=== PATIENT | female | born 1930 | race Caucasian/White ===

== ENCOUNTER 2016-12-05 16:34 | Inpatient (IN) | payer MEDICARE ==
[~2016-12-05] VITALS: Ht 157.5 cm; Wt 66.4 kg
[~2016-12-05 16:34] MED LIST: APIX2.5 PO; DIVA250ER PO; LEVO50TA4 PO; ULTR50TA PO; [UNRECOGNIZED DRUG - CODE] PO
[2016-12-05 16:38] VITALS: BP 139/64; PULSE 44; RESP 12; TEMP 98.2; O2SAT 94
[2016-12-05] MEDS ORDERED: SODIUM CHLORIDE 0.9% FLUSH 5 ML FLUSH IVF PRN ×2 (20:15→22:45)
[2016-12-05 20:16] VITALS: BP 136/63; PULSE 41; RESP 16; O2SAT 97
--- NOTE | 2016-12-05 20:18 | PD ---
HPI Chief Complaint: Neuro Symptoms/ Deficits Time Seen by Provider: 20:15 Travel History International Travel<30 days: No Contact w/Intl Traveler<30days: No Traveled to known affect area: No History of Present Illness HPI Patient comes in with her daughter for evaluation of altered mental status lasted approximately an hour last night. Daughter reports EMS came and checked on the patient was told that she did not meet stroke criteria recommended following up with primary care doctor today. They contacted primary care doctor today who recommended she come to the emergency room for further treatment and evaluation. Daughter states that she's had a couple more episodes of this today were her mother has had some "garbled speech" and not recognizing her or daughter's . Patient has a history of stroke in 2014 and takes eliquist for this. Daughter reports she only gives approximate half a dose of the Erica Isaías secondary to patient's hemorrhoids. Patient is notably bradycardic and daughter reports this is chronic and sees Dr. Bradford for this. Patient sees Dr. Patton yearly for her history of CVA. Patient denies any medical complaints or concerns at the moment. Denies any pain anywhere. Is uncertain as to why she is here. PFSH Past Medical History Arthritis: Yes (BILATERAL KNEES) Asthma: No Atrial Fibrillation: Yes Blood Disorders: No Heart Rhythm Problems: Yes (afib) Cancer: No Cardiovascular Problems: Yes (BRADYCARDIA, SICK SINUS SYNDROME) High Cholesterol: Yes Chest Pain: Yes Congestive Heart Failure: No COPD: No Cerebrovascular Accident: Yes Dementia: Yes Diabetes: No Diminished Hearing: No Endocrine: Yes Gastrointestinal Disorders: Yes (incontinence) GERD: Yes Genitourinary: Yes (incontinence) Hypertension: Yes Musculoskeletal: Yes Neurologic: Yes (?dementia/ forgetfullness) Reproductive: No Respiratory: No Seizures: Yes Sleep Apnea: No Thyroid Disease: Yes (HYPOTHYROIDISM) Past Surgical History Tonsillectomy: Yes Other Surgery: Yes (breast biopsy) Social History Alcohol Use: No Tobacco Use: No Substance Use: No Allergies-Medications (Allergen,Severity, Reaction): Coded Allergies: Lasix (Verified Allergy, Unknown, SWELLING, HIVES, 12/05/16) Tylenol #3 (Verified Allergy, Unknown, CONFUSION, 12/05/16) Codeine (Unverified Adverse Reaction, Severe, 12/05/16) CONFUSION Reported Meds & Prescriptions Reported Meds & Active Scripts Active Ultram (Tramadol HCl) 50 Mg Tab 1-2 Mg PO Q4H PRN Depakote ER 250 mg (Divalproex Sodium) 250 Mg Mirza 250 Mg PO BID 30 Days Eliquis (Apixaban) 2.5 Mg Tab 2.5 Mg PO BID 30 Days Reported Amiloride-Hydrochlorothiazide (Amiloride/HCTZ) 5-50 Mg Tab 1 Tab PO DAILY Give with food. Tramadol (Tramadol HCl) 50 Mg Tab 50 Mg PO Q4H PRN Levothyroxine (Levothyroxine Sodium) 50 Mcg Tab 50 Mcg PO DAILY Divalproex ER (Divalproex Sodium) 250 Mg Mirza 250 Mg PO DAILY Eliquis (Apixaban) 2.5 Mg Tab 2.5 Mg PO BID [Amiloride-Hctz] 5-50 Mg PO DAILY Levothyroxine 50 mcg (Levothyroxine Sodium) 50 Mcg Tab 1 Tab PO DAILY Review of Systems ROS Limitations: Altered Mental Status Except as stated in HPI: all other systems reviewed are Neg Physical Exam Exam Limitations: Altered Mental Status Narrative GENERAL: Well-developed, overly nourished, in no acute distress, and non-ill appearing. SKIN: Warm and dry. HEAD: Atraumatic. Normocephalic. EYES: Pupils equal and round. EOMI. No scleral icterus. No injection or drainage. ENT: No nasal bleeding or discharge. Mucous membranes pink and moist. NECK: Trachea midline. Supple. No nuclear rigidity. CARDIOVASCULAR: Bradycardia rate and regular rhythm. No murmur appreciated. RESPIRATORY: No accessory muscle use. No respiratory distress. Clear to auscultation. Breath sounds equal bilaterally. Patient is noted to have an oxygen saturation of 88% on room air during exam. GASTROINTESTINAL: Abdomen soft, non-tender, nondistended. Hepatic and splenic margins not palpable. Normal bowel sounds 4. No pulsatile mass. MUSCULOSKELETAL: No obvious deformities. No clubbing. No cyanosis. No edema. Full range of motion. No pronator drift, equal rise and fall of eyebrows bilaterally. Strength equal bilateral lower extremity with plantar and dorsiflexion. No deviation of the tongue. NEUROLOGICAL: Awake and alert. No obvious cranial nerve deficits. Motor grossly within normal limits. Normal speech. PSYCHIATRIC: Appropriate mood and affect; insight and judgment normal. Data Data Last Documented VS Vital Signs Date Time Temp Pulse Resp B/P Pulse Ox O2 Delivery O2 Flow Rate FiO2 12/05/16 20:16 41 16 136/63 97 Nasal Cannula 2 12/05/16 16:38 98.2 Orders Electrocardiogram (12/05/16 20:10) Complete Blood Count With Diff (12/05/16 20:10) Comprehensive Metabolic Panel (12/05/16 20:10) Prothrombin Time / Inr (Pt) (12/05/16 20:10) Act Partial Throm Time (Ptt) (12/05/16 20:10) Urinalysis - C+S If Indicated (12/05/16 20:10) Chest, Single Ap (12/05/16 20:10) Blood Glucose (12/05/16 20:10) Ecg Monitoring (12/05/16 20:10) Iv Access Insert/Monitor (12/05/16 20:10) Oximetry (12/05/16 20:10) Sodium Chloride 0.9% Flush (Ns Flush) (12/05/16 20:15) Ct Brain W/O Iv Contrast(Rout) (12/05/16 ) Arterial Blood Gas (Abg) (12/05/16 ) Oxygen Administration (12/05/16 20:10) Admit Order (Ed Use Only) (12/05/16 22:13) Labs Laboratory Tests Test 12/05/16 12/05/16 12/05/16 20:14 20:25 21:11 White Blood Count 6.2 TH/MM3 Red Blood Count 3.72 MIL/MM3 Hemoglobin 12.8 GM/DL Hematocrit 36.9 % Mean Corpuscular Volume 99.1 FL Mean Corpuscular Hemoglobin 34.5 PG Mean Corpuscular Hemoglobin 34.8 % Concent Red Cell Distribution Width 14.0 % Platelet Count 247 TH/MM3 Mean Platelet Volume 7.6 FL Neutrophils (%) (Auto) 54.7 % Lymphocytes (%) (Auto) 32.0 % Monocytes (%) (Auto) 12.0 % Eosinophils (%) (Auto) 0.7 % Basophils (%) (Auto) 0.6 % Neutrophils # (Auto) 3.4 TH/MM3 Lymphocytes # (Auto) 2.0 TH/MM3 Monocytes # (Auto) 0.7 TH/MM3 Eosinophils # (Auto) 0.0 TH/MM3 Basophils # (Auto) 0.0 TH/MM3 CBC Comment DIFF FINAL Differential Comment Prothrombin Time 11.2 SEC Prothromb Time International 1.0 RATIO Ratio Activated Partial 27.1 SEC Thromboplast Time Sodium Level 130 MEQ/L Potassium Level 3.7 MEQ/L Chloride Level 93 MEQ/L Carbon Dioxide Level 29.2 MEQ/L Anion Gap 8 MEQ/L Blood Urea Nitrogen 13 MG/DL Creatinine 0.62 MG/DL Estimat Glomerular Filtration 91 ML/MIN Rate Random Glucose 93 MG/DL Calcium Level 8.7 MG/DL Total Bilirubin 0.4 MG/DL Aspartate Amino Transf 15 U/L (AST/SGOT) Alanine Aminotransferase 17 U/L (ALT/SGPT) Alkaline Phosphatase 58 U/L Total Protein 6.8 GM/DL Albumin 3.6 GM/DL Blood Gas Puncture Site LT BRACHIAL Blood Gas Patient Temperature 98.6 Blood Gas HCO3 25 mmol/L Blood Gas Base Excess 1.9 mmol/L Blood Gas Oxygen Saturation 96 % Arterial Blood pH 7.47 Arterial Blood Partial 35 mmHg Pressure CO2 Arterial Blood Partial 119 mmHG Pressure O2 Arterial Blood Oxygen Content 17.2 Vol % Arterial Blood 2.1 % Carboxyhemoglobin Arterial Blood Methemoglobin 1.6 % Blood Gas Hemoglobin 12.7 G/DL Oxygen Delivery Device NASAL CANNULA Blood Gas Liter Flow 2 L/M Urine Color YELLOW Urine Turbidity HAZY Urine pH 7.0 Urine Specific [place] 1.018 Urine Protein NEG mg/dL Urine Glucose (UA) NEG mg/dL Urine Ketones NEG mg/dL Urine Occult Blood NEG Urine Nitrite NEG Urine Bilirubin NEG Urine Urobilinogen LESS THAN 2.0 MG/DL Urine Leukocyte Esterase NEG Urine RBC 5 /hpf Urine WBC 1 /hpf Microscopic Urinalysis Comment CATH-CULT NOT IND MDM Medical Decision Making Medical Screen Exam Complete: Yes Emergency Medical Condition: Yes Interpretation(s) EKG read by Dr. Zhang shows bradycardia with ventricular rate of 38. No STEMI. Differential Diagnosis Hypoxic, worsening dementia, electrolyte abnormality, pneumonia, UTI, tumor, TIA , other Narrative Course Patient's exam initial laboratory radiologic studies were obtained and reviewed. Discussed patient with Dr. Zhang, who saw and evaluated the patient and recommends having patient placed in observation for TIA. Discussed all findings and plan of care with patient and her daughter, who is agreeable to have patient admitted. All questions were answered. Physician Communication Physician Communication [address] Gonzales who is agreeable to admit the patient. Diagnosis Primary Impression: TIA (transient ischemic attack) Qualified Code: G45.9 - Transient cerebral ischemia, unspecified type Admitting Information Admitting Physician Requests: Observation Condition: Stable Eliazar Hoover Dec 05, 2016 20:18
[2016-12-05 20:30] LABS: BLOOD GAS BASE EXCESS 1.9 mmol/L (-2-2); BLOOD GAS CARBOXYHEMOGLOBIN 2.1 % (0-4); BLOOD GAS HCO3 25 mmol/L (22-26); BLOOD GAS METHEMOGLOBIN 1.6 % (0-2); BLOOD GAS O2 HGB SATURATION 96 % (90-100); BLOOD GAS OXYGEN CONTENT 17.2 Vol % (12.0-20.0); BLOOD GAS PCO2 35 mmHg (38-42); BLOOD GAS PO2 119 mmHG (61-120); BLOOD GAS TOTAL HGB 12.7 G/DL (12.0-16.0); CRITICAL VALUE NO; DRAW SITE LT BRACHIAL; LITER FLOW 2 L/M; NUMBER OF ARTERIAL PUNCTURES 2; OXYGEN DEVICE NASAL CANNULA; STAT YES; TEMP CORR TO 98.6; ULNAR PULSE Y
[2016-12-05] MEDS ORDERED: LEVO50TA4 PO (20:45)
[2016-12-05] MEDS ORDERED: DIVA250T3 PO (20:45)
[2016-12-05] MEDS ORDERED: TRAM50TA PO (20:45)
[2016-12-05] MEDS ORDERED: MODU550 PO (20:45)
[2016-12-05] MEDS ORDERED: APIX2.5T PO (20:45)
[2016-12-05 20:51] LABS: AUTOMATED NEUTROPHIL # 3.4 TH/MM3 (1.8-7.7); BASOPHIL % 0.6 % (0.0-2.0); EOSINOPHIL % 0.7 % (0.0-4.0); HEMATOCRIT 36.9 % (35.0-46.0); HEMO FLAGS DIFF FINAL; MEAN CELL VOLUME 99.1 FL (80.0-100.0); MEAN CORPUSCULAR HEMOGLOBIN 34.5 PG (27.0-34.0); MEAN CORPUSCULAR HGB CONC 34.8 % (32.0-36.0); NEUT % 54.7 % (16.0-70.0); PLATELET COUNT 247 TH/MM3 (150-450); RED BLOOD COUNT 3.72 MIL/MM3 (4.00-5.30); WHITE BLOOD COUNT 6.2 TH/MM3 (4.0-11.0)
[2016-12-05 21:01] LABS: APTT (PATIENT) 27.1 SEC (24.3-30.1); PROTHROMBIN TIME - PATIENT 11.2 SEC (9.8-11.6)
[2016-12-05 21:19] LABS: ANION GAP 8 MEQ/L (5-15); AST (GOT) 15 U/L (15-37); BICARBONATE 29.2 MEQ/L (21.0-32.0); BLOOD UREA NITROGEN 13 MG/DL (7-18); CHLORIDE 93 MEQ/L (98-107); GLOMERULAR FILTRATION RATE 91 ML/MIN (>89); POTASSIUM 3.7 MEQ/L (3.5-5.1); SODIUM (NA) 130 MEQ/L (136-145)
[2016-12-05 21:23] LABS: ALKALINE PHOSPHATASE 58 U/L (45-117); ALT (GPT) 17 U/L (10-53); TOTAL BILIRUBIN ADULT 0.4 MG/DL (0.2-1.0)
--- NOTE | 2016-12-05 21:25 | RADRPT ---
EXAM DATE/TIME: 12/05/2016 20:57 [facility] COMPARISON: CT BRAIN W/O CONTRAST, September 24, 2014, 18:15. INDICATIONS : Altered mental status, confusion and lethargy. RADIATION DOSE: 34.54 CTDIvol (mGy) MEDICAL HISTORY : Cardiovascular disease. Cerebrovascular disease. Dementia.Seizures. SURGICAL HISTORY : None. ENCOUNTER: Initial ACUITY: 1 day PAIN SCALE: 0/10 LOCATION: cranial TECHNIQUE: Multiple contiguous axial images were obtained of the head. Using automated exposure control and adj ustment of the mA and/or kV according to patient size, radiation dose was kept as low as reasonably a chievable to obtain optimal diagnostic quality images. FINDINGS: CEREBRUM: The ventricles are normal for age. No evidence of midline shift, mass lesion, hemorrhage or acute in farction. No extra-axial fluid collections are seen. POSTERIOR FOSSA: The cerebellum and brainstem are intact. The 4th ventricle is midline. The cerebellopontine angle i s unremarkable. EXTRACRANIAL: The visualized portion of the orbits is intact. SKULL: The calvaria is intact. No evidence of skull fracture. CONCLUSION: 1. No acute intracranial abnormalities. White matter ischemic changes. Jerad Hull MD on December 05, 2016 at 21:22 Board Certified Radiologist. This report was verified electronically.
--- NOTE | 2016-12-05 21:32 | RADRPT ---
EXAM DATE/TIME: 12/05/2016 18:42 [facility] COMPARISON: CHEST SINGLE AP, February 06, 2015, 3:33. INDICATIONS : Syncopal episode today. MEDICAL HISTORY : Hypertension. Hypercholesterolemia. Seizures. SURGICAL HISTORY : None. ENCOUNTER: Initial ACUITY: 1 day PAIN SCORE: Non-responsive. LOCATION: Bilateral chest FINDINGS: A single view of the chest demonstrates the lungs to be symmetrically aerated without evidence of mas s, infiltrate or effusion. Minimal basilar atelectasis. Cardiomegaly. Tortuous aorta. CONCLUSION: 1. Basilar atelectasis. Cardiomegaly. Tortuous aorta. Jerad Hull MD on December 05, 2016 at 21:28 Board Certified Radiologist. This report was verified electronically.
[2016-12-05 21:36] LABS: BLOOD, URINE NEG (NEG); COMMENT (UR) CATH-CULT NOT IND; CULTURE IF INDICATED CATH CULTURE NOT IND; GLUCOSE,URINE NEG (NEG); KETONE, URINE NEG (NEG); NITRITE,URINE NEG (NEG); URINE COLOR YELLOW (YELLW/STRAW)
--- NOTE | 2016-12-05 22:25 | PD ---
Data Data Last Documented VS Vital Signs Date Time Temp Pulse Resp B/P Pulse Ox O2 Delivery O2 Flow Rate FiO2 12/05/16 20:16 41 16 136/63 97 Nasal Cannula 2 12/05/16 16:38 98.2 Orders Electrocardiogram (12/05/16 20:10) Complete Blood Count With Diff (12/05/16 20:10) Comprehensive Metabolic Panel (12/05/16 20:10) Prothrombin Time / Inr (Pt) (12/05/16 20:10) Act Partial Throm Time (Ptt) (12/05/16 20:10) Urinalysis - C+S If Indicated (12/05/16 20:10) Chest, Single Ap (12/05/16 20:10) Blood Glucose (12/05/16 20:10) Ecg Monitoring (12/05/16 20:10) Iv Access Insert/Monitor (12/05/16 20:10) Oximetry (12/05/16 20:10) Sodium Chloride 0.9% Flush (Ns Flush) (12/05/16 20:15) Ct Brain W/O Iv Contrast(Rout) (12/05/16 ) Arterial Blood Gas (Abg) (12/05/16 ) Oxygen Administration (12/05/16 20:10) Admit Order (Ed Use Only) (12/05/16 22:13) Labs Laboratory Tests Test 12/05/16 12/05/16 12/05/16 20:14 20:25 21:11 White Blood Count 6.2 TH/MM3 Red Blood Count 3.72 MIL/MM3 Hemoglobin 12.8 GM/DL Hematocrit 36.9 % Mean Corpuscular Volume 99.1 FL Mean Corpuscular Hemoglobin 34.5 PG Mean Corpuscular Hemoglobin 34.8 % Concent Red Cell Distribution Width 14.0 % Platelet Count 247 TH/MM3 Mean Platelet Volume 7.6 FL Neutrophils (%) (Auto) 54.7 % Lymphocytes (%) (Auto) 32.0 % Monocytes (%) (Auto) 12.0 % Eosinophils (%) (Auto) 0.7 % Basophils (%) (Auto) 0.6 % Neutrophils # (Auto) 3.4 TH/MM3 Lymphocytes # (Auto) 2.0 TH/MM3 Monocytes # (Auto) 0.7 TH/MM3 Eosinophils # (Auto) 0.0 TH/MM3 Basophils # (Auto) 0.0 TH/MM3 CBC Comment DIFF FINAL Differential Comment Prothrombin Time 11.2 SEC Prothromb Time International 1.0 RATIO Ratio Activated Partial 27.1 SEC Thromboplast Time Sodium Level 130 MEQ/L Potassium Level 3.7 MEQ/L Chloride Level 93 MEQ/L Carbon Dioxide Level 29.2 MEQ/L Anion Gap 8 MEQ/L Blood Urea Nitrogen 13 MG/DL Creatinine 0.62 MG/DL Estimat Glomerular Filtration 91 ML/MIN Rate Random Glucose 93 MG/DL Calcium Level 8.7 MG/DL Total Bilirubin 0.4 MG/DL Aspartate Amino Transf 15 U/L (AST/SGOT) Alanine Aminotransferase 17 U/L (ALT/SGPT) Alkaline Phosphatase 58 U/L Total Protein 6.8 GM/DL Albumin 3.6 GM/DL Blood Gas Puncture Site LT BRACHIAL Blood Gas Patient Temperature 98.6 Blood Gas HCO3 25 mmol/L Blood Gas Base Excess 1.9 mmol/L Blood Gas Oxygen Saturation 96 % Arterial Blood pH 7.47 Arterial Blood Partial 35 mmHg Pressure CO2 Arterial Blood Partial 119 mmHG Pressure O2 Arterial Blood Oxygen Content 17.2 Vol % Arterial Blood 2.1 % Carboxyhemoglobin Arterial Blood Methemoglobin 1.6 % Blood Gas Hemoglobin 12.7 G/DL Oxygen Delivery Device NASAL CANNULA Blood Gas Liter Flow 2 L/M Urine Color YELLOW Urine Turbidity HAZY Urine pH 7.0 Urine Specific [place] 1.018 Urine Protein NEG mg/dL Urine Glucose (UA) NEG mg/dL Urine Ketones NEG mg/dL Urine Occult Blood NEG Urine Nitrite NEG Urine Bilirubin NEG Urine Urobilinogen LESS THAN 2.0 MG/DL Urine Leukocyte Esterase NEG Urine RBC 5 /hpf Urine WBC 1 /hpf Microscopic Urinalysis Comment CATH-CULT NOT IND MDM Medical Record Reviewed: Yes Supervised Visit with GRZEGORZ: Yes Narrative Course I, Dr. Zhang, have reviewed the advance practice practitioner's documentation and am in agreement, met with the patient face to face, made the diagnosis, and the medical decision making was done by me. *My assessment and Findings: CBC & BMP Diagram 12/05/16 20:14 LFTs normal INR 1.0 UA: No UTI AB.47/35/[id number] normal EKG: rate 38, no obvious P waves, pt has history of bradycardia Events could reflect TIA. Pt on Eloquis. Diagnosis Primary Impression: TIA (transient ischemic attack) Qualified Code: G45.9 - Transient cerebral ischemia, unspecified type Admitting Information Admitting Physician Requests: Observation Condition: Stable Hernandez Zhang MD Dec 05, 2016 22:25
--- NOTE | 2016-12-05 22:38 | HHI.HP ---
HPI Service [facility] Hospitalists Primary Care Physician Edward Thomas Admission Diagnosis TIA Chief Complaint: confusion, altered speech pattern Travel History International Travel<30 Days: No Contact w/Intl Traveler <30 Da: No Traveled to Known Affected Are: No History of Present Illness Patient with history of CVA and dementia comes in with her daughter for evaluation of altered mental status and speech change lasted partially an hour last night around 10:15 PM. Reportedly the patient was saying a stream of syllables that did not make any sense and produced no recognizable words. Patient was able to get up and go to the restroom during this event last night and came back to bed but still was somewhat confused. Daughter reports EMS came and checked on the patient last night at home and that she did not meet stroke criteria. They recommended following up with primary care doctor today. They contacted primary care doctor this a.m. and he reportedly returned the call around 3:30 advised seeing them to go to the ER for evaluation for possible TIA or stroke. Daughter states that she's had a couple more episodes of this today were mothers had some "garbled speech" and not recognizing her . Patient has a history of stroke in 2014 and takes Eliquis for this. Daughter proportionally gives approximate half a dose of the Eliquis secondary to patient's hemorrhoids which occasionally bleed. Patient is notably bradycardic and reports this is chronic and sees Dr. Bradford for this. Review of chart reveals that patient indeed has heart rate often in the 40s to low 50s. Patient sees Dr. Patton yearly for her history of CVA. Patient denies any medical complaints or concerns at the moment but is a bit confused. Denies any pain anywhere. Is uncertain as to why she is here. Review of Systems Constitutional: COMPLAINS OF: Fatigue, DENIES: Diaphoretic episodes, Fever, Weight gain, Weight loss, Chills, Dizziness, Change in appetite, Night Sweats Eyes: DENIES: Blurred vision, Diplopia, Eye inflammation, Eye pain, Vision loss , Photosensitivity, Double Vision Ears, nose, mouth, throat: DENIES: Tinnitus, Hearing loss, Vertigo, Nasal discharge, Oral lesions, Throat pain, Hoarseness, Ear Pain, Running Nose, Epistaxis, Sinus Pain, Toothache, Odynophagia Respiratory: DENIES: Apneas, Cough, Snoring, Wheezing, Hemoptysis, Sputum production, Shortness of breath Cardiovascular: DENIES: Chest pain, Palpitations, Syncope, Dyspnea on Exertion , PND, Lower Extremity Edema, Orthopnea, Claudication Gastrointestinal: DENIES: Abdominal pain, Black stools, Bloody stools, Constipation, Diarrhea, GERD, Nausea, Reflux, Vomiting, Difficulty Swallowing, Anorexia, See HPI Musculoskeletal: COMPLAINS OF: Joint pain Integumentary: DENIES: Abnormal pigmentation, Pruritus, Rash, Nail changes, Breast masses, Breast skin changes, Nipple discharge Hematologic/lymphatic: COMPLAINS OF: Bruising Neurologic: COMPLAINS OF: Speech Problems, DENIES: Abnormal gait, Headache, Localized weakness, Paresthesias, Seizures, Tremor, Poor Balance Psychiatric: COMPLAINS OF: Anxiety, Confusion Past Family Social History Past Medical History afib..slow ventricular response cva with tpa 2014 bradycardia..asx and evaluated by cardiology htn hypothyroidism dementia remote history of sz Past Surgical History hx hysterectomy remote injury/repair of LLE fx with chronic edema Allergies: Coded Allergies: Lasix (Verified Allergy, Unknown, SWELLING, HIVES, 12/05/16) Tylenol #3 (Verified Allergy, Unknown, CONFUSION, 12/05/16) Codeine (Unverified Adverse Reaction, Severe, 12/05/16) CONFUSION Family History Noncontributory Social History Lives with her daughter and son-in-law No tobacco or alcohol use 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 Somewhat confused but pleasant and follows simple commands. No facial asymmetry. Speech is normal on my exam. SKIN: Few purpuric lesions on forearms. Cool and dry. HEAD: Atraumatic. Normocephalic. No temporal or scalp tenderness. EYES: Pupils equal round and reactive. Extraocular motions intact. No scleral icterus. No injection or drainage. ENT: Nose without bleeding, purulent drainage or septal hematoma. Airway patent. NECK: Trachea midline. No JVD or lymphadenopathy. Supple, nontender, no meningeal signs. CARDIOVASCULAR: Regular rhythm with rate in 40s to 50s. 2/6 systolic ejection murmur heard in aortic space. No gallop or rub. RESPIRATORY: Clear to auscultation. Breath sounds equal bilaterally. No wheezes , rales, or rhonchi. GASTROINTESTINAL: Abdomen soft, non-tender, nondistended. No hepato-splenomegaly , or palpable masses. No guarding. MUSCULOSKELETAL: Extremities without clubbing or cyanosis. Trace edema distal left lower extremity which family reports is chronic. Moves all extremities well. No joint tenderness, effusion, or edema noted. No calf tenderness. NEUROLOGICAL: Awake and alert. Cranial nerves II through XII intact. Motor and sensory grossly within normal limits. Five out of 5 muscle strength in all muscle groups. Normal speech. Laboratory Laboratory Tests Test 12/05/16 12/05/16 12/05/16 20:14 20:25 21:11 White Blood Count 6.2 Red Blood Count 3.72 Hemoglobin 12.8 Hematocrit 36.9 Mean Corpuscular Volume 99.1 Mean Corpuscular Hemoglobin 34.5 Mean Corpuscular Hemoglobin 34.8 Concent Red Cell Distribution Width 14.0 Platelet Count 247 Mean Platelet Volume 7.6 Neutrophils (%) (Auto) 54.7 Lymphocytes (%) (Auto) 32.0 Monocytes (%) (Auto) 12.0 Eosinophils (%) (Auto) 0.7 Basophils (%) (Auto) 0.6 Neutrophils # (Auto) 3.4 Lymphocytes # (Auto) 2.0 Monocytes # (Auto) 0.7 Eosinophils # (Auto) 0.0 Basophils # (Auto) 0.0 CBC Comment DIFF FINAL Differential Comment Prothrombin Time 11.2 Prothromb Time International 1.0 Ratio Activated Partial 27.1 Thromboplast Time Sodium Level 130 Potassium Level 3.7 Chloride Level 93 Carbon Dioxide Level 29.2 Anion Gap 8 Blood Urea Nitrogen 13 Creatinine 0.62 Estimat Glomerular Filtration 91 Rate Random Glucose 93 Calcium Level 8.7 Total Bilirubin 0.4 Aspartate Amino Transf 15 (AST/SGOT) Alanine Aminotransferase 17 (ALT/SGPT) Alkaline Phosphatase 58 Total Protein 6.8 Albumin 3.6 Blood Gas Puncture Site LT BRACHIAL Blood Gas Patient Temperature 98.6 Blood Gas HCO3 25 Blood Gas Base Excess 1.9 Blood Gas Oxygen Saturation 96 Arterial Blood pH 7.47 Arterial Blood Partial 35 Pressure CO2 Arterial Blood Partial 119 Pressure O2 Arterial Blood Oxygen Content 17.2 Arterial Blood 2.1 Carboxyhemoglobin Arterial Blood Methemoglobin 1.6 Blood Gas Hemoglobin 12.7 Oxygen Delivery Device NASAL CANNULA Blood Gas Liter Flow 2 Urine Color YELLOW Urine Turbidity HAZY Urine pH 7.0 Urine Specific [place] 1.018 Urine Protein NEG Urine Glucose (UA) NEG Urine Ketones NEG Urine Occult Blood NEG Urine Nitrite NEG Urine Bilirubin NEG Urine Urobilinogen LESS THAN 2.0 Urine Leukocyte Esterase NEG Urine RBC 5 Urine WBC 1 Microscopic Urinalysis Comment CATH-CULT NOT IND Result Diagram: 12/05/16201312/05/162013 Imaging Last 72 hours Impressions Chest X-Ray 12/05/162009 Signed Impressions: Service Date/Time: Monday, December 05, 2016 18:42 - CONCLUSION: 1. Basilar atelectasis. Cardiomegaly. Tortuous aorta. Jerad Hull MD Head CT 12/05/16 0000 Signed Impressions: Service Date/Time: Monday, December 05, 2016 20:57 - CONCLUSION: 1. No acute intracranial abnormalities. White matter ischemic changes. Jerad Hull MD Assessment and Plan Problem List: (1) Episode of change in speech Status: Acute Plan: Questionable etiology. Patient is on eloquent but has not been on full dose reproducibly. ? TIA but not other focal deficits. Check imaging, Echo. Hopefully d/c tomorrow if not acute findings. Will need full dose Eliquis (2) Impaired cognition Status: Chronic Plan: appears to have had flare overnight. Continue to monitor. Has underlying dementia. (3) Afib Status: Chronic Plan: rate is bradycardic chronically. Will continue Eliquis and follow as outpt. (4) Hypothyroid Status: Chronic Plan: check tSh (5) Hyponatremia Status: Chronic Plan: Relatively stable serum sodium value. Discussed Condition With Patient and family Problem Qualifiers (1) Afib: Qualified Code: I48.2 - Chronic atrial fibrillation Ruslan Gonzales PhD MD Dec 05, 2016 22:38
[2016-12-05] MEDS ORDERED: GLUCAGON 1 MG/ML VIAL OTHER PRN (22:45)
[2016-12-05] MEDS ORDERED: DEXTROSE 50% IN WATER 50 ML VIAL(D50) IV PUSH PRN (22:45)
[2016-12-06] VITALS (10 sets, daily range): BP systolic 119–169; BP diastolic 56–78; PULSE 39–56; RESP 16–20; TEMP 97.8–98; O2SAT 95–100
[2016-12-06] MEDS: APIXABAN 5 MG TABLET PO SCH ×3 (00:55→21:00)
[2016-12-06 04:33] LABS: HDL CHOLESTEROL 103.9 MG/DL (40.0-60.0); LDL CHOLESTEROL 83 MG/DL (0-99)
[2016-12-06 05:55] LABS: ALKALINE PHOSPHATASE 48 U/L (45-117); AST (GOT) 30 U/L (15-37); BLOOD UREA NITROGEN 9 MG/DL (7-18); GLOMERULAR FILTRATION RATE 98 ML/MIN (>89)
[2016-12-06 05:56] LABS: ALT (GPT) 18 U/L (10-53); ANION GAP 9 MEQ/L (5-15); BICARBONATE 27.7 MEQ/L (21.0-32.0); CHLORIDE 96 MEQ/L (98-107); POTASSIUM 4.6 MEQ/L (3.5-5.1); SODIUM (NA) 133 MEQ/L (136-145); TOTAL BILIRUBIN ADULT 0.6 MG/DL (0.2-1.0)
[2016-12-06] MEDS: LEVOTHYROXINE SODIUM 50 MCG TAB PO SCH (06:16)
[2016-12-06] MEDS: INSULIN ASPART SUPPLEMENTAL SCALE SQ SCH ×4 (07:00→21:00)
[2016-12-06] MEDS ORDERED: MODU550 PO (08:48)
[2016-12-06] MEDS: SODIUM CHLORIDE 0.9% FLUSH 5 ML FLUSH IVF SCH ×2 (09:03→21:00)
[2016-12-06] MEDS: aMILoride/HCTZ 5 MG/50 MG TAB PO SCH (09:03)
[2016-12-06] MEDS: DIVALPROEX SODIUM E.R. 250 MG TAB PO SCH (09:03)
--- NOTE | 2016-12-06 11:01 | RADRPT ---
EXAM DATE/TIME: 12/06/2016 09:01 [facility] COMPARISON: US CAROTID ARTERIES, September 25, 2014, 8:47. INDICATIONS : Cerebrovascular accident. MEDICAL HISTORY : Hypertension. Hypothyroidism. CVA. Dementia. AMS. Stroke. Afib. SURGICAL HISTORY : Hysterectomy. Left lower extremity fracture repair. ENCOUNTER: Subsequent ACUITY: 1 day PAIN SCORE: 0/10 LOCATION: Bilateral neck PEAK SYSTOLIC VELOCITIES (cm/sec): ICA/CCA RATIO: Right: 1.1 Left: 1.0 ICA: Right: 100 Left: 66 CCA: Right: 94 Left: 67 ECA: Right: 69 Left: 32 VERTEBRAL: Right: 36 antegrade Left: 51 antegrade Elevated flow velocities and ICA/CCA ratios have been found to correlate with increased degrees of vessel stenosis, calculated as percentage of diameter relative to a normal segment of distal ICA/CCA FINDINGS: RIGHT CAROTID: No significant stenosis is visualized. The waveforms are within normal limits. Mild atherosclerotic plaque is noted. LEFT CAROTID: No significant stenosis is visualized. The waveforms are within normal limits. Mild atherosclerotic plaque is noted. VERTEBRAL ARTERIES: Antegrade flow is seen in both vertebral arteries. MISCELLANEOUS: None. CONCLUSION: No hemodynamically significant stenosis. Harshal Winters MD on December 06, 2016 at 10:58 Board Certified Radiologist. This report was verified electronically.
--- NOTE | 2016-12-06 12:28 | HHI.PR ---
Subjective Remarks No complaints. Pt is pleasantly confused Alert and oriented to self only Objective Vitals Vital Signs Date Time Temp Pulse Resp B/P Pulse Ox O2 Delivery O2 Flow Rate FiO2 12/06/16 10:20 39 18 141/61 98 Nasal Cannula 2 12/06/16 09:07 44 18 131/67 98 Nasal Cannula 2 12/06/16 07:55 97.8 40 17 131/62 100 Nasal Cannula 2 12/06/16 07:55 43 17 98 Nasal Cannula 2 12/06/16 07:55 18 98 Nasal Cannula 2 12/06/16 07:37 97 Nasal Cannula 2.00 12/06/16 04:51 41 16 130/60 96 Nasal Cannula 2 12/06/16 00:55 40 16 122/56 97 Nasal Cannula 2 12/05/16 20:16 41 16 136/63 97 Nasal Cannula 2 12/05/16 20:16 97 Nasal Cannula 2 12/05/16 16:38 98.2 44 12 139/64 94 Room Air Result Diagram: 12/05/16201312/06/16 0355 Other Results Laboratory Tests Test 12/05/16 12/05/16 12/05/16 12/06/16 20:14 20:25 21:11 03:55 White Blood Count 6.2 TH/MM3 Red Blood Count 3.72 MIL/MM3 Hemoglobin 12.8 GM/DL Hematocrit 36.9 % Mean Corpuscular Volume 99.1 FL Mean Corpuscular Hemoglobin 34.5 PG Mean Corpuscular Hemoglobin 34.8 % Concent Red Cell Distribution Width 14.0 % Platelet Count 247 TH/MM3 Mean Platelet Volume 7.6 FL Neutrophils (%) (Auto) 54.7 % Lymphocytes (%) (Auto) 32.0 % Monocytes (%) (Auto) 12.0 % Eosinophils (%) (Auto) 0.7 % Basophils (%) (Auto) 0.6 % Neutrophils # (Auto) 3.4 TH/MM3 Lymphocytes # (Auto) 2.0 TH/MM3 Monocytes # (Auto) 0.7 TH/MM3 Eosinophils # (Auto) 0.0 TH/MM3 Basophils # (Auto) 0.0 TH/MM3 CBC Comment DIFF FINAL Differential Comment Prothrombin Time 11.2 SEC Prothromb Time International 1.0 RATIO Ratio Activated Partial 27.1 SEC Thromboplast Time Sodium Level 130 MEQ/L 133 MEQ/L Potassium Level 3.7 MEQ/L 4.6 MEQ/L Chloride Level 93 MEQ/L 96 MEQ/L Carbon Dioxide Level 29.2 MEQ/L 27.7 MEQ/L Anion Gap 8 MEQ/L 9 MEQ/L Blood Urea Nitrogen 13 MG/DL 9 MG/DL Creatinine 0.62 MG/DL 0.58 MG/DL Estimat Glomerular Filtration 91 ML/MIN 98 ML/MIN Rate Random Glucose 93 MG/DL 83 MG/DL Calcium Level 8.7 MG/DL 8.7 MG/DL Total Bilirubin 0.4 MG/DL 0.6 MG/DL Aspartate Amino Transf 15 U/L 30 U/L (AST/SGOT) Alanine Aminotransferase 17 U/L 18 U/L (ALT/SGPT) Alkaline Phosphatase 58 U/L 48 U/L Total Protein 6.8 GM/DL 6.6 GM/DL Albumin 3.6 GM/DL 3.3 GM/DL Blood Gas Puncture Site LT BRACHIAL Blood Gas Patient Temperature 98.6 Blood Gas HCO3 25 mmol/L Blood Gas Base Excess 1.9 mmol/L Blood Gas Oxygen Saturation 96 % Arterial Blood pH 7.47 Arterial Blood Partial 35 mmHg Pressure CO2 Arterial Blood Partial 119 mmHG Pressure O2 Arterial Blood Oxygen Content 17.2 Vol % Arterial Blood 2.1 % Carboxyhemoglobin Arterial Blood Methemoglobin 1.6 % Blood Gas Hemoglobin 12.7 G/DL Oxygen Delivery Device NASAL CANNULA Blood Gas Liter Flow 2 L/M Urine Color YELLOW Urine Turbidity HAZY Urine pH 7.0 Urine Specific [place] 1.018 Urine Protein NEG mg/dL Urine Glucose (UA) NEG mg/dL Urine Ketones NEG mg/dL Urine Occult Blood NEG Urine Nitrite NEG Urine Bilirubin NEG Urine Urobilinogen LESS THAN 2.0 MG/DL Urine Leukocyte Esterase NEG Urine RBC 5 /hpf Urine WBC 1 /hpf Microscopic Urinalysis Comment CATH-CULT NOT IND Triglycerides Level 61 MG/DL Cholesterol Level 199 MG/DL LDL Cholesterol 83 MG/DL HDL Cholesterol 103.9 MG/DL Cholesterol/HDL Ratio 1.91 RATIO Thyroid Stimulating Hormone 4.500 uIU/ML 3rd Gen Imaging Last Impressions Head Magnetic Resonance Angiography 12/06/16 0000 Signed Impressions: Service Date/Time: Tuesday, December 06, 2016 12:34 - CONCLUSION: 1. Moderate to severe diffuse stenoses involving the mid and distal branches of the posterior cerebral arteries bilaterally. 2. Moderate diffuse stenosis involving the left MCA trifurcation branches. 3. Patent left posterior communicating artery. Harshal Winters MD Carotid Artery Ultrasound 12/06/16 Signed Impressions: Service Date/Time: Tuesday, December 06, 2016 09:01 - CONCLUSION: No hemodynamically significant stenosis. Harshal Winters MD Brain MRI 12/06/16 Signed Impressions: Service Date/Time: Tuesday, December 06, 2016 12:34 - CONCLUSION: 1. Moderate periventricular and subcortical white matter small vessel ischemic changes bilaterally. 2. Mild cerebral atrophy. 3. No acute infarct, acute hemorrhage , mass effect or extra-axial fluid collections. 4. Mucosal thickening of the right sphenoid sinus. Harshal Winters MD Chest X-Ray 12/05/162009 Signed Impressions: Service Date/Time: Monday, December 05, 2016 18:42 - CONCLUSION: 1. Basilar atelectasis. Cardiomegaly. Tortuous aorta. Jerad Hull MD Head CT 12/05/16 Signed Impressions: Service Date/Time: Monday, December 05, 2016 20:57 - CONCLUSION: 1. No acute intracranial abnormalities. White matter ischemic changes. Jerad Hull MD Last Impressions Carotid Artery Ultrasound 12/06/16 Signed Impressions: Service Date/Time: Tuesday, December 06, 2016 09:01 - CONCLUSION: No hemodynamically significant stenosis. Harshal Winters MD Chest X-Ray 12/05/162009 Signed Impressions: Service Date/Time: Monday, December 05, 2016 18:42 - CONCLUSION: 1. Basilar atelectasis. Cardiomegaly. Tortuous aorta. Jerad Hull MD Head CT 12/05/16 Signed Impressions: Service Date/Time: Monday, December 05, 2016 20:57 - CONCLUSION: 1. No acute intracranial abnormalities. White matter ischemic changes. Jerad Hull MD Objective Remarks General: NAD, Alert and oriented to self only Chest: Poor inspiratory effort Cardiac: Techy, irregular Abd: +BS, soft ND/NT Ext: mild bilateral LE edema A/P Problem List: (1) Episode of change in speech Status: Acute Plan: - Pt admitted with reported altered mental status and speech change lasted partially an hour last night around 10:15 PM. - Questionable etiology. - Patient is on Eliquis but had not been on full dose reproducibly. - Head CT was negative for acute changes. - MRI Negative for an acute stroke. - MRA with moderate to severe diffuse stenoses involving the mid and distal branches of the posterior cerebral arteries bilaterally. Moderate diffuse stenosis involving the left MCA trifurcation branches. Patent left posterior communicating artery. . - Carotid US was negative for hemodynamically significant stenosis - PT/OT/ST - ? TIA but not other focal deficits. - 2D Echo ordered and is pending. - Eliquis 5mg po BID - Spoke with the pts daughter, Tania, and discussed the results of her MRI/ MRA and that the pt is a set up for a TIA with her noted diffuse stenosis in the posterior cerebral arteries and MCA. The pt will be treated medically. she states that she would like the pt to go home with HHC/PT instead of discharge to rehab. She and her take care of the pt and they are with her 21/05. Pt daughter reports that in the past she has been given medications for agitation while at a rehab previously and it made her agitation worse. The pts daughter is a retired nurse. She states that at home the pt takes Tramadol 25mg once or twice daily for chronic back discomfort which tends to calm her agitation down and requests that we resume her Tramadol instead of any antianxiety meds. - Pts daughter also requests that the pts diet be changed to pureed with gravy with the meats and add Ensure TID - We will order HHC/PT and plan for discharge in the AM (2) Impaired cognition Status: Chronic Plan: - Pt with underlying dementia. - Alert and oriented to self only - Dementia likely contributing to symptoms. - Continue to monitor. (3) Afib Status: Chronic Plan: - Rate is bradycardic chronically. - Continue Eliquis and follow as outpt. (4) Hypothyroid Status: Chronic Plan: - TSH is 4.500 - Check free T4 (5) Hyponatremia Status: Chronic Plan: - Relatively stable serum sodium value. Assessment and Plan Patient examined. Assessment and plan formulated with Nery Watson PA-C. I agree with the above. possible tia. 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 dementia. discussed with family. d/c home in AM with hhc/ Problem Qualifiers (1) Afib: Qualified Code: I48.2 - Chronic atrial fibrillation [place],Nery E PA Dec 06, 2016 12:28 Ochoa Meier MD Dec 06, 2016 17:22
--- NOTE | 2016-12-06 14:35 | RADRPT ---
EXAM DATE/TIME: 12/06/2016 12:34 [facility] COMPARISON: MRI BRAIN W/O CONTRAST, September 25, 2014, 18:36. INDICATIONS : CVA. MEDICAL HISTORY : Stroke Dementia. SURGICAL HISTORY : Hysterectomy. ENCOUNTER: Initial ACUITY: 2 day PAIN SCORE: 0/10 LOCATION: Head TECHNIQUE: Multiplanar, multisequence MRI of the brain was performed without contrast. FINDINGS: CEREBRUM: Mild cerebral atrophy is noted. No evidence of midline shift, mass lesion, hemorrhage or acute infarc tion. No extraaxial fluid collections are seen. The pituitary gland and suprasellar cistern are nor mal in configuration. WHITE MATTER: Moderate periventricular and subcortical white matter small vessel ischemic changes are noted bilater ally. POSTERIOR FOSSA: The cerebellum and brainstem are intact. The 4th ventricle is midline. The cerebellopontine angle is unremarkable. The cerebellar tonsils are normal in position. DIFFUSION IMAGING: No focal areas of restricted diffusion are seen. No evidence of acute infarction. EXTRACRANIAL: The visualized portions of the orbits are unremarkable. Mucosal thickening is noted within the right sphenoid sinus. CONCLUSION: 1. Moderate periventricular and subcortical white matter small vessel ischemic changes bilaterally. 2. Mild cerebral atrophy. 3. No acute infarct, acute hemorrhage, mass effect or extra-axial fluid collections. 4. Mucosal thickening of the right sphenoid sinus. Harshal Winters MD on December 06, 2016 at 14:29 Board Certified Radiologist. This report was verified electronically.
--- NOTE | 2016-12-06 14:49 | RADRPT ---
EXAM DATE/TIME: 12/06/2016 12:34 [facility] COMPARISON: MRA BRAIN W/O CONTRAST, September 25, 2014, 18:36. INDICATIONS : CVA. Mental status change. MEDICAL HISTORY : Stroke Dementia. Hypothyroidism. SURGICAL HISTORY : Hysterectomy. ENCOUNTER: Initial ACUITY: 2 day PAIN SCORE: 0/10 LOCATION: Head Please note a normal MRA of the brain does not entirely exclude the possibility of a small aneurysm, nor the possibility of distal intracranial vessel disease. TECHNIQUE: 3D time of flight MRA was performed. Source images, multiplanar STS MIP, and 3D volume MIP reconstru ctions were reviewed. FINDINGS: There is severe diffuse narrowing of the mid and distal portions of the posterior cerebral arteries b ilaterally. A patent left posterior left communicating artery is again noted. The basilar artery is patent without significant stenosis or occlusion. The upper most portions of the vertebral arteries are patent without significant stenosis or occlusion. The upper cervical, petrous, cavernous, and marc praclinoid internal carotid arteries are patent without significant stenosis or occlusion. The A1 an d M1 segments are patent without significant stenosis or occlusion. The anterior cerebral arteries a re patent without significant stenosis or occlusion. There is apparent diffuse narrowing of the bran ches of the left MCA trifurcation. There is no evidence of aneurysm formation. CONCLUSION: 1. Moderate to severe diffuse stenoses involving the mid and distal branches of the posterior cerebra l arteries bilaterally. 2. Moderate diffuse stenosis involving the left MCA trifurcation branches. 3. Patent left posterior communicating artery. Harshal Winters MD on December 06, 2016 at 14:34 Board Certified Radiologist. This report was verified electronically.
[2016-12-06] MEDS ORDERED: LORazepam 0.5 MG TAB PO PRN (16:15)
[2016-12-06] MEDS ORDERED: APIX5TAB PO (16:43)
--- NOTE | 2016-12-06 16:46 | HHI.FF ---
Face to Face Verification Diagnosis: (1) TIA (transient ischemic attack) (2) Impaired cognition (3) Dementia Physical Therapy Order: Evaluate and Treat, Improve ambulation, Strength and gait training Home Health Nursing Order: Medical education Nursing assessment with vital signs I have seen patient Denise Mcginnis on 12/06/16. My clinical findings support the need for the requested home health care services because: Deconditioned w/ increased weakness Impaired cognition/judgement High risk of falls I certify that my clinical findings support that this patient is homebound because: Impaired cognitive ability/safety Unsteady gait/balance Nery Watson Dec 06, 2016 16:46
[2016-12-06] MEDS ORDERED: PILL SPLITTER OTHER PRN (17:00)
--- NOTE | 2016-12-06 21:00 | EC ---
Study Study Date:12/06/2016 STUDY CONCLUSIONS SUMMARY - Left ventricle: The cavity size was normal. Wall thickness was normal. Systolic function was normal. The estimated ejection fraction was in the range of 55% to 65%. Wall motion was normal; there were no regional wall motion abnormalities. - Aortic valve: Moderate regurgitation. Valve area: 2.09cm^2(VTI). Valve area: 2.27cm^2 (Vmax). - Mitral valve: Mild regurgitation. - Tricuspid valve: Mild regurgitation. - Pulmonary arteries: PA peak pressure: 43mm Hg (S). If LV function is below 40, please consider prescribing an ACEI or ARB or document rationale for non-use. PROCEDURE DATA STUDY STATUS: Elective. Procedure: Transthoracic echocardiography. Image quality was good. Scanning was performed from the parasternal, apical, and subcostal acoustic windows. Study completion: The patient tolerated the procedure well. Transthoracic echocardiography. M-mode, complete 2D, complete spectral Doppler, and color Doppler. Height: Height: 62in. Weight: Weight: 142.7lb. Body mass index: BMI: 26.2kg/m^2. Body surface area: BSA: 1.66m^2. Patient status: Inpatient. CARDIAC ANATOMY LEFT VENTRICLE: The cavity size was normal. Wall thickness was normal. Systolic function was normal. The estimated ejection fraction was in the range of 55% to 65%. Wall motion was normal; there were no regional wall motion abnormalities. AORTIC VALVE: Trileaflet; normal thickness leaflets. Doppler: Transvalvular velocity was within the normal range. There was no stenosis. Moderate regurgitation. Valve area: 2.09cm^2(VTI). Indexed valve area: 1.26cm^2/m^2 (VTI). Valve area: 2.27cm^2 (Vmax). Indexed valve area: 1.37cm^2/m^2 (Vmax). Mean gradient: 5mm Hg (S). Peak gradient: 12mm Hg (S). AORTA: Aortic root: The aortic root was normal in size. MITRAL VALVE: Structurally normal valve. Doppler: Transvalvular velocity was within the normal range. There was no evidence for stenosis. Mild regurgitation. Peak gradient: 4mm Hg (D). LEFT ATRIUM: The atrium was normal in size. RIGHT VENTRICLE: The cavity size was normal. Wall thickness was normal. PULMONIC VALVE: Doppler: Transvalvular velocity was within the normal range. There was no evidence for stenosis. No regurgitation. TRICUSPID VALVE: Structurally normal valve. Doppler: Transvalvular velocity was within the normal range. Mild regurgitation. PULMONARY ARTERY: The main pulmonary artery was normal-sized. Systolic pressure was within the normal range. RIGHT ATRIUM: The atrium was normal in size. PERICARDIUM: There was no pericardial effusion. SYSTEMIC VEINS: Inferior vena cava: The vessel was normal in size. Patient weight: 142.7lb _Ejection fraction:_ 65-75% _Fractional shortening:_ 32% up to 5Kg 5-11.5Kg 11.6-22.9Kg 23-45Kg 45-57Kg Aortic Root 7-13 <17 13-22 17-27 17-27 LA diam 6-13 <23 24-38 33-47 37-40 RVID 10-17 7-15 7-15 7-18 8-17 LVIDd 12-22 <32 24-38 33-47 37-40 LVPW 2-4 3-6 5-7 6-8 7-8 IVS 2-4 3-6 5-7 6-8 7-8 BASIC MEASUREMENTS ADULT NORMAL Left ventricle LV internal dimension, ED, chordal 48.3 mm 43-52 level, PLAX LV internal dimension, ES, chordal 30.5 mm 23-38 level, PLAX Fractional shortening, chordal level, 37 % >29 PLAX LV posterior wall thickness, ED 7.87 mm IVS/LVPW ratio, ED 1.16 <1.3 Ventricular septum Septal thickness, ED 9.09 mm Aorta Root diameter, ED 34 mm Left atrium Anterior-posterior dimension 42 mm Anterior-posterior dimension index *2.53 cm/m^2 <2.2 BASIC MEASUREMENTS ADULT NORMAL Left atrium Anterior-posterior dimension, ES 21 mm 19-40 Anterior-posterior dimension index, ES 1.27 cm/m^2 <2.2 DOPPLER MEASUREMENTS ADULT NORMAL Main pulmonary artery Pressure, S *43 mm Hg =30 Aortic valve Peak velocity, S 172 cm/s Mean velocity, S 101 cm/s VTI, S 32.1 cm Mean gradient, S 5 mm Hg Peak gradient, S 12 mm Hg Valve area, VTI 2.09 cm^2 Valve area index, VTI 1.26 cm^2/m^2 Valve area, Vmax 2.27 cm^2 Valve area index, Vmax 1.37 cm^2/m^2 Regurgitant velocity, ED 379 cm/s Regurgitant deceleration 2930 cm/s^2 Regurgitant pressure half-time 379 ms Regurgitant gradient, ED 57 mm Hg Mitral valve Peak E-wave velocity 106 cm/s Peak A-wave velocity 42 cm/s Peak gradient, D 4 mm Hg Peak E/A ratio 2.5 Tricuspid valve Regurgitant peak velocity 311 cm/s Peak RV-RA gradient, S 39 mm Hg Maximal regurgitant velocity 311 cm/s Systemic veins Estimated CVP 5 mm Hg Right ventricle RV pressure, S *44 mm Hg <30 Pulmonic valve Peak velocity, S 57.2 cm/s LEGEND: Mean values are shown as u=mean value. Asterisk (*) pelaez values outside specified normal range. Prepared and signed by Javier Pederson [id number]
--- NOTE | 2016-12-06 22:20 | EKG ---
Date Performed: 12/05/2016 Time Performed: 20:31:24 PTAGE: 86 years EKG: UNCERTAIN REGULAR RHYTHM RIGHT BUNDLE BRANCH BLOCK ABNORMAL ECG PREVIOUS TRACING : 02/06/2015 05.00 Compared to the previous tracing, previously appears to be slow Afib, current rhythm appears more regular DOCTOR: Maycol Zhang Interpretating Date/Time 12/06/2016 22:20:29
[2016-12-07] VITALS (13 sets, daily range): BP systolic 100–150; BP diastolic 52–105; PULSE 35–88; RESP 16–20; TEMP 96.5–98.6; O2SAT 92–98
[2016-12-07] MEDS: LEVOTHYROXINE SODIUM 50 MCG TAB PO SCH (06:12)
[2016-12-07] MEDS: INSULIN ASPART SUPPLEMENTAL SCALE SQ SCH ×4 (07:00→20:12)
[2016-12-07] MEDS: SODIUM CHLORIDE 0.9% FLUSH 5 ML FLUSH IVF SCH ×2 (09:20→20:28)
[2016-12-07] MEDS: DIVALPROEX SODIUM E.R. 250 MG TAB PO SCH (09:20)
[2016-12-07] MEDS: APIXABAN 5 MG TABLET PO SCH ×2 (09:20→20:27)
--- NOTE | 2016-12-07 09:59 | HHI.PR ---
Subjective Remarks Pt had to be restrained last night but this morning is calm and answers questions fairly appropriately She is alert and oriented to self only Pt noted to be bradycardic on telemetry int he 30's overnight but family confirms this is normal for her BP is low normal this morning and family also confirms that this is typical even on her normal BP medications. Objective Vitals Vital Signs Date Time Temp Pulse Resp B/P Pulse Ox O2 Delivery O2 Flow Rate FiO2 12/07/16 09:21 109/62 12/07/16 08:10 96.5 39 17 118/57 92 12/07/16 04:45 98.6 80 20 129/61 95 12/07/16 03:14 35 12/07/16 00:52 97.6 50 20 100/54 95 12/07/16 00:21 39 12/06/16 22:27 98.0 50 20 119/58 95 12/06/16 19:35 41 18 169/72 99 Room Air 12/06/16 16:00 97.8 48 17 130/78 Room Air 2 12/06/16 13:20 97.8 56 17 158/69 98 Room Air 12/06/16 10:20 39 18 141/61 98 Nasal Cannula 2 12/06/16 12/06/16 12/07/16 15:00 23:00 07:00 Intake Total 420 ml Balance 420 ml Intake Oral 420 ml # Voids 2 # Bowel Movements 0 0 Result Diagram: 12/05/16201312/06/16 0355 Other Results Laboratory Tests Test 12/05/16 12/05/16 12/05/16 12/06/16 20:14 20:25 21:11 03:55 Prothrombin Time 11.2 SEC Prothromb Time International 1.0 RATIO Ratio Activated Partial 27.1 SEC Thromboplast Time Sodium Level 130 MEQ/L 133 MEQ/L Potassium Level 3.7 MEQ/L 4.6 MEQ/L Chloride Level 93 MEQ/L 96 MEQ/L Carbon Dioxide Level 29.2 MEQ/L 27.7 MEQ/L Anion Gap 8 MEQ/L 9 MEQ/L Blood Urea Nitrogen 13 MG/DL 9 MG/DL Creatinine 0.62 MG/DL 0.58 MG/DL Estimat Glomerular Filtration 91 ML/MIN 98 ML/MIN Rate Random Glucose 93 MG/DL 83 MG/DL Calcium Level 8.7 MG/DL 8.7 MG/DL Total Bilirubin 0.4 MG/DL 0.6 MG/DL Aspartate Amino Transf 15 U/L 30 U/L (AST/SGOT) Alanine Aminotransferase 17 U/L 18 U/L (ALT/SGPT) Alkaline Phosphatase 58 U/L 48 U/L Total Protein 6.8 GM/DL 6.6 GM/DL Albumin 3.6 GM/DL 3.3 GM/DL White Blood Count 6.2 TH/MM3 Red Blood Count 3.72 MIL/MM3 Hemoglobin 12.8 GM/DL Hematocrit 36.9 % Mean Corpuscular Volume 99.1 FL Mean Corpuscular Hemoglobin 34.5 PG Mean Corpuscular Hemoglobin 34.8 % Concent Red Cell Distribution Width 14.0 % Platelet Count 247 TH/MM3 Mean Platelet Volume 7.6 FL Neutrophils (%) (Auto) 54.7 % Lymphocytes (%) (Auto) 32.0 % Monocytes (%) (Auto) 12.0 % Eosinophils (%) (Auto) 0.7 % Basophils (%) (Auto) 0.6 % Neutrophils # (Auto) 3.4 TH/MM3 Lymphocytes # (Auto) 2.0 TH/MM3 Monocytes # (Auto) 0.7 TH/MM3 Eosinophils # (Auto) 0.0 TH/MM3 Basophils # (Auto) 0.0 TH/MM3 CBC Comment DIFF FINAL Differential Comment Blood Gas Puncture Site LT BRACHIAL Blood Gas Patient Temperature 98.6 Blood Gas HCO3 25 mmol/L Blood Gas Base Excess 1.9 mmol/L Blood Gas Oxygen Saturation 96 % Arterial Blood pH 7.47 Arterial Blood Partial 35 mmHg Pressure CO2 Arterial Blood Partial 119 mmHG Pressure O2 Arterial Blood Oxygen Content 17.2 Vol % Arterial Blood 2.1 % Carboxyhemoglobin Arterial Blood Methemoglobin 1.6 % Blood Gas Hemoglobin 12.7 G/DL Oxygen Delivery Device NASAL CANNULA Blood Gas Liter Flow 2 L/M Urine Color YELLOW Urine Turbidity HAZY Urine pH 7.0 Urine Specific [place] 1.018 Urine Protein NEG mg/dL Urine Glucose (UA) NEG mg/dL Urine Ketones NEG mg/dL Urine Occult Blood NEG Urine Nitrite NEG Urine Bilirubin NEG Urine Urobilinogen LESS THAN 2.0 MG/DL Urine Leukocyte Esterase NEG Urine RBC 5 /hpf Urine WBC 1 /hpf Microscopic Urinalysis Comment CATH-CULT NOT IND Triglycerides Level 61 MG/DL Cholesterol Level 199 MG/DL LDL Cholesterol 83 MG/DL HDL Cholesterol 103.9 MG/DL Cholesterol/HDL Ratio 1.91 RATIO Free Thyroxine 1.10 NG/DL Thyroid Stimulating Hormone 4.500 uIU/ML 3rd Gen Imaging Last Impressions Head Magnetic Resonance Angiography 12/06/16 Signed Impressions: Service Date/Time: Tuesday, December 06, 2016 12:34 - CONCLUSION: 1. Moderate to severe diffuse stenoses involving the mid and distal branches of the posterior cerebral arteries bilaterally. 2. Moderate diffuse stenosis involving the left MCA trifurcation branches. 3. Patent left posterior communicating artery. Harshal Winters MD Carotid Artery Ultrasound 12/06/16 Signed Impressions: Service Date/Time: Tuesday, December 06, 2016 09:01 - CONCLUSION: No hemodynamically significant stenosis. Harshal Winters MD Brain MRI 12/06/16 Signed Impressions: Service Date/Time: Tuesday, December 06, 2016 12:34 - CONCLUSION: 1. Moderate periventricular and subcortical white matter small vessel ischemic changes bilaterally. 2. Mild cerebral atrophy. 3. No acute infarct, acute hemorrhage , mass effect or extra-axial fluid collections. 4. Mucosal thickening of the right sphenoid sinus. Harshal Winters MD Chest X-Ray 12/05/162009 Signed Impressions: Service Date/Time: Monday, December 05, 2016 18:42 - CONCLUSION: 1. Basilar atelectasis. Cardiomegaly. Tortuous aorta. Jerad Hull MD Head CT 12/05/16 Signed Impressions: Service Date/Time: Monday, December 05, 2016 20:57 - CONCLUSION: 1. No acute intracranial abnormalities. White matter ischemic changes. Jerad Hull MD Last Impressions Carotid Artery Ultrasound 12/06/16 Signed Impressions: Service Date/Time: Tuesday, December 06, 2016 09:01 - CONCLUSION: No hemodynamically significant stenosis. Harshal Winters MD Chest X-Ray 12/05/162009 Signed Impressions: Service Date/Time: Monday, December 05, 2016 18:42 - CONCLUSION: 1. Basilar atelectasis. Cardiomegaly. Tortuous aorta. Jerad Hull MD Head CT 12/05/16 Signed Impressions: Service Date/Time: Monday, December 05, 2016 20:57 - CONCLUSION: 1. No acute intracranial abnormalities. White matter ischemic changes. Jerad Hull MD Objective Remarks General: NAD, Alert and oriented to self only Chest: Poor inspiratory effort Cardiac: Rufino, irregular Abd: +BS, soft ND/NT Ext: mild bilateral LE edema A/P Problem List: (1) Episode of change in speech Status: Acute Plan: - Pt admitted with reported altered mental status and speech change lasted partially an hour last night around 10:15 PM. - Questionable etiology. - Patient is on Eliquis but had not been on full dose reproducibly. - Head CT was negative for acute changes. - MRI Negative for an acute stroke. - MRA with moderate to severe diffuse stenoses involving the mid and distal branches of the posterior cerebral arteries bilaterally. Moderate diffuse stenosis involving the left MCA trifurcation branches. Patent left posterior communicating artery. . - Carotid US was negative for hemodynamically significant stenosis - PT/OT/ST - ? TIA but not other focal deficits. - 2D Echo (12/06) --> Estiamted EF 55-60%, moderate aortic regurg, mild mitral regurg, mild tricuspid regurg, PA pressure 43mmHg - Cont. Eliquis 5mg po BID - Spoke with the pts daughter, Tania and son-in-law, Alberto, who are the pts primary care takers. We discussed the results of her MRI/MRA and that the pt is a set up for a TIA with her noted diffuse stenosis in the posterior cerebral arteries and MCA. They confirm that the pt is a DNR. - Pt is chronically bradycardic in the 30-40's and BP is typically low-normal per the pts family. - Cont. to treat medically. - Pt planned for discharge to home with HHC/PT instead of discharge to rehab. - Plan for discharge to home later this afternoon. ADDENDUM: - Pts family contacted me later in the morning and requested evaluation with Cardiology. According to her family she had been recommended for pacemaker placement by her Shorthand Reporter, Dr. Bradford, but they had declined at that time but now would like her re-evaluated given her current situation and bradycardia. We will cancel discharge for now and consult Dr. Cramer for evaluation. (2) Impaired cognition Status: Chronic Plan: - Pt with underlying dementia. - Alert and oriented to self only - Dementia likely contributing to symptoms. - Continue to monitor. (3) Afib Status: Chronic Plan: - Rate is bradycardic chronically. - Continue Eliquis and follow as outpt. (4) Hypothyroid Status: Chronic Plan: - TSH is 4.500 - Free T4 1.10 (5) Hyponatremia Status: Chronic Plan: - Relatively stable serum sodium value. Assessment and Plan Patient examined. Assessment and plan formulated with Nery Watson PA-C. I agree with the above. Pt demented. has severe intracranial stenosis of security and compliance analyst's and mca. has chronic severe slow afib. daughter was advised to get PM in past and now wants evaluation. Pt doesn't seem to want it. Problem Qualifiers (1) Afib: Qualified Code: I48.2 - Chronic atrial fibrillation Nery Watson Dec 07, 2016 09:59 Ochoa Meier MD Dec 07, 2016 15:55
[2016-12-07] MEDS: aMILoride/HCTZ 5 MG/50 MG TAB PO SCH (11:47)
[2016-12-07] MEDS: traMADol HCL 50 MG TAB PO PRN (20:28)
[2016-12-08] VITALS (8 sets, daily range): BP systolic 96–131; BP diastolic 53–59; PULSE 37–64; RESP 16–20; TEMP 97.8–98.8; O2SAT 95–97
[2016-12-08] MEDS: LEVOTHYROXINE SODIUM 50 MCG TAB PO SCH (06:49)
[2016-12-08] MEDS: INSULIN ASPART SUPPLEMENTAL SCALE SQ SCH ×4 (06:50→20:06)
[2016-12-08] MEDS: SODIUM CHLORIDE 0.9% FLUSH 5 ML FLUSH IVF SCH ×2 (09:46→20:07)
[2016-12-08] MEDS: traMADol HCL 50 MG TAB PO SCH (09:46)
[2016-12-08] MEDS: DIVALPROEX SODIUM E.R. 250 MG TAB PO SCH (09:46)
[2016-12-08] MEDS: APIXABAN 5 MG TABLET PO SCH ×2 (09:46→20:07)
[2016-12-08] MEDS: aMILoride/HCTZ 5 MG/50 MG TAB PO SCH (09:46)
--- NOTE | 2016-12-08 10:22 | HHI.PR ---
Subjective Remarks No new issues overnight. Pt did have to be placed in restraints overnight but is out of restraints this morning. Pt eating and drinking ok She is still notably bradycardic, HR in the 30-40's Objective Vitals Vital Signs Date Time Temp Pulse Resp B/P Pulse Ox O2 Delivery O2 Flow Rate FiO2 12/08/16 08:52 95 21 12/08/16 08:19 98.2 47 16 113/57 95 12/07/16 20:40 97.8 88 20 150/89 98 12/07/16 19:31 21 12/07/16 15:00 42 12/07/16 13:55 44 145/105 12/07/16 13:54 39 136/96 12/07/16 13:48 96.9 107/52 12/07/16 11:42 97.6 38 16 136/67 96 12/07/16 12/07/16 12/08/16 15:00 23:00 07:00 Intake Total 750 ml Output Total 800 ml Balance -50 ml Intake Oral 750 ml Output Urine Total 800 ml # Voids 2 1 Result Diagram: 12/05/16201312/06/16 0355 Imaging Last Impressions Head Magnetic Resonance Angiography 12/06/16 0000 Signed Impressions: Service Date/Time: Tuesday, December 06, 2016 12:34 - CONCLUSION: 1. Moderate to severe diffuse stenoses involving the mid and distal branches of the posterior cerebral arteries bilaterally. 2. Moderate diffuse stenosis involving the left MCA trifurcation branches. 3. Patent left posterior communicating artery. Harshal Winters MD Carotid Artery Ultrasound 12/06/16 0000 Signed Impressions: Service Date/Time: Tuesday, December 06, 2016 09:01 - CONCLUSION: No hemodynamically significant stenosis. Harshal Winters MD Brain MRI 12/06/16 0000 Signed Impressions: Service Date/Time: Tuesday, December 06, 2016 12:34 - CONCLUSION: 1. Moderate periventricular and subcortical white matter small vessel ischemic changes bilaterally. 2. Mild cerebral atrophy. 3. No acute infarct, acute hemorrhage , mass effect or extra-axial fluid collections. 4. Mucosal thickening of the right sphenoid sinus. Harshal Winters MD Chest X-Ray 12/05/162009 Signed Impressions: Service Date/Time: Monday, December 05, 2016 18:42 - CONCLUSION: 1. Basilar atelectasis. Cardiomegaly. Tortuous aorta. Jerad Hull MD Head CT 12/05/16 0000 Signed Impressions: Service Date/Time: Monday, December 05, 2016 20:57 - CONCLUSION: 1. No acute intracranial abnormalities. White matter ischemic changes. Jerad Hull MD Last Impressions Carotid Artery Ultrasound 12/06/16 Signed Impressions: Service Date/Time: Tuesday, December 06, 2016 09:01 - CONCLUSION: No hemodynamically significant stenosis. Harshal Winters MD Chest X-Ray 12/05/162009 Signed Impressions: Service Date/Time: Monday, December 05, 2016 18:42 - CONCLUSION: 1. Basilar atelectasis. Cardiomegaly. Tortuous aorta. Jerad Hull MD Head CT 12/05/16 0000 Signed Impressions: Service Date/Time: Monday, December 05, 2016 20:57 - CONCLUSION: 1. No acute intracranial abnormalities. White matter ischemic changes. Jerad Hull MD Objective Remarks General: NAD, Alert and oriented to self only Chest: Poor inspiratory effort Cardiac: Rufino, irregular Abd: +BS, soft ND/NT Ext: mild bilateral LE edema A/P Problem List: (1) Episode of change in speech Status: Acute Plan: - Pt admitted with reported altered mental status and speech change lasted partially an hour last night around 10:15 PM. - Questionable etiology. - Patient is on Eliquis but had not been on full dose reproducibly. - Head CT was negative for acute changes. - MRI Negative for an acute stroke. - MRA with moderate to severe diffuse stenoses involving the mid and distal branches of the posterior cerebral arteries bilaterally. Moderate diffuse stenosis involving the left MCA trifurcation branches. Patent left posterior communicating artery. . - Carotid US was negative for hemodynamically significant stenosis - PT/OT/ST - ? TIA but not other focal deficits. - 2D Echo (12/06) --> Estiamted EF 55-60%, moderate aortic regurg, mild mitral regurg, mild tricuspid regurg, PA pressure 43mmHg - Cont. Eliquis 5mg po BID - Spoke with the pts daughter, Tania and son-in-law, Alberto, who are the pts primary care takers. We discussed the results of her MRI/MRA and that the pt is a set up for a TIA with her noted diffuse stenosis in the posterior cerebral arteries and MCA. They confirm that the pt is a DNR. - Pt is chronically bradycardic in the 30-40's and BP is typically low-normal per the pts family. - Cont. to treat medically. - Pt planned for discharge to home with HHC/PT instead of discharge to rehab. - Pts family requested evaluation with Cardiology. According to her family she had been recommended for pacemaker placement by her Biology Instructor, Dr. Bradford, previously but they had declined at that time but now would like her re-evaluated given her current situation and bradycardia. (2) Impaired cognition Status: Chronic Plan: - Pt with underlying dementia. - Alert and oriented to self only - Dementia likely contributing to symptoms. - Continue to monitor. - Pts family requested that she have her Tramadol scheduled at least once per day as the pt will not likely request it as an needed (3) Afib Status: Chronic Plan: - Rate is bradycardic chronically. - Continue Eliquis and follow as outpt. - Await cardiology consultation regarding need for possible pacemaker (4) Hypothyroid Status: Chronic Plan: - TSH is 4.500 - Free T4 1.10 (5) Hyponatremia Status: Chronic Plan: - Relatively stable serum sodium value. - Pts family has requested her diet be changed to regular with no sodium restriction Assessment and Plan Patient examined. Assessment and plan formulated with Nery Watson PA-C. I agree with the above. family wants cardiology eval for pm. awaiting evaluation. Problem Qualifiers (1) Afib: Qualified Code: I48.2 - Chronic atrial fibrillation Nery Watson Dec 08, 2016 10:22 Ochoa Meier MD Dec 08, 2016 12:52
[2016-12-08] MEDS: traMADol HCL 50 MG TAB PO PRN (18:14)
[2016-12-09] MEDS: traMADol HCL 50 MG TAB PO PRN ×2 (03:04→17:44)
[2016-12-09 04:00] VITALS: BP 118/63; PULSE 48; RESP 20; TEMP 98.3; O2SAT 95
[2016-12-09] MEDS: INSULIN ASPART SUPPLEMENTAL SCALE SQ SCH ×4 (05:43→20:39)
[2016-12-09] MEDS: LEVOTHYROXINE SODIUM 50 MCG TAB PO SCH (06:04)
[2016-12-09 08:00] VITALS: BP 118/51; PULSE 94; RESP 16; TEMP 96; O2SAT 94
[2016-12-09] MEDS: aMILoride/HCTZ 5 MG/50 MG TAB PO SCH (09:00)
[2016-12-09] MEDS: APIXABAN 5 MG TABLET PO SCH ×2 (09:20→20:36)
[2016-12-09] MEDS: DIVALPROEX SODIUM E.R. 250 MG TAB PO SCH (09:20)
[2016-12-09] MEDS: traMADol HCL 50 MG TAB PO SCH (09:20)
[2016-12-09] MEDS: SODIUM CHLORIDE 0.9% FLUSH 5 ML FLUSH IVF SCH ×2 (09:20→20:39)
[2016-12-09 11:58] VITALS: BP 118/64; PULSE 52; RESP 16; TEMP 97.8; O2SAT 94
--- NOTE | 2016-12-09 12:28 | HHI.PR ---
Subjective Remarks pt has been awaiting cardiology consultation for a few days. daughter insisting on eval for pm Objective Vitals nad more comfortable pleasantly demented heart irreg lung cta abd s/nt ext no edema Vital Signs Date Time Temp Pulse Resp B/P Pulse Ox O2 Delivery O2 Flow Rate FiO2 12/09/16 11:58 97.8 52 16 118/64 94 12/09/16 10:20 18 12/09/16 08:00 96.0 94 16 118/51 94 12/09/16 04:00 98.3 48 20 118/63 95 12/08/16 22:01 98.8 48 16 115/58 96 12/08/16 20:19 60 12/08/16 19:34 97.8 64 20 131/59 97 12/08/16 17:52 98.2 48 16 116/59 97 12/08/16 14:14 97.8 55 20 96/53 95 12/08/16 12/08/16 12/09/16 15:00 23:00 07:00 Intake Total 150 ml Balance 150 ml Intake Oral 150 ml # Voids 1 1 # Bowel Movements 0 Result Diagram: 12/05/16201312/06/16 0355 Imaging Last Impressions Head Magnetic Resonance Angiography 12/06/16 0000 Signed Impressions: Service Date/Time: Tuesday, December 06, 2016 12:34 - CONCLUSION: 1. Moderate to severe diffuse stenoses involving the mid and distal branches of the posterior cerebral arteries bilaterally. 2. Moderate diffuse stenosis involving the left MCA trifurcation branches. 3. Patent left posterior communicating artery. Harshal Winters MD Carotid Artery Ultrasound 12/06/16 0000 Signed Impressions: Service Date/Time: Tuesday, December 06, 2016 09:01 - CONCLUSION: No hemodynamically significant stenosis. Harshal Winters MD Brain MRI 12/06/16 0000 Signed Impressions: Service Date/Time: Tuesday, December 06, 2016 12:34 - CONCLUSION: 1. Moderate periventricular and subcortical white matter small vessel ischemic changes bilaterally. 2. Mild cerebral atrophy. 3. No acute infarct, acute hemorrhage , mass effect or extra-axial fluid collections. 4. Mucosal thickening of the right sphenoid sinus. Harshal Winters MD Chest X-Ray 12/05/162009 Signed Impressions: Service Date/Time: Monday, December 05, 2016 18:42 - CONCLUSION: 1. Basilar atelectasis. Cardiomegaly. Tortuous aorta. Jerad Hull MD Head CT 12/05/16 0000 Signed Impressions: Service Date/Time: Monday, December 05, 2016 20:57 - CONCLUSION: 1. No acute intracranial abnormalities. White matter ischemic changes. Jerad Hull MD Last Impressions Carotid Artery Ultrasound 12/06/16 Signed Impressions: Service Date/Time: Tuesday, December 06, 2016 09:01 - CONCLUSION: No hemodynamically significant stenosis. Harshal Winters MD Chest X-Ray 12/05/162009 Signed Impressions: Service Date/Time: Monday, December 05, 2016 18:42 - CONCLUSION: 1. Basilar atelectasis. Cardiomegaly. Tortuous aorta. Jerad Hull MD Head CT 12/05/16 0000 Signed Impressions: Service Date/Time: Monday, December 05, 2016 20:57 - CONCLUSION: 1. No acute intracranial abnormalities. White matter ischemic changes. Jerad Hull MD A/P Problem List: (1) Episode of change in speech Status: Acute Plan: - Pt admitted with reported altered mental status and speech change and tia was questioned. She has significant stenosis of bilateral CERTIFIED ADDICTION COUNSELOR and left MCA. No cva changes noted acutely on mri. Pt has severe slow afib but this seems chronic. - Head CT was negative for acute changes. - MRI Negative for an acute stroke. - MRA with moderate to severe diffuse stenoses involving the mid and distal branches of the posterior cerebral arteries bilaterally. Moderate diffuse stenosis involving the left MCA trifurcation branches. Patent left posterior communicating artery. . - Carotid US was negative for hemodynamically significant stenosis - 2D Echo (12/06) --> Estiamted EF 55-60%, moderate aortic regurg, mild mitral regurg, mild tricuspid regurg, PA pressure 43mmHg - Spoke with the pts daughter, Tania and son-in-law, Alberto, who are the pts primary care takers. We discussed the results of her MRI/MRA and that the pt is a set up for a TIA with her noted diffuse stenosis in the posterior cerebral arteries and MCA. They confirm that the pt is a DNR. - Pt is chronically bradycardic in the 30-40's and BP is typically low-normal per the pts family. - Pts family requested evaluation with Cardiology. According to her family she had been recommended for pacemaker placement by her Office Specialist, Dr. Bradford, previously but they had declined at that time but now would like her re-evaluated given her current situation and bradycardia. - PT/OT/ST- -Cont. Eliquis 5mg po BID -await cardiology eval. (2) Impaired cognition Status: Chronic Plan: - Pt with underlying dementia. - Alert and oriented to self only - Dementia likely contributing to symptoms. - Continue to monitor. - Pts family requested that she have her Tramadol scheduled at least once per day as the pt will not likely request it as an needed (3) Afib Status: Chronic Plan: - Rate is bradycardic chronically. - Continue Eliquis and follow as outpt. - Await cardiology consultation regarding need for possible pacemaker (4) Hypothyroid Status: Chronic Plan: - TSH is 4.500 - Free T4 1.10 (5) Hyponatremia Status: Chronic Plan: - Relatively stable serum sodium value. - Pts family has requested her diet be changed to regular with no sodium restriction Problem Qualifiers (1) Afib: Qualified Code: I48.2 - Chronic atrial fibrillation Ochoa Meier MD Dec 09, 2016 12:28
[2016-12-09 16:00] VITALS: BP 128/58; PULSE 56; RESP 16; TEMP 98.1; O2SAT 96
--- NOTE | 2016-12-09 17:23 | MB ---
cc: LETY RIVERA MD DATE OF CONSULTATION 12/09/16 REASON FOR CONSULTATION Bradycardia and possible indication for pacemaker. HISTORY OF PRESENT ILLNESS The patient is an 86-year-old woman with significant dementia who was brought by her daughter for altered mental status including dysarthria. Of note, the patient has a history of atrial fibrillation and maintained on Eliquis but apparently she was not getting her full dose due to bleeding hemorrhoids. Currently, the patient is comfortable in bed, however, she is oriented only to person. She believes she was brought by her mother and the year is 1986. She does appear quite comfortable and denies any symptoms such as chest pain, shortness of breath, lightheadedness, dizziness. PAST MEDICAL HISTORY 1. Atrial fibrillation with slow ventricular response maintained on Eliquis (although apparently has not been getting consistently). 2. CVA 3. Bradycardic 4. Hypertensive 5. Hypothyroidism, 6. Dementia 7. Seizure. MEDICATIONS Current, 1. Amiloride 2. Hydrochlorothiazide. 3. Ultram 4. Eliquis 5 mg b.i.d. ALLERGIES CODEINE LASIX TYLENOL III. PHYSICAL EXAMINATION VITAL SIGNS: Afebrile, pulse 62, respiratory rate 60, BP 118/64 satting 94% on 2 liters. GENERAL: Very pleasant though clearly suffering from the events dementia. NECK: No JVD. LUNGS: Clear to auscultation bilaterally. CARDIOVASCULAR: Irregularly irregular rhythm with a bradycardiac rate. No significant murmurs appreciated. ABDOMEN: Benign. EXTREMITIES: No edema. LABORATORY DATA White count 6.2, hematocrit 36.9, platelets 247, sodium 133, potassium 4.6, chloride 96, bicarb 27.7, BUN nine, creatinine 0.58, glucose 83. CARDIOLOGY STUDIES EKG WAS read as slow atrial fibrillation which is consistent with current telemetry. IMPRESSION 1. TIA. The patient's speech apparently is back to its baseline given no current dysarthria. She should absolutely be on full dose Eliquis given the above and her very high risk for recurrent stroke. 2. With regard to her bradycardia, it does not appear that she is particularly symptomatic from it and it is difficult to imagine her tolerating a pacemaker placement well with her dementia. However, I will leave the ultimate decision regarding the placement of pacemaker to her primary group manager, Dr. Bradford. I will be available as needed tomorrow. Dr. Bradford will return Sunday. Thank you again for the opportunity to participate in this patient's care. MD GUZMAN Johnson/ /2:44 PM /5:13 PM
[2016-12-09 20:00] VITALS: BP 130/71; PULSE 67; RESP 18; TEMP 98.3; O2SAT 94
[2016-12-10] VITALS: BP 107/61; PULSE 53; RESP 17; TEMP 98.7; O2SAT 97
[2016-12-10 04:00] VITALS: BP_SYST 117; BP_SYST 93; BP_DIAS 42; BP_DIAS 53; PULSE 46; PULSE 76; RESP 16; TEMP 97.7; TEMP 98.1; O2SAT 94; O2SAT 96
[2016-12-10] MEDS: INSULIN ASPART SUPPLEMENTAL SCALE SQ SCH ×2 (05:17→11:00)
[2016-12-10] MEDS: LEVOTHYROXINE SODIUM 50 MCG TAB PO SCH (06:29)
[2016-12-10 07:30] VITALS: BP 99/58; PULSE 40; RESP 15; TEMP 97.1; O2SAT 96
[2016-12-10] MEDS: aMILoride/HCTZ 5 MG/50 MG TAB PO SCH (08:19)
[2016-12-10] MEDS: DIVALPROEX SODIUM E.R. 250 MG TAB PO SCH (08:22)
[2016-12-10] MEDS: APIXABAN 5 MG TABLET PO SCH (08:22)
[2016-12-10] MEDS: traMADol HCL 50 MG TAB PO SCH ×2 (08:23→15:44)
[2016-12-10] MEDS: SODIUM CHLORIDE 0.9% FLUSH 5 ML FLUSH IVF SCH (08:23)
--- NOTE | 2016-12-10 11:12 | HHI.DCPOC ---
Discharge Care Plan Diagnosis: (1) Afib (2) Bradycardia (3) Cerebral vascular disease Goals to Promote Your Health * To prevent worsening of your condition and complications * To maintain your health at the optimal level Directions to Meet Your Goals Take your medications as prescribed Follow your dietary instruction Follow activity as directed Keep your appointments as scheduled Take your immunizations and boosters as scheduled If your symptoms worsen call your PCP, if no PCP go to Urgent Care Center or Emergency Room Smoking is Dangerous to Your Health. Avoid second hand smoke Call the 24-hour hour crisis hotline for domestic abuse at Ochoa Meier MD Dec 10, 2016 11:12
--- NOTE | 2016-12-10 11:14 | HHI.PR ---
Subjective Remarks pt doesnt want pm. wants to go home. Objective Vitals heart irreg lung cta abd s/nt ext no edema pleasant Vital Signs Date Time Temp Pulse Resp B/P Pulse Ox O2 Delivery O2 Flow Rate FiO2 12/10/16 09:23 18 12/10/16 07:30 97.1 40 15 99/58 96 12/10/16 04:00 97.7 46 16 117/53 96 12/10/16 00:00 98.7 53 17 107/61 97 12/09/16 20:00 98.3 67 18 130/71 94 12/09/16 18:39 18 12/09/16 16:00 98.1 56 16 128/58 96 12/09/16 11:58 97.8 52 16 118/64 94 12/09/16 12/09/16 12/10/16 15:00 23:00 07:00 Intake Total 1200 ml 600 ml Balance 1200 ml 600 ml Intake Oral 1200 ml 600 ml # Voids 3 3 # Bowel Movements 0 Result Diagram: 12/05/16201312/06/16 0355 Imaging Last Impressions Head Magnetic Resonance Angiography 12/06/16 0000 Signed Impressions: Service Date/Time: Tuesday, December 06, 2016 12:34 - CONCLUSION: 1. Moderate to severe diffuse stenoses involving the mid and distal branches of the posterior cerebral arteries bilaterally. 2. Moderate diffuse stenosis involving the left MCA trifurcation branches. 3. Patent left posterior communicating artery. Harshal Winters MD Carotid Artery Ultrasound 12/06/16 0000 Signed Impressions: Service Date/Time: Tuesday, December 06, 2016 09:01 - CONCLUSION: No hemodynamically significant stenosis. Harshal Winters MD Brain MRI 12/06/16 0000 Signed Impressions: Service Date/Time: Tuesday, December 06, 2016 12:34 - CONCLUSION: 1. Moderate periventricular and subcortical white matter small vessel ischemic changes bilaterally. 2. Mild cerebral atrophy. 3. No acute infarct, acute hemorrhage , mass effect or extra-axial fluid collections. 4. Mucosal thickening of the right sphenoid sinus. Harshal Winters MD Chest X-Ray 12/05/162009 Signed Impressions: Service Date/Time: Monday, December 05, 2016 18:42 - CONCLUSION: 1. Basilar atelectasis. Cardiomegaly. Tortuous aorta. Jerad Hull MD Head CT 12/05/16 Signed Impressions: Service Date/Time: Monday, December 05, 2016 20:57 - CONCLUSION: 1. No acute intracranial abnormalities. White matter ischemic changes. Jerad Hull MD Last Impressions Carotid Artery Ultrasound 12/06/16 Signed Impressions: Service Date/Time: Tuesday, December 06, 2016 09:01 - CONCLUSION: No hemodynamically significant stenosis. Harshal Winters MD Chest X-Ray 12/05/162009 Signed Impressions: Service Date/Time: Monday, December 05, 2016 18:42 - CONCLUSION: 1. Basilar atelectasis. Cardiomegaly. Tortuous aorta. Jerad Hull MD Head CT 12/05/16 Signed Impressions: Service Date/Time: Monday, December 05, 2016 20:57 - CONCLUSION: 1. No acute intracranial abnormalities. White matter ischemic changes. Jerad Hull MD A/P Problem List: (1) Episode of change in speech Status: Acute Plan: - Pt admitted with reported altered mental status and speech change and tia was questioned. She has significant stenosis of bilateral [employer] and left MCA. No cva changes noted acutely on mri. Pt has severe slow afib but this seems chronic. - Head CT was negative for acute changes. - MRI Negative for an acute stroke. - MRA with moderate to severe diffuse stenoses involving the mid and distal branches of the posterior cerebral arteries bilaterally. Moderate diffuse stenosis involving the left MCA trifurcation branches. Patent left posterior communicating artery. . - Carotid US was negative for hemodynamically significant stenosis - 2D Echo (12/06) --> Estiamted EF 55-60%, moderate aortic regurg, mild mitral regurg, mild tricuspid regurg, PA pressure 43mmHg - Spoke with the pts daughter, Tania and son-in-law, Alberto, who are the pts primary care takers. We discussed the results of her MRI/MRA and that the pt is a set up for a TIA with her noted diffuse stenosis in the posterior cerebral arteries and MCA. They confirm that the pt is a DNR. - Pt is chronically bradycardic in the 30-40's and BP is typically low-normal per the pts family. - Pts family requested evaluation with Cardiology. According to her family she had been recommended for pacemaker placement by her [employer] Work[employer], Dr. Bradfrod, previously but they had declined at that time but now would like her re-evaluated given her current situation and bradycardia. - PT/OT/ST- -Cont. Eliquis 5mg po BID -discussed with cardiology. no PM recommended. d/c home and f/u. (2) Cerebral vascular disease Status: Acute Plan: see above (3) Impaired cognition Status: Chronic Plan: - Pt with underlying dementia. - Alert and oriented to self only - Dementia likely contributing to symptoms. - Continue to monitor. - Pts family requested that she have her Tramadol scheduled at least once per day as the pt will not likely request it as an needed (4) Afib Status: Chronic Plan: - Rate is bradycardic chronically. - Continue Eliquis and follow as outpt. - Await cardiology consultation regarding need for possible pacemaker (5) Hypothyroid Status: Chronic Plan: - TSH is 4.500 - Free T4 1.10 (6) Hyponatremia Status: Chronic Plan: - Relatively stable serum sodium value. - Pts family has requested her diet be changed to regular with no sodium restriction Problem Qualifiers (1) Afib: Qualified Code: I48.2 - Chronic atrial fibrillation Ochoa Meier MD Dec 10, 2016 11:14
[2016-12-10 11:42] VITALS: BP 122/60; PULSE 45; RESP 16; TEMP 97.7; O2SAT 96
== END 2016-12-10 16:18 | disposition home health service (06) | DRG 68 ==
LOC: NEPC 16:34 → NEDA 22:14 → NEDH 12-06 02:14 → NEDA 12-06 13:21 → NEPGCP 12-06 20:39 → OBSVTOIN 12-08 10:18 → N06A 12-08 21:58
PROVIDERS: ADMIT Hospitalist; ATTEND Hospitalist
DX: I66.23 Occlusion and stenosis of bilateral posterior cerebral arteries (principal); I66.02 Occlusion and stenosis of left middle cerebral artery; I48.2 Chronic atrial fibrillation; F03.90 Unspecified dementia, unspecified severity, without behavioral disturbance, psychotic disturbance, mood disturbance, and anxiety; E87.1 Hypo-osmolality and hyponatremia; R00.1 Bradycardia, unspecified; I08.3 Combined rheumatic disorders of mitral, aortic and tricuspid valves; Z66 Do not resuscitate; E03.9 Hypothyroidism, unspecified; Z79.02 Long term (current) use of antithrombotics/antiplatelets; Z91.128 Patient's intentional underdosing of medication regimen for other reason; Z86.73 Personal history of transient ischemic attack (TIA), and cerebral infarction without residual deficits; K64.9 Unspecified hemorrhoids; I10 Essential (primary) hypertension; M17.0 Bilateral primary osteoarthritis of knee; E78.00 Pure hypercholesterolemia, unspecified; Z78.1 Physical restraint status
CPT/HCPCS: 36600; 70450; 70544; 70551; 71010; 80053; 80061; 81001; 82805; 82948; 84439; 84443; 85025; 85610; 85730; 93005; 93306; 93880; G0378; G8987-GO; G8987-GP; G8988-GO; G8988-GP; G8996-GN; G8997-GN; G8998-GN

== ENCOUNTER 2017-08-28 15:26 | Emergency (ER) | payer MEDICARE ==
[~2017-08-28] VITALS: Ht 157.5 cm; Wt 66.0 kg
[~2017-08-28 15:26] MED LIST changes: -APIX2.5 PO; +APIX5TAB PO; -DIVA250ER PO; +DIVA250T3 PO; +MODU550 PO; +TRAM50TA PO; -ULTR50TA PO; -[UNRECOGNIZED DRUG - CODE] PO
[2017-08-28 15:28] VITALS: BP 129/59; PULSE 53; RESP 16; TEMP 98; O2SAT 95
--- NOTE | 2017-08-28 15:54 | PD ---
Physical Exam Date Seen by Provider: Aug 28, 2017 Time Seen by Provider: 15:51 Narrative 87-year-old white female presents to the department by POV accompanied by her daughter for right upper arm pain after a slip and fall. Her daughter states that she had caught her arm in a chair when she fell to the ground. She is complaining of pain and swelling to the right upper arm. Moderate in intensity. Worse with movement. No injury to her head, neck or back. No numbness or tingling. She just had right cataract surgery yesterday . Vital signs reviewed. Pt waiting for bed placement. Data Data Last Documented VS Vital Signs Date Time Temp Pulse Resp B/P (MAP) Pulse Ox O2 Delivery O2 Flow Rate FiO2 08/28/17 15:28 98.0 53 16 129/59 (82) 95 Room Air [facility] Medical Record Reviewed: No Supervised Visit with GRZEGORZ: Jerad Walker Aug 28, 2017 15:54
[2017-08-28] MEDS ORDERED: APIX2.5T PO (17:01)
--- NOTE | 2017-08-28 17:11 | RADRPT ---
EXAM DATE/TIME: 08/28/2017 16:03 [facility] COMPARISON: No previous studies available for comparison. INDICATIONS : Fall 1 day ago landed on right shoulder. MEDICAL HISTORY : None. SURGICAL HISTORY : None. ENCOUNTER: Initial ACUITY: 1 day PAIN SCORE: 10/10 LOCATION: Right shoudler FINDINGS: There is a displaced fracture of the surgical neck of the proximal humerus with greater than one shaf t width lateral displacement of the humeral head with respect to the shaft. There is combination wit h a fragment arising from the lesser tuberosity. The a.c. joint appears grossly intact. The shaft o f the humerus is intact. CONCLUSION: Comminuted and displaced fractures of the surgical neck and lesser tuberosity of the humerus. Lex Stone MD on August 28, 2017 at 17:08 Board Certified Radiologist. This report was verified electronically.
--- NOTE | 2017-08-28 17:16 | PD ---
HPI Chief Complaint: Fall Time Seen by Provider: 17:04 Travel History International Travel<30 days: No Contact w/Intl Traveler<30days: No Traveled to known affect area: No History of Present Illness HPI Send 87-year-old woman who presents to the emergency department after slip and fall. She was walking up stairs. She just had cataract surgery. She fell onto the chair that was on her right side. He has pain ecchymosis and bruising to the right proximal arm. Otherwise has been feeling generally well. History Past Medical History Narrative Medical Dementia CHF History of CVA/vascular dementia, on Eliquis Hypertension and hypothyroidism History of one seizure in the past, on Depakote. Social History Alcohol Use: No Tobacco Use: No Allergies-Medications (Allergen,Severity, Reaction): Coded Allergies: acetaminophen (Unverified Allergy, Unknown, CONFUSION, 06/12/17) codeine (Unverified Allergy, Unknown, CONFUSION, 06/12/17) CONFUSION furosemide (Unverified Allergy, Unknown, SWELLING, HIVES, 06/12/17) Reported Meds & Prescriptions Reported Meds & Active Scripts Active Reported Eliquis (Apixaban) 2.5 Mg Tab 2.5 Mg PO BID Amiloride-Hydrochlorothiazide (Amiloride/HCTZ) 5-50 Mg Tab 1 Tab PO DAILY Give with food. Tramadol (Tramadol HCl) 50 Mg Tab 50 Mg PO Q4H PRN Levothyroxine (Levothyroxine Sodium) 50 Mcg Tab 50 Mcg PO DAILY Divalproex ER (Divalproex Sodium) 250 Mg Mirza 250 Mg PO DAILY Review of Systems Except as stated in HPI: all other systems reviewed are Neg Physical Exam Narrative GENERAL: Well-appearing 87 year-old woman, alert and questions but no acute distress. SKIN: Focused skin assessment warm/dry. HEAD: No bruising or evidence of trauma. EYES: Pupils equal and round. No scleral icterus. No injection or drainage. ENT: No nasal bleeding or discharge. Mucous membranes pink and moist. NECK: Moves neck freely. No tenderness step-offs or deformities. CARDIOVASCULAR: Regular rate and rhythm. No murmur appreciated. RESPIRATORY: No accessory muscle use. Clear to auscultation. Breath sounds equal bilaterally. GASTROINTESTINAL: Abdomen soft, non-tender, nondistended. Hepatic and splenic margins not palpable. MUSCULOSKELETAL: Ecchymosis bruising and swelling to the proximal brachium. No tenderness in the elbow. Moves elbow freely. Internal/external rotation of the shoulder elicits pain. NEUROLOGICAL: Awake and alert. Slightly confused. No obvious cranial nerve deficits. Motor grossly within normal limits. Normal speech. Data Data Last Documented VS Vital Signs Date Time Temp Pulse Resp B/P (MAP) Pulse Ox O2 Delivery O2 Flow Rate FiO2 08/28/17 15:28 98.0 53 16 129/59 (82) 95 Room Air Orders Orders Humerus (Min 2vws) (08/28/17 15:54) Ice/Cold Pack (08/28/17 15:54) MDM Medical Decision Making Medical Screen Exam Complete: Yes Emergency Medical Condition: Yes Interpretation(s) My review chest x-ray: Displaced proximal humerus fracture. Differential Diagnosis Humerus fracture, contusion, dislocation, other Narrative Course Medical decision-making 87-year-old woman with right shoulder pain after fall. She has a proximal humerus fracture. She'll need outpatient follow-up with orthopedics. I spoke with Dr. Roche. We'll discuss with family at the bedside. Patient would benefit from home health. Discussed admission for observation but family would rather try home health at home. I think this is reasonable. Referrals: Cameron oNlen Jr., MD 1 week Additional Instructions: Continue tramadol and acetaminophen as needed for pain. Use sling as needed for comfort. Use caution to prevent falls. Follow-up with Dr. Roche in 7-10 days. Return to the emergency department for any new or worsening symptoms. Med/Other Pt SpecificInfo: No Change to Meds Disposition: 01 DISCHARGE HOME Condition: Stable Favio Rodríguez MD Aug 28, 2017 17:16
--- NOTE | 2017-08-28 17:25 | HHI.FF ---
Face to Face Verification Diagnosis: (1) Fracture of humerus, right, closed (2) Impaired gait Physical Therapy Order: Evaluate and Treat, Improve ambulation, Strength and gait training Home Health Nursing Order: Medical education Medication education-adverse effect Nursing assessment with vital signs Home Health Aide Order: To Assist In: Bathing and personal care I have seen patient Denise Mcginnis on 08/28/17. My clinical findings support the need for the requested home health care services because: Ltd mobility - disease progression Limited ability to care for self Impaired cognition/judgement High risk of falls I certify that my clinical findings support that this patient is homebound because: Unsteady gait/balance Unsafe to leave home unassisted Favio Rodríguez MD Aug 28, 2017 17:25
--- NOTE | 2017-08-28 18:11 | PD ---
Data Data Last Documented VS Vital Signs Date Time Temp Pulse Resp B/P (MAP) Pulse Ox O2 Delivery O2 Flow Rate FiO2 08/28/17 15:28 98.0 53 16 129/59 (82) 95 Room Air Orders Orders Humerus (Min 2vws) (08/28/17 15:54) Ice/Cold Pack (08/28/17 15:54) Ed Discharge Order (08/28/17 17:25) MDM Supervised Visit with GRZEGORZ: Yes Diagnosis Primary Impression: Fracture of humerus, right, closed Referrals: Cameron Nolen Jr., MD 1 week Patient Instructions: General Instructions Departure Forms: Tests/Procedures Additional Instruction: Continue tramadol and acetaminophen as needed for pain. Use sling as needed for comfort. Use caution to prevent falls. Follow-up with Dr. Roche in 7-10 days. Return to the emergency department for any new or worsening symptoms. Disposition: 01 DISCHARGE HOME Condition: Stable Favio Rodríguez MD Aug 28, 2017 18:11
== END 2017-08-28 18:58 | disposition home or self-care (01) ==
LOC: NEPC 15:26
DX: S42.211A Unspecified displaced fracture of surgical neck of right humerus, initial encounter for closed fracture (principal); S42.261A Displaced fracture of lesser tuberosity of right humerus, initial encounter for closed fracture; W10.9XXA Fall (on) (from) unspecified stairs and steps, initial encounter; Y93.01 Activity, walking, marching and hiking
CPT/HCPCS: 29240; 73060

== ENCOUNTER 2017-09-21 09:14 | Inpatient (IN) | payer MEDICARE ==
[~2017-09-21] VITALS: Ht 162.6 cm; Wt 70.0 kg
[~2017-09-21 09:14] MED LIST changes: +APIX2.5T PO; -APIX5TAB PO
[2017-09-21 09:16] VITALS: BP 142/39; PULSE 40; RESP 14; TEMP 97.8; O2SAT 99
[2017-09-21] MEDS ORDERED: SPIR25TA PO (09:34)
--- NOTE | 2017-09-21 11:01 | PD ---
HPI Chief Complaint: Injury Time Seen by Provider: 09:27 Travel History International Travel<30 days: No Contact w/Intl Traveler<30days: No Traveled to known affect area: No History of Present Illness HPI Send 87-year-old woman who presents to the emergency department complaining of ongoing right shoulder pain and right arm pain. She fell on August 28. She's been following with Dr. Roche. Despite this she's had worsening pain swelling and poor function. She saw Dr. Roche the office this week and instructed her that if she had worsening pain to come to the emergency department. She is a history of vascular dementia and is normally on Eliquis however she's been holding this since her fall as she had cataract surgery just prior to that. She has not taken it for about a month. History Past Medical History Narrative Medical Dementia CHF History of CVA/vascular dementia, on Eliquis Hypertension and hypothyroidism History of one seizure in the past, on Depakote. Social History Alcohol Use: No Tobacco Use: No Allergies-Medications (Allergen,Severity, Reaction): Coded Allergies: acetaminophen (Unverified Allergy, Unknown, CONFUSION, 09/21/17) codeine (Unverified Allergy, Unknown, CONFUSION, 09/21/17) CONFUSION furosemide (Unverified Allergy, Unknown, SWELLING, HIVES, 09/21/17) Reported Meds & Prescriptions Reported Meds & Active Scripts Active Reported Spironolactone 25 Mg Tab 12.5 Mg PO DAILY Eliquis (Apixaban) 2.5 Mg Tab 2.5 Mg PO BID Amiloride-Hydrochlorothiazide (Amiloride/HCTZ) 5-50 Mg Tab 1 Tab PO DAILY Give with food. Tramadol (Tramadol HCl) 50 Mg Tab 50 Mg PO Q4H PRN Levothyroxine (Levothyroxine Sodium) 50 Mcg Tab 50 Mcg PO DAILY Divalproex ER (Divalproex Sodium) 250 Mg Mirza 250 Mg PO DAILY Review of Systems Except as stated in HPI: all other systems reviewed are Neg Physical Exam Narrative GENERAL: 87 year-old woman, uncomfortable, nontoxic. SKIN: Focused skin assessment warm/dry. ENT: No nasal bleeding or discharge. Mucous membranes pink and moist. NECK: Trachea midline. No JVD. CARDIOVASCULAR: Heart rates markedly slow. RESPIRATORY: No accessory muscle use. Clear to auscultation. Breath sounds equal bilaterally. GASTROINTESTINAL: Abdomen soft, non-tender, nondistended. Hepatic and splenic margins not palpable. MUSCULOSKELETAL: Still with significant deformity to the proximal right humerus. Ecchymosis swelling and edema in the brachium and the elbow. Distally she is neurovascularly intact with intact radial/ulnar/median nerve function. NEUROLOGICAL: Awake and alert. No obvious cranial nerve deficits. Motor grossly within normal limits. Normal speech. PSYCHIATRIC: Appropriate mood and affect; insight and judgment normal. Data Data Last Documented VS Vital Signs Date Time Temp Pulse Resp B/P (MAP) Pulse Ox O2 Delivery O2 Flow Rate FiO2 09/21/17 09:16 97.8 40 14 142/39 (73) 99 Orders Orders Complete Blood Count With Diff (09/21/17 10:39) Comprehensive Metabolic Panel (09/21/17 10:39) Urinalysis - C+S If Indicated (09/21/17 10:39) Iv Access Insert/Monitor (09/21/17 10:39) Electrocardiogram (09/21/17 ) Chest, Single Ap (09/21/17 ) MDM Medical Decision Making Medical Screen Exam Complete: Yes Emergency Medical Condition: Yes Interpretation(s) My review of EKG: Significant bradycardia, regular, normal axis, right bundle branch block, no acute ischemia. Similar to previous EKG from November of this year. Differential Diagnosis Fracture, nonhealing injury, edema, pain, other Narrative Course Medical decision making 87-year-old woman presents emergent department with poorly healing proximal humerus fracture on the right, spoke with Dr. Roche through the circulating nurse, will come and see patient. Recommend admission for a for surgery. Diagnosis Primary Impression: Fracture of humerus, right, closed Admitting Information Admitting Physician Requests: Admit Favio Rodríguez MD Sep 21, 2017 11:01
--- NOTE | 2017-09-21 11:28 | RADRPT ---
EXAM DATE/TIME: 09/21/2017 11:03 [facility] COMPARISON: CHEST SINGLE AP, December 05, 2016, 18:42. INDICATIONS : Patient complains of rt shoulder pain. Fractured 07/2017. MEDICAL HISTORY : Stroke. Dementia. SURGICAL HISTORY : Hysterectomy. ENCOUNTER: Initial ACUITY: 1 month PAIN SCORE: 10/10 LOCATION: Bilateral Chest. FINDINGS: Minimal left basilar airspace disease and volume loss. Tortuous thoracic aorta. Cardiomediastinal con tours are otherwise stable. Redemonstration of right humeral neck fracture. CONCLUSION: 1. Stable minimal left basal atelectasis/scarring. 2. Redemonstration of right humeral neck fracture. 3. No acute abnormality or significant interval change. Kwame Rose MD on September 21, 2017 at 11:22 Board Certified Radiologist. This report was verified electronically.
[2017-09-21 11:42] LABS: AUTOMATED NEUTROPHIL # 5.5 TH/MM3 (1.8-7.7); BASOPHIL # 0.1 TH/MM3 (0-0.2); BASOPHIL % 0.9 % (0.0-2.0); EOSINOPHIL % 0.5 % (0.0-4.0); HEMATOCRIT 36.7 % (35.0-46.0); HEMO FLAGS DIFF FINAL; LYMPHOCYTE # 1.3 TH/MM3 (1.0-4.8); MEAN CELL VOLUME 102.1 FL (80.0-100.0); MEAN CORPUSCULAR HEMOGLOBIN 35.2 PG (27.0-34.0); MEAN CORPUSCULAR HGB CONC 34.5 % (32.0-36.0); MONO % 10.6 % (0.0-8.0); PLATELET COUNT 324 TH/MM3 (150-450); RED CELL DISTRIBUTION WIDTH 14.7 % (11.6-17.2); WHITE BLOOD COUNT 7.8 TH/MM3 (4.0-11.0)
[2017-09-21 11:53] LABS: APTT (PATIENT) 28.5 SEC (24.3-30.1); PROTHROMBIN TIME - PATIENT 11.4 SEC (9.8-11.6)
[2017-09-21] MEDS ORDERED: NEOSTIGMINE 3 MG/3 ML SYR IV ONE (12:00)
[2017-09-21] MEDS ORDERED: LIDOCAINE HCL 1% PF 5 ML SYRINGE OTHER ONE (12:00)
[2017-09-21] MEDS ORDERED: DEXAMETHASONE SOD PHOS 4 MG/ML VIAL IV ONE (12:00)
[2017-09-21] MEDS ORDERED: PROPOFOL 200 MG/20 ML AMP IV ONE (12:00)
[2017-09-21] MEDS ORDERED: STERILE WATER FOR INJECTION 20 ML VIAL IV ONE (12:00)
[2017-09-21] MEDS ORDERED: ePHEDrine/NS 25 MG/5 ML SYR IV ONE (12:00)
[2017-09-21] MEDS ORDERED: ROCURONIUM INJ 50 MG/5 ML SYRINGE IV PUSH ONE (12:00)
[2017-09-21] MEDS ORDERED: ONDANSETRON HCL 4 MG/2 ML VIAL IV ONE (12:00)
[2017-09-21] MEDS ORDERED: hydrALAZINE HCL 20 MG/ML VIAL IV ONE (12:00)
[2017-09-21] MEDS ORDERED: GLYCOPYRROLATE 1 MG/5 ML SYRINGE IV PUSH ONE (12:00)
[2017-09-21] MEDS ORDERED: SODIUM CHLORIDE 0.9% 20 ML VIAL IV ONE (12:00)
[2017-09-21 12:04] LABS: ANION GAP 7 MEQ/L (5-15); AST (GOT) 14 U/L (15-37); BICARBONATE 26.8 MEQ/L (21.0-32.0); BLOOD UREA NITROGEN 17 MG/DL (7-18); CHLORIDE 93 MEQ/L (98-107); GLOMERULAR FILTRATION RATE 125 ML/MIN (>89); SODIUM (NA) 127 MEQ/L (136-145)
[2017-09-21 12:06] LABS: ALT (GPT) 18 U/L (10-53)
[2017-09-21 12:07] LABS: ALKALINE PHOSPHATASE 71 U/L (45-117); TOTAL BILIRUBIN ADULT 0.7 MG/DL (0.2-1.0)
[2017-09-21] MEDS ORDERED: GENTAMICIN SULFATE 80 MG/2 ML VIAL ONE (12:11)
[2017-09-21] MEDS ORDERED: SODIUM CHLORIDE 0.9% FLUSH 10 ML FLUSH IV FLUSH PRN ×2 (12:15→15:30)
[2017-09-21] MEDS ORDERED: MAGNESIUM HYDROXIDE SUSP 30 ML CUP PO PRN (12:15)
[2017-09-21] MEDS ORDERED: NALOXONE HCL 0.4 MG/ML AMP IV PUSH PRN (12:15)
[2017-09-21] MEDS ORDERED: ONDANSETRON HCL 4 MG/2 ML VIAL IVP PRN (12:15)
[2017-09-21] MEDS ORDERED: VANCOMYCIN HCL 1000 MG VIAL ONE (12:39)
[2017-09-21] MEDS ORDERED: ceFAZolin INJ 1,000 MG VIAL ONE (12:39)
[2017-09-21] MEDS ORDERED: METOPROLOL TARTRATE 25 MG TAB PO PRN (12:45)
[2017-09-21] MEDS ORDERED: SODIUM CHLORID 0.9% 500 ML IV PRN (12:45)
[2017-09-21] MEDS ORDERED: CHLORHEXIDINE GLUCONATE 2 % 1 PACK (2 CLOTHS) TOPICAL PRN (12:45)
[2017-09-21] MEDS ORDERED: POVIDONE IODINE 5% (ANTISEPSIS KIT) 4 APPLICATIONS EACH NARE PRN (12:45)
[2017-09-21] MEDS ORDERED: INSULIN HUMAN REGULAR 1,000 UNITS/10 ML VIAL SQ PRN (12:45)
[2017-09-21] MEDS ORDERED: LACTATED RINGER'S 1000 ML IV PRN (12:45)
[2017-09-21] MEDS ORDERED: PILL SPLITTER OTHER PRN (13:00)
--- NOTE | 2017-09-21 13:18 | HHI.HP ---
HPI Service [facility] Hospitalists Primary Care Physician Edward Thomas D.O. Admission Diagnosis Closed Humerus Fracture Chief Complaint: pain right shoulder Travel History International Travel<30 Days: No Contact w/Intl Traveler <30 Da: No Traveled to Known Affected Are: No History of Present Illness This is an 87 year old female patient with a past medical history which includes Atrial Fibrillation, bradycardia, CVA, HTN, hypothyroidism, dementia and remove history of seizure. Patient was recently seen in ER on 08/28/17 after a slip and fall. She was walking up stairs. She fell onto the chair that was on her right side. A closed right humerus fracture was found and patient being treated nonsurgically following with outpatient orthopedic surgery , Dr. Nolen. Patient was seen by Dr. Nolen earlier this week in clinic and was told to proceed to the ER if the pain gets worse. Patient reports ongoing right shoulder pain and right arm pain. Patient underwent closed reduction with pinning of right proximal humerus with Dr. Nolen. Patient is seen in PACU groggy post-operatively. Information gathered from patient and computer charting. No report of chest pain, SOB, N/V, fevers or chills. Review of Systems Constitutional: DENIES: Fatigue, Fever, Chills Respiratory: DENIES: Cough, Sputum production, Shortness of breath Cardiovascular: DENIES: Chest pain, Palpitations, Dyspnea on Exertion, Lower Extremity Edema Gastrointestinal: DENIES: Abdominal pain, Constipation, Diarrhea Musculoskeletal: COMPLAINS OF: Joint pain, Stiffness Neurologic: DENIES: Abnormal gait, Headache, Speech Problems Psychiatric: DENIES: Anxiety, Confusion, Depression Past Family Social History Past Medical History afib..slow ventricular response cva with tpa 2014 bradycardia..asx and evaluated by cardiology htn hypothyroidism dementia remote history of sz Past Surgical History hx hysterectomy remote injury/repair of LLE fx with chronic edema Reported Medications Spironolactone 25 Mg Tab 12.5 Mg PO DAILY Eliquis (Apixaban) 2.5 Mg Tab 2.5 Mg PO BID Amiloride-Hydrochlorothiazide (Amiloride/HCTZ) 5-50 Mg Tab 1 Tab PO DAILY Give with food. Tramadol (Tramadol HCl) 50 Mg Tab 50 Mg PO Q4H PRN Levothyroxine (Levothyroxine Sodium) 50 Mcg Tab 50 Mcg PO DAILY Divalproex ER (Divalproex Sodium) 250 Mg Mirza 250 Mg PO DAILY Allergies: Coded Allergies: tobramycin (Verified Allergy, Severe, rash, 09/21/17) acetaminophen (Unverified Allergy, Unknown, CONFUSION, 09/21/17) codeine (Unverified Allergy, Unknown, CONFUSION, 09/21/17) CONFUSION furosemide (Unverified Allergy, Unknown, SWELLING, HIVES, 09/21/17) Active Ordered Medications Current Medications Medications (Trade) Dose Ordered Sig/Bethanie Route Start Time Stop Time Status Last Admin Sodium Chloride 1,000 ml @ 42 mls/hr [id number] IV 09/21/17 13:00 (NS Flush) 2 ml UNSCH PRN IV FLUSH 09/21/17 12:15 (NS Flush) 2 ml BID IV FLUSH 09/21/17 21:00 (Zofran Inj) 4 mg Q6H PRN IVP 09/21/17 12:15 (Narcan Inj) 0.4 mg UNSCH PRN IV PUSH 09/21/17 12:15 (Vita-Colace) 1 tab BID PO 09/21/17 21:00 (Milk Of Magnesia Liq) 30 ml Q12H PRN PO 09/21/17 12:15 (Moduretic 5-50 Mg) 1 tab DAILY PO 09/22/17 09:00 (Depakote Er) 250 mg DAILY PO 09/22/17 09:00 (Synthroid) 50 mcg DAILY@0600 PO 09/22/17 06:00 (Aldactone) 12.5 mg DAILY PO 09/22/17 09:00 Lactated Ringer's 1,000 ml @ 30 mls/hr Q24H PRN IV 09/21/17 12:45 09/24/17 12:44 09/21/17 12:20 Sodium Chloride 500 ml @ 30 mls/hr [id number] PRN IV 09/21/17 12:45 09/24/17 12:44 (Lopressor) 25 mg SWITCHMAN PRN PO 09/21/17 12:45 09/24/17 12:44 (Betadine 5% Antisepsis Kit) 1 applic SWITCHMAN PRN EACH NARE 09/21/17 12:45 09/24/17 12:44 (Chlorhexidine 2% Cloth) 3 pack SWITCHMAN PRN TOPICAL 09/21/17 12:45 09/24/17 12:44 (NovoLIN R INJ) See Protocol Table ... SWITCHMAN PRN SQ 09/21/17 12:45 09/24/17 12:44 (Pill Splitter) 1 ea UNSCH PRN OTHER 09/21/17 13:00 Family History Noncontributory Social History Lives with her daughter and son-in-law No tobacco or alcohol use Physical Exam Vital Signs Vital Signs Date Time Temp Pulse Resp B/P (MAP) Pulse Ox O2 Delivery O2 Flow Rate FiO2 09/21/17 11:55 09/21/17 09:16 97.8 40 14 142/39 (73) 99 Physical Exam GENERAL: This is a well-nourished, well-developed patient, drowsy post operatively SKIN: No rashes, ecchymoses or lesions. Cool and dry. post op dressing dry and intact. sling in place RUE EYES: Extraocular motions intact. No scleral icterus. No injection or drainage. CARDIOVASCULAR: Bradycardic RESPIRATORY: Clear to auscultation. Breath sounds equal bilaterally. GASTROINTESTINAL: Abdomen soft, non-tender, nondistended. No hepato-splenomegaly , or palpable masses. No guarding. MUSCULOSKELETAL: No calf tenderness. RUE in sling with post-operative dressing dry and intact NEUROLOGICAL: Groggy post-operatively able to awake and provide some information. Motor and sensory grossly within normal limits, with the exception of RUE post operative. 4-5 out of 5 muscle strength in all muscle groups with the exception of RUE . Normal speech. Laboratory Laboratory Tests Test 09/21/17 11:15 White Blood Count 7.8 Red Blood Count 3.60 Hemoglobin 12.7 Hematocrit 36.7 Mean Corpuscular Volume 102.1 Mean Corpuscular Hemoglobin 35.2 Mean Corpuscular Hemoglobin Concent 34.5 Red Cell Distribution Width 14.7 Platelet Count 324 Mean Platelet Volume 6.5 Neutrophils (%) (Auto) 71.0 Lymphocytes (%) (Auto) 17.0 Monocytes (%) (Auto) 10.6 Eosinophils (%) (Auto) 0.5 Basophils (%) (Auto) 0.9 Neutrophils # (Auto) 5.5 Lymphocytes # (Auto) 1.3 Monocytes # (Auto) 0.8 Eosinophils # (Auto) 0.0 Basophils # (Auto) 0.1 CBC Comment DIFF FINAL Differential Comment Prothrombin Time 11.4 Prothromb Time International Ratio 1.0 Activated Partial Thromboplast Time 28.5 Blood Urea Nitrogen 17 Creatinine 0.47 Random Glucose 90 Total Protein 7.1 Albumin 3.6 Calcium Level 8.9 Alkaline Phosphatase 71 Aspartate Amino Transf (AST/SGOT) 14 Alanine Aminotransferase (ALT/SGPT) 18 Total Bilirubin 0.7 Sodium Level 127 Potassium Level 4.0 Chloride Level 93 Carbon Dioxide Level 26.8 Anion Gap 7 Estimat Glomerular Filtration Rate 125 Result Diagram: 09/21/17 1115 09/21/17 1115 Imaging Last Impressions Chest X-Ray 09/21/17 0000 Signed Impressions: Service Date/Time: Thursday, September 21, 2017 11:03 - CONCLUSION: 1. Stable minimal left basal atelectasis/scarring. 2. Redemonstration of right humeral neck fracture. 3. No acute abnormality or significant interval change. MD Jony Faith VTE Risk Assessment Jony VTE Risk Assessment: Mod/High Risk (score >= 2) Caprini Risk Assessment Model Point Value = 1 Point Value = 2 Point Value = 3 Point Value = 5 Age 41-60 Minor surgery BMI > 25 kg/m2 Swollen legs Varicose veins or History of unexplained or recurrent spontaneous Oral contraceptives or hormone replacement Sepsis (< 1 month) Serious lung disease, including pneumonia (< 1 month) Abnormal pulmonary function Acute myocardial infarction Congestive heart failure (< 1 month) History of inflammatory bowel disease Medical patient at bed rest Age 61-74 Arthroscopic surgery Major open surgery (> 45 min) Laparoscopic surgery (> 45 min) Malignancy Confined to bed (> 72 hours) Immobilizing plaster cast Central venous access Age >= 75 History of VTE Family history of VTE Factor V Leiden Prothrombin [id number] Lupus anticoagulant Anticardiolipin antibodies Elevated serum homocysteine Heparin-induced thrombocytopenia Other congenital or acquired thrombophilia Stroke (< 1 month) Elective arthroplasty Hip, pelvis, or leg fracture Acute spinal cord injury (< 1 month) Prophylaxis Regimen Total Risk Factor Score Risk Level Prophylaxis Regimen 0-1 Low Early ambulation 2 Moderate Order ONE of the following: *Sequential Compression Device (SCD) *Heparin 5000 units SQ BID 3-4 Higher Order ONE of the following medications: *Heparin 5000 units SQ TID *Enoxaparin/Lovenox 40 mg SQ daily (WT < 150 kg, CrCl > 30 mL/min) *Enoxaparin/Lovenox 30 mg SQ daily (WT < 150 kg, CrCl > 10-29 mL/min) *Enoxaparin/Lovenox 30 mg SQ BID (WT < 150 kg, CrCl > 30 mL/min) AND/OR *Sequential Compression Device (SCD) 5 or more Highest Order ONE of the following medications: *Heparin 5000 units SQ TID (Preferred with Epidurals) *Enoxaparin/Lovenox 40 mg SQ daily (WT < 150 kg, CrCl > 30 mL/min) *Enoxaparin/Lovenox 30 mg SQ daily (WT < 150 kg, CrCl > 10-29 mL/min) *Enoxaparin/Lovenox 30 mg SQ BID (WT < 150 kg, CrCl > 30 mL/min) AND *Sequential Compression Device (SCD) Assessment and Plan Problem List: (1) Fracture of humerus, right, closed ICD Codes: S42.301A - Unspecified fracture of shaft of humerus, right arm, initial encounter for closed fracture Plan: Closed right humerus fracture - Consult Orthopedic surgery - patient taken to OR (09/21/17) S/P closed reduction with pinning of right proximal humerus - pain medication as needed Afib Bradycardia - Rate is bradycardic chronically. - Cardiology has been consultation in the past regarding need for possible pacemaker, no PPM per cardiology 11/2016 Hypothyroid - Chronic - continue home Synthroid Hyponatremia 127 - Chronic - hold spironolactone - IVF Na - recheck in AM DVT prophylaxis per surgery (2) Afib ICD Codes: I48.91 - Atrial fibrillation Status: Chronic (3) Bradycardia ICD Codes: R00.1 - Bradycardia Status: Acute (4) Dementia ICD Codes: F03.90 - Dementia Status: Acute (5) Seizure ICD Codes: R56.9 - Seizure Status: Acute (6) Hyponatremia ICD Codes: E87.1 - Hyponatremia Status: Chronic Michelle Luu Sep 21, 2017 13:18
[2017-09-21] MEDS ORDERED: BACITRACIN TOP OINT 15 GM TUBE ONE (14:34)
--- NOTE | 2017-09-21 14:49 | PD.CONS ---
cc: Cameron Nolen Jr., MD HPI Service [facility] Consult Requested By Primary Care Physician Edward Thomas D.O. Admission Diagnosis Closed Humerus Fracture Diagnoses: (1) Fracture of humerus, right, closed (2) Afib (3) Bradycardia (4) Dementia (5) Seizure (6) Hyponatremia History of Present Illness 87 year old female patient with a past medical history which includes Atrial Fibrillation, bradycardia, CVA, HTN, hypothyroidism, dementia and remove history of seizure. Patient was recently seen in ER on 08/28/17 after a slip and fall. She was walking up stairs. She fell onto the chair that was on her right side and sustained a closed left proximal humerus fracture. She was seen outpatient and because of her complicated medical comorbidities and upon request of her family we elected to treat her nonoperatively. She has recently experienced increased pain in the right shoulder. Denies any recurrent falls. Currently is not alert, unable to verbalize and communicate. According to her daughter she screams in pain with any attempted transport or manipulation of the RUE. pain is often relieved at rest. ROS - General Review of Systems Constitutional: DENIES: Fatigue, Fever, Chills Respiratory: DENIES: Cough, Sputum production, Shortness of breath Cardiovascular: DENIES: Chest pain, Palpitations, Dyspnea on Exertion, Lower Extremity Edema Gastrointestinal: DENIES: Abdominal pain, Constipation, Diarrhea Musculoskeletal: COMPLAINS OF: Joint pain, Stiffness Neurologic: DENIES: Abnormal gait, Headache, Speech Problems Psychiatric: DENIES: Anxiety, Confusion, Depression PFSH Past Family Social History Past Medical History afib..slow ventricular response cva with tpa 2014 bradycardia..asx and evaluated by cardiology htn hypothyroidism dementia remote history of sz Past Surgical History hx hysterectomy remote injury/repair of LLE fx with chronic edema Reported Medications Spironolactone 25 Mg Tab 12.5 Mg PO DAILY Eliquis (Apixaban) 2.5 Mg Tab 2.5 Mg PO BID Amiloride-Hydrochlorothiazide (Amiloride/HCTZ) 5-50 Mg Tab 1 Tab PO DAILY Give with food. Tramadol (Tramadol HCl) 50 Mg Tab 50 Mg PO Q4H PRN Levothyroxine (Levothyroxine Sodium) 50 Mcg Tab 50 Mcg PO DAILY Divalproex ER (Divalproex Sodium) 250 Mg Mirza 250 Mg PO DAILY Allergies: Coded Allergies: tobramycin (Verified Allergy, Severe, rash, 09/21/17) acetaminophen (Unverified Allergy, Unknown, CONFUSION, 09/21/17) codeine (Unverified Allergy, Unknown, CONFUSION, 09/21/17) CONFUSION furosemide (Unverified Allergy, Unknown, SWELLING, HIVES, 09/21/17) Past Family Social History Allergies: Coded Allergies: tobramycin (Verified Allergy, Severe, rash, 09/21/17) acetaminophen (Unverified Allergy, Unknown, CONFUSION, 09/21/17) codeine (Unverified Allergy, Unknown, CONFUSION, 09/21/17) CONFUSION furosemide (Unverified Allergy, Unknown, SWELLING, HIVES, 09/21/17) Active Ordered Medications Current Medications Medications (Trade) Dose Ordered Sig/Bethanie Route Start Time Stop Time Status Last Admin Sodium Chloride 1,000 ml @ 42 mls/hr [id number] IV 09/21/17 13:00 (NS Flush) 2 ml UNSCH PRN IV FLUSH 09/21/17 12:15 (NS Flush) 2 ml BID IV FLUSH 09/21/17 21:00 (Zofran Inj) 4 mg Q6H PRN IVP 09/21/17 12:15 (Narcan Inj) 0.4 mg UNSCH PRN IV PUSH 09/21/17 12:15 (Vita-Colace) 1 tab BID PO 09/21/17 21:00 (Milk Of Magnesia Liq) 30 ml Q12H PRN PO 09/21/17 12:15 (Moduretic 5-50 Mg) 1 tab DAILY PO 09/22/17 09:00 (Depakote Er) 250 mg DAILY PO 09/22/17 09:00 (Synthroid) 50 mcg DAILY@0600 PO 09/22/17 06:00 Lactated Ringer's 1,000 ml @ 30 mls/hr Q24H PRN IV 09/21/17 12:45 09/24/17 12:44 09/21/17 12:20 Sodium Chloride 500 ml @ 30 mls/hr [id number] PRN IV 09/21/17 12:45 09/24/17 12:44 (Lopressor) 25 mg LAW ENFORCEMENT DIRECTOR PRN PO 09/21/17 12:45 09/24/17 12:44 (Betadine 5% Antisepsis Kit) 1 applic LAW ENFORCEMENT DIRECTOR PRN EACH NARE 09/21/17 12:45 09/24/17 12:44 (Chlorhexidine 2% Cloth) 3 pack LAW ENFORCEMENT DIRECTOR PRN TOPICAL 09/21/17 12:45 09/24/17 12:44 (NovoLIN R INJ) See Protocol Table ... LAW ENFORCEMENT DIRECTOR PRN SQ 09/21/17 12:45 09/24/17 12:44 (Pill Splitter) 1 ea UNSCH PRN OTHER 09/21/17 13:00 Reported Meds & Active Scripts Active Reported Spironolactone 25 Mg Tab 12.5 Mg PO DAILY Eliquis (Apixaban) 2.5 Mg Tab 2.5 Mg PO BID Amiloride-Hydrochlorothiazide (Amiloride/HCTZ) 5-50 Mg Tab 1 Tab PO DAILY Give with food. Tramadol (Tramadol HCl) 50 Mg Tab 50 Mg PO Q4H PRN Levothyroxine (Levothyroxine Sodium) 50 Mcg Tab 50 Mcg PO DAILY Divalproex ER (Divalproex Sodium) 250 Mg Mirza 250 Mg PO DAILY Physical Exam Vital Signs Vital Signs Date Time Temp Pulse Resp B/P (MAP) Pulse Ox O2 Delivery O2 Flow Rate FiO2 09/21/17 11:55 09/21/17 09:16 97.8 40 14 142/39 (73) 99 Physical Exam Demented. wheelchair Head: NC/AT Neck: No pain with any range of motion and neck. Pulmonary: Normal respiratory effort. RIGHT upper extremity: sling in place. 2+ radial artery pulses. Good cap refill. LEFT upper extremity exam: grossly nvi. 2+ radial artery pulses. Good cap refill. Bilateral lower extremity: Neurovascularly intact, ++ PT/DP pulses. Supple compartments. Negative Homans sign. Laboratory Laboratory Tests Test 09/21/17 11:15 White Blood Count 7.8 Red Blood Count 3.60 Hemoglobin 12.7 Hematocrit 36.7 Mean Corpuscular Volume 102.1 Mean Corpuscular Hemoglobin 35.2 Mean Corpuscular Hemoglobin Concent 34.5 Red Cell Distribution Width 14.7 Platelet Count 324 Mean Platelet Volume 6.5 Neutrophils (%) (Auto) 71.0 Lymphocytes (%) (Auto) 17.0 Monocytes (%) (Auto) 10.6 Eosinophils (%) (Auto) 0.5 Basophils (%) (Auto) 0.9 Neutrophils # (Auto) 5.5 Lymphocytes # (Auto) 1.3 Monocytes # (Auto) 0.8 Eosinophils # (Auto) 0.0 Basophils # (Auto) 0.1 CBC Comment DIFF FINAL Differential Comment Prothrombin Time 11.4 Prothromb Time International Ratio 1.0 Activated Partial Thromboplast Time 28.5 Blood Urea Nitrogen 17 Creatinine 0.47 Random Glucose 90 Total Protein 7.1 Albumin 3.6 Calcium Level 8.9 Alkaline Phosphatase 71 Aspartate Amino Transf (AST/SGOT) 14 Alanine Aminotransferase (ALT/SGPT) 18 Total Bilirubin 0.7 Sodium Level 127 Potassium Level 4.0 Chloride Level 93 Carbon Dioxide Level 26.8 Anion Gap 7 Estimat Glomerular Filtration Rate 125 Result Diagram: 09/21/17 1115 09/21/17 1115 Imaging Last 72 hours Impressions Shoulder X-Ray 09/21/17 0000 Signed Impressions: Service Date/Time: Thursday, September 21, 2017 14:23 - CONCLUSION: Successful pinning of the right humeral neck fracture. Favio Ayala MD Chest X-Ray 09/21/17 0000 Signed Impressions: Service Date/Time: Thursday, September 21, 2017 11:03 - CONCLUSION: 1. Stable minimal left basal atelectasis/scarring. 2. Redemonstration of right humeral neck fracture. 3. No acute abnormality or significant interval change. Kwame Rose MD Assessment & Plan Assessment and Plan 87 year old female patient with a past medical history which includes Atrial Fibrillation, bradycardia, CVA, HTN, hypothyroidism, dementia and remove history of seizure. Patient was recently seen in ER on 08/28/17 after a slip and fall. She was walking up stairs. She fell onto the chair that was on her right side and sustained a closed left proximal humerus fracture. I initially recommended surgical intervention however her family elected to try nonoperative treatment. She failed nonoperative treatment and now presented with increased pain in the right shoulder. She is grossly neurovascularly intact. Patient is demented and poor historian. Her daughter is at the bedside. I recommend close reduction and pinning as the least invasive treatment options at this point. I recommend, open reduction internal fixation. I discussed my treatment plans with the patient's daugther, as well as risks, benefits and alternatives of surgical Intervention versus nonoperative treatment. In this case, the risks of operative intervention involves bleeding , infection, risks of damage to neurovascular structures, the risk of needing further surgery, posttraumatic arthritis and the risks involved with complication from anesthesia. We will proceed with the above procedure. The patient accepts these risks; understands and agrees with my recommendations. I also discussed my proposed postoperative care and follow-up plan. All questions were answered. Plan for OR []. Nothing by mouth []. Patient consented. Thanks for the consult, thanks for allowing me to participate in this patient's medical care. Cameron Nolen Jr., MD Sep 21, 2017 14:49
--- NOTE | 2017-09-21 14:53 | RADRPT ---
EXAM DATE/TIME: 09/21/2017 14:23 [place] COMPARISON: No previous studies available for comparison. INDICATIONS : Surgical repair, humeral head pinning. MEDICAL HISTORY : None. SURGICAL HISTORY : None. ENCOUNTER: Initial ACUITY: 1 day PAIN SCORE: Non-responsive. LOCATION: Right humerus. FINDINGS: Examination of the right shoulder demonstrates a right humeral head has been pinned . The acromiocla vicular joint is intact. No foreign body is identified. CONCLUSION: Successful pinning of the right humeral neck fracture. Favio Ayala MD on September 21, 2017 at 14:50 Board Certified Radiologist. This report was verified electronically.
[2017-09-21] MEDS: SODIUM CHLOR 0.9% 1000 ML INJ 1,000 ML IV SCH (15:00)
[2017-09-21] MEDS ORDERED: ONDANSETRON HCL 4 MG/2 ML VIAL IV PUSH PRN (15:30)
[2017-09-21] MEDS ORDERED: ZOLPIDEM TARTRATE 5 MG TAB PO PRN (15:30)
[2017-09-21] MEDS ORDERED: ACETAMINOPHEN/HYDROcodone 325 MG/5 MG TAB PO PRN ×2 (15:30)
[2017-09-21] MEDS ORDERED: *morphine SULFATE 8 MG/ML PERIprocedure ONLY ONE (15:31)
--- NOTE | 2017-09-21 15:45 | PD.OP ---
cc: Cameron Nolen Jr., MD Operative Report Date of Surgery: Sep 21, 2017 Preoperative Diagnosis: Displaced right proximal humerus Postoperative Diagnosis: Same Procedure: Closed reduction and pinning right proximal humerus Anesthesia: Gen. Surgeon: Cameron Nolen Executive Kitchen Manager(s): Hospital staff Resident Surgeon: None Operation and Findings: INDICATIONS FOR PROCEDURE An 87-year-old female with a 2 part right proximal humerus fracture that is 100 % displaced. Patient failed conservative treatment and presented with increased right shoulder pain. She now presents for closed reduction and pinning. Risks of anesthesia, infection, bleeding, neurovascular damage, stiffness, continued pain, incomplete pain relief, weakness, difficulty with range of motion all explained, nonoperative options outlined. The patient accepts risks and agrees to proceed with planned procedure. DESCRIPTION OF PROCEDURE The patient was taken to the operating room. Anesthesia induced without incident. The patient placed in the beach chair position, the right upper extremity was sterilely prepped and draped. Sterile prepping and draping ensued. Using gentle traction under fluoroscopy and K wires used percutaneously , the proximal humerus fracture was reduced within acceptable anatomic alignment. Two (2) ascending and 2 descending pins were used percutaneously to maintain reduction. Multi-planer fluoroscopy was used to confirm adequate fracture reduction. The small anterior wound used for manipulation was closed with yari. A sterile dressing was applied prior to use a shoulder immobilizer. The patient tolerated the procedure well. There were no complications. Cameron Nolen Jr., MD Sep 21, 2017 15:45
[2017-09-21 16:20] VITALS: BP 128/67; PULSE 50; RESP 18; TEMP 96.5; O2SAT 95
[2017-09-21 20:00] VITALS: PULSE 40
[2017-09-21 20:20] VITALS: BP 114/55; PULSE 51; RESP 16; TEMP 96.6; O2SAT 97
[2017-09-21] MEDS ORDERED: DOCUSATE SODIUM 100 MG CAP PO SCH (21:00)
[2017-09-21] MEDS: SODIUM CHLORIDE 0.9% FLUSH 10 ML FLUSH IV FLUSH SCH ×2 (21:14)
[2017-09-21] MEDS: DOCUSATE SODIUM 50 MG/SENNA 8.6 MG TAB PO SCH (21:14)
[2017-09-21 23:17] VITALS: O2SAT 97
[2017-09-22 00:15] VITALS: BP 116/58; PULSE 55; RESP 16; TEMP 97; O2SAT 98
[2017-09-22 04:13] VITALS: BP 118/54; PULSE 52; RESP 16; TEMP 97.4; O2SAT 97
[2017-09-22] MEDS ORDERED: LEVOTHYROXINE SODIUM 50 MCG TAB PO SCH (06:00)
[2017-09-22 06:53] LABS: AUTOMATED NEUTROPHIL # 6.2 TH/MM3 (1.8-7.7); BASOPHIL % 0.1 % (0.0-2.0); HEMATOCRIT 34.6 % (35.0-46.0); HEMO FLAGS DIFF FINAL; LYMPH % 11.3 % (9.0-44.0); LYMPHOCYTE # 0.9 TH/MM3 (1.0-4.8); MEAN CELL VOLUME 102.1 FL (80.0-100.0); MEAN CORPUSCULAR HEMOGLOBIN 35.5 PG (27.0-34.0); MEAN CORPUSCULAR HGB CONC 34.8 % (32.0-36.0); MONO % 12.4 % (0.0-8.0); NEUT % 76.2 % (16.0-70.0); PLATELET COUNT 282 TH/MM3 (150-450); RED BLOOD COUNT 3.38 MIL/MM3 (4.00-5.30); RED CELL DISTRIBUTION WIDTH 14.3 % (11.6-17.2); WHITE BLOOD COUNT 8.1 TH/MM3 (4.0-11.0)
[2017-09-22 07:06] LABS: BICARBONATE 24.1 MEQ/L (21.0-32.0); POTASSIUM 4.4 MEQ/L (3.5-5.1)
[2017-09-22 08:05] VITALS: BP 103/56; PULSE 54; RESP 19; TEMP 97.1; O2SAT 96
--- NOTE | 2017-09-22 08:26 | HHI.PR ---
Subjective Remarks Patient is awake asking for her daughter Cynthia Patient appears mildly confused able to tell me her name, but thinks she is in Cynthia's (her daughter) house reports minimal pain Objective Vitals Vital Signs Date Time Temp Pulse Resp B/P (MAP) Pulse Ox O2 Delivery O2 Flow Rate FiO2 09/22/17 04:13 97.4 52 16 118/54 (75) 97 09/22/17 00:15 97.0 55 16 116/58 (77) 98 09/21/17 23:17 97 Nasal Cannula 4.00 09/21/17 20:20 96.6 51 16 114/55 (74) 97 09/21/17 20:00 40 09/21/17 19:34 17 09/21/17 16:20 96.5 50 18 128/67 (87) 95 09/21/17 15:46 97.5 51 20 137/70 (92) 93 Nasal Cannula 4 09/21/17 15:30 49 20 139/65 (89) 94 Nasal Cannula 4 09/21/17 15:15 54 20 154/68 (96) 94 Nasal Cannula 4 09/21/17 15:01 97.5 69 20 167/64 (98) 93 Nasal Cannula 4 09/21/17 11:55 09/21/17 09:16 97.8 40 14 142/39 (73) 99 Result Diagram: 09/22/17 0618 09/22/17 0618 Other Results Laboratory Tests Test 09/21/17 11:15 09/22/17 06:18 White Blood Count 7.8 TH/MM3 8.1 TH/MM3 Red Blood Count 3.60 MIL/MM3 3.38 MIL/MM3 Hemoglobin 12.7 GM/DL 12.0 GM/DL Hematocrit 36.7 % 34.6 % Mean Corpuscular Volume 102.1 FL 102.1 FL Mean Corpuscular Hemoglobin 35.2 PG 35.5 PG Mean Corpuscular Hemoglobin Concent 34.5 % 34.8 % Red Cell Distribution Width 14.7 % 14.3 % Platelet Count 324 TH/MM3 282 TH/MM3 Mean Platelet Volume 6.5 FL 6.8 FL Neutrophils (%) (Auto) 71.0 % 76.2 % Lymphocytes (%) (Auto) 17.0 % 11.3 % Monocytes (%) (Auto) 10.6 % 12.4 % Eosinophils (%) (Auto) 0.5 % 0.0 % Basophils (%) (Auto) 0.9 % 0.1 % Neutrophils # (Auto) 5.5 TH/MM3 6.2 TH/MM3 Lymphocytes # (Auto) 1.3 TH/MM3 0.9 TH/MM3 Monocytes # (Auto) 0.8 TH/MM3 1.0 TH/MM3 Eosinophils # (Auto) 0.0 TH/MM3 0.0 TH/MM3 Basophils # (Auto) 0.1 TH/MM3 0.0 TH/MM3 CBC Comment DIFF FINAL DIFF FINAL Differential Comment Prothrombin Time 11.4 SEC Prothromb Time International Ratio 1.0 RATIO Activated Partial Thromboplast Time 28.5 SEC Blood Urea Nitrogen 17 MG/DL 16 MG/DL Creatinine 0.47 MG/DL 0.52 MG/DL Random Glucose 90 MG/DL 114 MG/DL Total Protein 7.1 GM/DL Albumin 3.6 GM/DL Calcium Level 8.9 MG/DL 8.6 MG/DL Alkaline Phosphatase 71 U/L Aspartate Amino Transf (AST/SGOT) 14 U/L Alanine Aminotransferase (ALT/SGPT) 18 U/L Total Bilirubin 0.7 MG/DL Sodium Level 127 MEQ/L 128 MEQ/L Potassium Level 4.0 MEQ/L 4.4 MEQ/L Chloride Level 93 MEQ/L 97 MEQ/L Carbon Dioxide Level 26.8 MEQ/L 24.1 MEQ/L Anion Gap 7 MEQ/L 7 MEQ/L Estimat Glomerular Filtration Rate 125 ML/MIN 111 ML/MIN Imaging Last Impressions Chest X-Ray 09/21/17 0000 Signed Impressions: Service Date/Time: Thursday, September 21, 2017 11:03 - CONCLUSION: 1. Stable minimal left basal atelectasis/scarring. 2. Redemonstration of right humeral neck fracture. 3. No acute abnormality or significant interval change. Kwame Rose MD Objective Remarks GENERAL: This is an elderly 87 year old female, in no acute distress SKIN: Cool and dry. post op dressing dry and intact. sling in place RUE CARDIOVASCULAR: Bradycardic RESPIRATORY: Clear to auscultation. Breath sounds equal bilaterally. GASTROINTESTINAL: Abdomen soft, non-tender, nondistended. No hepato-splenomegaly , or palpable masses. No guarding. MUSCULOSKELETAL: No calf tenderness. RUE in sling with post-operative dressing dry and intact NEUROLOGICAL: able to provide her name correctly, but thinks she is in Cynthia's house. Motor and sensory grossly within normal limits, with the exception of RUE post operative. 4-5 out of 5 muscle strength in all muscle groups with the exception of RUE . Normal speech. Procedures Closed reduction and pinning right proximal humerus (09/21) with Dr. Nolen A/P Problem List: (1) Fracture of humerus, right, closed ICD Codes: S42.301A - Unspecified fracture of shaft of humerus, right arm, initial encounter for closed fracture Plan: Closed right humerus fracture - Consult Orthopedic surgery - patient taken to OR (09/21/17) S/P closed reduction with pinning of right proximal humerus with Dr. Nolen - pain medication as needed per family request pain medication changes to acetaminophen and tramadol - Updated patient's son -in law Alberto. He reports that at time of DC he and his would like patient to return home with them. They had a bad experience with another family member at a SNF and do not wish for patient to go to SNF. Afib Bradycardia - Rate is bradycardic chronically. - Cardiology has been consultation in the past regarding need for possible pacemaker, no PPM per cardiology 11/2016 - Patient had been on Eliquis in the past but has not been taking Eliquis for the past month- family does not want Eliquis restarted at this time. Hypothyroid - Chronic - continue home Synthroid Hyponatremia 127 -> 128 - Chronic in review of outpatient records baseline sodium between 127-130 - hold spironolactone - gentle IVF NS at 42/H, will DC once patient taking PO - encourage PO intake regular diet, pureed DVT prophylaxis with SCDs further anticoagulation per surgery (2) Afib ICD Codes: I48.91 - Atrial fibrillation Status: Chronic (3) Bradycardia ICD Codes: R00.1 - Bradycardia Status: Acute (4) Dementia ICD Codes: F03.90 - Dementia Status: Acute (5) Seizure ICD Codes: R56.9 - Seizure Status: Acute (6) Hyponatremia ICD Codes: E87.1 - Hyponatremia Status: Chronic Michelle Luu Sep 22, 2017 08:26
[2017-09-22 08:41] VITALS: PULSE 54
[2017-09-22] MEDS: SODIUM CHLORIDE 0.9% FLUSH 10 ML FLUSH IV FLUSH SCH ×2 (09:00→09:27)
[2017-09-22] MEDS ORDERED: aMILoride/HCTZ 5 MG/50 MG TAB PO SCH (09:00)
[2017-09-22] MEDS ORDERED: DIVALPROEX SODIUM E.R. 250 MG TAB PO SCH (09:00)
[2017-09-22] MEDS ORDERED: SPIRONOLACTONE 25 MG TAB PO SCH (09:00)
[2017-09-22] MEDS ORDERED: ACETAMINOPHEN 500 MG CPLT PO PRN (09:15)
[2017-09-22] MEDS ORDERED: traMADol HCL 50 MG TAB PO PRN (09:15)
[2017-09-22] MEDS: DOCUSATE SODIUM 50 MG/SENNA 8.6 MG TAB PO SCH (09:28)
[2017-09-22] MEDS: SODIUM CHLOR 0.9% 1000 ML INJ 1,000 ML IV SCH (09:29)
[2017-09-22 09:52] VITALS: O2SAT 92
[2017-09-22] MEDS ORDERED: traMADol HCL 50 MG TAB PO SCH (11:00)
[2017-09-22 12:33] VITALS: BP 117/59; PULSE 51; RESP 16; TEMP 98.4; O2SAT 100
--- NOTE | 2017-09-22 12:45 | PD.ORT.PN ---
Subjective Subjective Remarks No issues. Pain controlled Objective Vitals Vital Signs Date Time Temp Pulse Resp B/P (MAP) Pulse Ox O2 Delivery O2 Flow Rate FiO2 09/22/17 09:52 92 Nasal Cannula 4.00 09/22/17 08:05 97.1 54 19 103/56 (72) 96 09/22/17 04:13 97.4 52 16 118/54 (75) 97 09/22/17 00:15 97.0 55 16 116/58 (77) 98 09/21/17 23:17 97 Nasal Cannula 4.00 09/21/17 20:20 96.6 51 16 114/55 (74) 97 09/21/17 20:00 40 09/21/17 19:34 17 09/21/17 16:20 96.5 50 18 128/67 (87) 95 09/21/17 15:46 97.5 51 20 137/70 (92) 93 Nasal Cannula 4 09/21/17 15:30 49 20 139/65 (89) 94 Nasal Cannula 4 09/21/17 15:15 54 20 154/68 (96) 94 Nasal Cannula 4 09/21/17 15:01 97.5 69 20 167/64 (98) 93 Nasal Cannula 4 I/O 09/21/17 09/21/17 09/21/17 09/22/17 09/22/17 09/22/17 07:00 15:00 23:00 07:00 15:00 23:00 Intake Total 750 ml 340 ml 220 ml Output Total 5 ml Balance 745 ml 340 ml 220 ml Intake Oral 240 ml 120 ml IV Total 750 ml 100 ml 100 ml Output Estimated Blood Loss 5 ml # Voids 0 2 # Bowel Movements 0 0 Result Diagram: 09/22/1718 09/22/17 0618 Objective Remarks Demented. Neck: No pain with any range of motion and neck. Pulmonary: Normal respiratory effort. Right upper extremity exam: Sling in place. dressing CDI. 2+ radial artery pulses. Good cap refill. LUE: Neurovascularly intact Assessment & Plan Assessment and Plan POD #1- right shoulder closed reduction and pinning Doing wel Antibiotics: Ancef DVT prophylaxis,SCD Weightbearing status: NWB Dressing change: none Dispo: dc home with family with [facility] Follow-up: 1 week, Dr. Nolen, Orthopedic Clinic [facility] Thank you for the consult and allowing us to take part in this patient's medical care. Cameron Nolen Jr., MD Sep 22, 2017 12:45
--- NOTE | 2017-09-22 12:46 | HHI.FF ---
Face to Face Verification Diagnosis: (1) Fracture of humerus, right, closed Physical Therapy Gait training, Safety evaluation, Transfer training, bed to chair, Wheelchair training Occupational Therapy Right UE Weight Bearing: Non WB Right UE Range of Motion: No ROM Nursing RN: 3 days/week x 2 weeks Nursing: Other (self care) Dressing Changes: Do not change dressing I have seen patient Denise Mcginnis on 09/22/17. My clinical findings support the need for the requested home health care services because: Ltd mobility - disease progression I certify that my clinical findings support that this patient is homebound because: Post-op weakness Cameron Nolen Jr., MD Sep 22, 2017 12:46
[2017-09-22] MEDS ORDERED: TRAM50TA PO (12:49)
--- NOTE | 2017-09-22 13:11 | HHI.DS ---
Discharge Summary Admission Date Sep 21, 2017 at 11:42 Discharge Date: Sep 22, 2017 Admitting Diagnosis Closed Humerus Fracture (1) Fracture of humerus, right, closed ICD Codes: S42.301A - Unspecified fracture of shaft of humerus, right arm, initial encounter for closed fracture (2) Afib ICD Codes: I48.91 - Atrial fibrillation Status: Chronic (3) Bradycardia ICD Codes: R00.1 - Bradycardia Status: Acute (4) Dementia ICD Codes: F03.90 - Dementia Status: Acute (5) Seizure ICD Codes: R56.9 - Seizure Status: Acute (6) Hyponatremia ICD Codes: E87.1 - Hyponatremia Status: Chronic Consultants Dr. Nolen Procedures Closed reduction and pinning right proximal humerus (09/21) with Dr. Nolen Brief History This is an 87 year old female patient with a past medical history which includes Atrial Fibrillation, bradycardia, CVA, HTN, hypothyroidism, dementia and remove history of seizure. Patient was recently seen in ER on 08/28/17 after a slip and fall. She was walking up stairs. She fell onto the chair that was on her right side. A closed right humerus fracture was found and patient being treated nonsurgically following with outpatient orthopedic surgery , Dr. Nolen. Patient was seen by Dr. Nolen earlier this week in clinic and was told to proceed to the ER if the pain gets worse. Patient reports ongoing right shoulder pain and right arm pain. Patient underwent closed reduction with pinning of right proximal humerus with Dr. Nolen. Patient is seen in PACU groggy post-operatively. Information gathered from patient and computer charting. No report of chest pain, SOB, N/V, fevers or chills. CBC/BMP: 09/22/17 0618 09/22/17 0618 Significant Findings Laboratory Tests Test 09/21/17 11:15 09/22/17 06:18 Red Blood Count 3.60 MIL/MM3 (4.00-5.30) 3.38 MIL/MM3 (4.00-5.30) Mean Corpuscular Volume 102.1 FL (80.0-100.0) 102.1 FL (80.0-100.0) Mean Corpuscular Hemoglobin 35.2 PG (27.0-34.0) 35.5 PG (27.0-34.0) Mean Platelet Volume 6.5 FL (7.0-11.0) 6.8 FL (7.0-11.0) Neutrophils (%) (Auto) 71.0 % (16.0-70.0) 76.2 % (16.0-70.0) Monocytes (%) (Auto) 10.6 % (0.0-8.0) 12.4 % (0.0-8.0) Creatinine 0.47 MG/DL (0.50-1.00) Aspartate Amino Transf (AST/SGOT) 14 U/L (15-37) Sodium Level 127 MEQ/L (136-145) 128 MEQ/L (136-145) Chloride Level 93 MEQ/L (98-107) 97 MEQ/L (98-107) Hematocrit 34.6 % (35.0-46.0) Lymphocytes # (Auto) 0.9 TH/MM3 (1.0-4.8) Monocytes # (Auto) 1.0 TH/MM3 (0-0.9) Random Glucose 114 MG/DL (74-106) Imaging Last Impressions Shoulder X-Ray 09/21/17 0000 Signed Impressions: Service Date/Time: Thursday, September 21, 2017 14:23 - CONCLUSION: Successful pinning of the right humeral neck fracture. Favio Ayala MD Chest X-Ray 09/21/17 0000 Signed Impressions: Service Date/Time: Thursday, September 21, 2017 11:03 - CONCLUSION: 1. Stable minimal left basal atelectasis/scarring. 2. Redemonstration of right humeral neck fracture. 3. No acute abnormality or significant interval change. Kwame Rose MD PE at Discharge GENERAL: This is an elderly 87 year old female, in no acute distress SKIN: Cool and dry. post op dressing dry and intact. sling in place RUE CARDIOVASCULAR: Bradycardic RESPIRATORY: Clear to auscultation. Breath sounds equal bilaterally. GASTROINTESTINAL: Abdomen soft, non-tender, nondistended. No hepato-splenomegaly , or palpable masses. No guarding. MUSCULOSKELETAL: No calf tenderness. RUE in sling with post-operative dressing dry and intact NEUROLOGICAL: able to provide her name correctly, but thinks she is in Cynthia's house. Motor and sensory grossly within normal limits, with the exception of RUE post operative. 4-5 out of 5 muscle strength in all muscle groups with the exception of RUE . Normal speech. Hospital Course Closed right humerus fracture - Consult Orthopedic surgery - patient taken to OR (09/21/17) S/P closed reduction with pinning of right proximal humerus with Dr. Nolen - pain medication as needed per family request pain medication changes to acetaminophen and tramadol - Updated patient's son -in law Alberto. He reports that at time of DC he and his would like patient to return home with them. They had a bad experience with another family member at a SNF and do not wish for patient to go to SNF. - Orthopedic cleared patient for DC home with [facility] Afib Bradycardia - Rate is bradycardic chronically. - Cardiology has been consultation in the past regarding need for possible pacemaker, no PPM per cardiology 11/2016 - Patient had been on Eliquis in the past but has not been taking Eliquis for the past month- family does not want Eliquis restarted at this time. Hypothyroid - Chronic - continue home Synthroid Hyponatremia 127 -> 128 - Chronic in review of outpatient records baseline sodium between 127-130 - hold spironolactone - gentle IVF NS at 42/H, will DC once patient taking PO - encourage PO intake regular diet, pureed DVT prophylaxis with SCDs further anticoagulation per surgery Pt Condition on Discharge: Stable Discharge Disposition: Disch w/ Home Health Serv Discharge Instructions DIET: Follow Instructions for: As Tolerated, No Restrictions, Pureed Diet Activities you can perform: See Additionl Instruction Other Activity Instructions: activity per orthopedic surgery Non weight bearing right upper extremity Follow up Referrals: Orthopedics - 1 Week with Cameron Nolen Jr., MD PCP Follow-up - [address] Thomas New Medications: Tramadol (Tramadol) 50 Mg Tab 50 MG PO Q4H PRN for PAIN, #30 TAB 0 Refills Continued Medications: Amiloride-Hydrochlorothiazide (Amiloride-Hydrochlorothiazide) 5-50 Mg Tab 1 TAB PO DAILY for Blood Pressure Management, #30 TAB 0 Refills Give with food. Divalproex ER (Divalproex ER) 250 Mg Mirza 250 MG PO DAILY for Control Seizures, #30 TAB 0 Refills Levothyroxine (Levothyroxine) 50 Mcg Tab 50 MCG PO DAILY for Thyroid, #30 TAB 0 Refills Spironolactone (Spironolactone) 25 Mg Tab 12.5 MG PO DAILY, #15 TAB 0 Refills Tramadol (Tramadol) 50 Mg Tab 50 MG PO Q4H PRN for PAIN, TAB 0 Refills Discontinued Medications: Apixaban (Eliquis) 2.5 Mg Tab 2.5 MG PO BID for Blood Clot Prevention, TAB 0 Refills Michelle Luu Sep 22, 2017 13:11
--- NOTE | 2017-09-22 13:12 | HHI.DCPOC ---
Discharge Care Plan Diagnosis: (1) Fracture of humerus, right, closed Goals to Promote Your Health * To prevent worsening of your condition and complications * To maintain your health at the optimal level Directions to Meet Your Goals Take your medications as prescribed Follow your dietary instruction Follow activity as directed Keep your appointments as scheduled Take your immunizations and boosters as scheduled If your symptoms worsen call your PCP, if no PCP go to Urgent Care Center or Emergency Room Smoking is Dangerous to Your Health. Avoid second hand smoke Call the 24-hour hour crisis hotline for domestic abuse at Michelle Luu Sep 22, 2017 13:12
--- NOTE | 2017-09-22 23:11 | EKG ---
Date Performed: 09/21/2017 Time Performed: 10:52:05 PTAGE: 87 years EKG: UNCERTAIN REGULAR RHYTHM MARKED RIGHT AXIS DEVIATION RIGHT BUNDLE BRANCH BLOCK ABNORMAL ECG PREVIOUS TRACING : 12/05/2016 20.31 Compared to prior tracing no significant change DOCTOR: Maycol Zhang Interpretating Date/Time 09/22/2017 23:09:46
== END 2017-09-22 16:50 | disposition home health service (06) | DRG 493 ==
LOC: NEPC 09:14 → NEDA 11:42 → N06A 16:17
PROVIDERS: ADMIT Hospitalist; ATTEND Hospitalist
PROC: 0PSC34Z Reposition Right Humeral Head with Internal Fixation Device, Percutaneous Approach (ICD-10-PCS; principal; 2017-09-21 13:09)
DX: S42.201G Unspecified fracture of upper end of right humerus, subsequent encounter for fracture with delayed healing (principal); E87.1 Hypo-osmolality and hyponatremia; R00.1 Bradycardia, unspecified; F01.50 Vascular dementia, unspecified severity, without behavioral disturbance, psychotic disturbance, mood disturbance, and anxiety; I48.91 Unspecified atrial fibrillation; E03.9 Hypothyroidism, unspecified; I10 Essential (primary) hypertension; W10.8XXD Fall (on) (from) other stairs and steps, subsequent encounter; Z86.73 Personal history of transient ischemic attack (TIA), and cerebral infarction without residual deficits; Z88.1 Allergy status to other antibiotic agents; Z88.5 Allergy status to narcotic agent; Z88.6 Allergy status to analgesic agent
CPT/HCPCS: 71010; 73020; 76000; 80048; 80053; 85025; 85610; 85730; 93005; 99285; J0360; J0690; J1100; J1580; J2270; J2405; J2710; J3010; J3370; J7030; J7120

== ENCOUNTER 2017-10-03 11:30 | Observation (INO) | payer MEDICARE ==
[~2017-10-03 11:30] MED LIST changes: -APIX2.5T PO; +SPIR25TA PO
[2017-10-03 11:46] VITALS: BP 126/60; PULSE 40; RESP 20; TEMP 97.9
--- NOTE | 2017-10-03 11:50 | PD ---
HPI Chief Complaint: Fall Time Seen by Provider: 11:47 Travel History International Travel<30 days: No Contact w/Intl Traveler<30days: No History of Present Illness HPI 87-year-old female presents to the ED via EMS after a witnessed fall from sitting in a chair. The patient is alert to self and that she is in the state of [place], otherwise unable to provide any meaningful information. When asked if she has any pain she states "none to speak of." She states that she lives with her daughter. Per EMS report the fall was witnessed and the patient did not hit her head or lose consciousness. Patient was seen in the ambulance all and is awaiting bed placement. PFSH Past Medical History Hx Anticoagulant Therapy: Yes (STOPPED ELIQUIS 08/25/17 FOR SURG) Arthritis: Yes (BILATERAL KNEES) Asthma: No Atrial Fibrillation: Yes Blood Disorders: No Heart Rhythm Problems: Yes (afib & BRADYCARDIA) Cancer: No Cardiovascular Problems: Yes High Cholesterol: Yes Chest Pain: Yes Congestive Heart Failure: Yes COPD: No Cerebrovascular Accident: Yes Dementia: Yes Diabetes: No Diminished Hearing: No Endocrine: Yes Gastrointestinal Disorders: Yes (incontinence) GERD: Yes Genitourinary: Yes (incontinence) Hypertension: Yes Musculoskeletal: Yes Neurologic: Yes Reproductive: No Respiratory: No Seizures: Yes Sleep Apnea: No Thyroid Disease: Yes (HYPOTHYROIDISM) Past Surgical History Eye Surgery: Yes (Right Cataract surgery ) Tonsillectomy: Yes Other Surgery: Yes (breast biopsy) Social History Alcohol Use: No Tobacco Use: No Substance Use: No Allergies-Medications (Allergen,Severity, Reaction): Coded Allergies: tobramycin (Verified Allergy, Severe, rash, 10/03/17) acetaminophen (Unverified Allergy, Unknown, CONFUSION, 10/03/17) codeine (Unverified Allergy, Unknown, CONFUSION, 10/03/17) CONFUSION furosemide (Unverified Allergy, Unknown, SWELLING, HIVES, 10/03/17) Reported Meds & Prescriptions Reported Meds & Active Scripts Active Tramadol (Tramadol HCl) 50 Mg Tab 50 Mg PO Q4H PRN Reported Spironolactone 25 Mg Tab 12.5 Mg PO DAILY Amiloride-Hydrochlorothiazide (Amiloride/HCTZ) 5-50 Mg Tab 1 Tab PO DAILY Give with food. Tramadol (Tramadol HCl) 50 Mg Tab 50 Mg PO Q4H PRN Levothyroxine (Levothyroxine Sodium) 50 Mcg Tab 50 Mcg PO DAILY Divalproex ER (Divalproex Sodium) 250 Mg Mirza 250 Mg PO DAILY Review of Systems Except as stated in HPI: all other systems reviewed are Neg Physical Exam Narrative GENERAL: Thin, frail white female in no acute distress. SKIN: Focused skin assessment warm/dry. HEAD: Normocephalic. Atraumatic. EYES: No scleral icterus. No injection or drainage. NECK: Supple, trachea midline. No JVD or lymphadenopathy. No midline tenderness to palpation. CARDIOVASCULAR: Regular rate and rhythm without murmurs, gallops, or rubs. RESPIRATORY: Breath sounds equal bilaterally. No accessory muscle use. GASTROINTESTINAL: Abdomen soft, non-tender, nondistended. MUSCULOSKELETAL: No cyanosis, or edema. The right arm is in a sling and swath. Strong steward/stewardess banquet strength and good sensation in the right hand. Tender to palpation of the distal right femur and knee joint. Tender to palpation of the bilateral popliteal areas. No other tenderness to palpation of the joints of the upper or lower extremities bilaterally. No pain elicited with hip rocking. BACK: Nontender without obvious deformity. No CVA tenderness. Data Data Last Documented VS Vital Signs Date Time Temp Pulse Resp B/P (MAP) Pulse Ox O2 Delivery O2 Flow Rate FiO2 10/03/17 15:34 40 22 157/68 (97) 96 Room Air 10/03/17 11:46 97.9 Orders Orders Femur (Ap & Lat/2vws) (10/03/17 11:44) Knee, Complete (4vws) (10/03/17 11:44) Ice/Cold Pack (10/03/17 11:44) Complete Blood Count With Diff (10/03/17 13:24) Basic Metabolic Panel (Bmp) (10/03/17 13:24) Coag Profile (10/03/17 13:24) Us Leg Venous Doppler Bilat (10/03/17 13:24) Tramadol-Acetamin 37.5-325 Mg (Ultracet (10/03/17 13:30) Iv Access Insert/Monitor (10/03/17 13:24) Urinalysis - C+S If Indicated (10/03/17 15:27) Electrocardiogram (10/03/17 ) Ct Brain W/O Iv Contrast(Rout) (10/03/17 ) Labs Laboratory Tests Test 10/03/17 13:48 White Blood Count 8.1 TH/MM3 Red Blood Count 3.59 MIL/MM3 Hemoglobin 12.6 GM/DL Hematocrit 36.3 % Mean Corpuscular Volume 101.3 FL Mean Corpuscular Hemoglobin 35.2 PG Mean Corpuscular Hemoglobin Concent 34.8 % Red Cell Distribution Width 13.9 % Platelet Count 318 TH/MM3 Mean Platelet Volume 6.8 FL Neutrophils (%) (Auto) 77.8 % Lymphocytes (%) (Auto) 13.0 % Monocytes (%) (Auto) 8.4 % Eosinophils (%) (Auto) 0.4 % Basophils (%) (Auto) 0.4 % Neutrophils # (Auto) 6.3 TH/MM3 Lymphocytes # (Auto) 1.1 TH/MM3 Monocytes # (Auto) 0.7 TH/MM3 Eosinophils # (Auto) 0.0 TH/MM3 Basophils # (Auto) 0.0 TH/MM3 CBC Comment DIFF FINAL Differential Comment Blood Urea Nitrogen 13 MG/DL Creatinine 0.47 MG/DL Random Glucose 91 MG/DL Calcium Level 9.2 MG/DL Sodium Level 126 MEQ/L Potassium Level 4.2 MEQ/L Chloride Level 92 MEQ/L Carbon Dioxide Level 26.7 MEQ/L Anion Gap 7 MEQ/L Estimat Glomerular Filtration Rate 125 ML/MIN MDM Medical Decision Making Medical Screen Exam Complete: Yes Emergency Medical Condition: Yes Differential Diagnosis fall versus contusion versus musculoskeletal pain versus fracture versus other Narrative Course 87-year-old female presents to the ED via EMS after a witnessed fall from sitting in a chair. The patient is alert to self and that she is in the state of [place], otherwise unable to provide any meaningful information. When asked if she has any pain she states "none to speak of." She states that she lives with her daughter. Per EMS report the fall was witnessed and the patient did not hit her head or lose consciousness. Patient was seen in the ambulance [place] and is awaiting bed placement. The patient's daughter arrives and is able to give more history. She states that she was attempted transfer her mother to the bedside commode and the patient was unable to bear weight and slid to the ground. She additionally attempted to try to transfer her one more time but the patient was again unable to bear weight. The patient's daughter states that the patient has recently suffered multiple small injuries and is generally in decline. She states that she stopped taking blood thinners around 6 weeks ago. CBC, CMP, UA, EKG, bilateral ultrasounds of the lower extremities ordered and pending. Patient is awaiting bed placement. Please see oncoming provider' s note for disposition. Shelby Lopez Oct 03, 2017 11:50
[2017-10-03] MEDS ORDERED: traMADol/ACETAMINOPHEN 37.5/325 1 TAB PO ONE (13:30)
--- NOTE | 2017-10-03 13:43 | RADRPT ---
EXAM DATE/TIME: 10/03/2017 12:49 [facility] COMPARISON: No previous studies available for comparison. INDICATIONS : Right knee pain, fall out of chair. MEDICAL HISTORY : Stroke. SURGICAL HISTORY : ORIF right humerus ENCOUNTER: Initial ACUITY: 1 day PAIN SCORE: 8/10 LOCATION: Right lateral knee FINDINGS: The osseous structures are severely demineralized. Mild to moderate 3 compartment arthropathy is noted with marginal spurring and joint space narrowing. There is no evidence of acute fracture. Small effusion may be present. CONCLUSION: 1. Possible small joint effusion. 2. No evidence of acute fracture. 3. Severe bone demineralization. 4. Moderate arthropathy. Forest Dennis MD on October 03, 2017 at 13:40 Board Certified Radiologist. This report was verified electronically.
--- NOTE | 2017-10-03 13:47 | RADRPT ---
EXAM DATE/TIME: 10/03/2017 12:57 [facility] COMPARISON: No previous studies available for comparison. INDICATIONS : Right femur pain, fall out of chair. MEDICAL HISTORY : Stroke. SURGICAL HISTORY : ORIF right humerus ENCOUNTER: Initial ACUITY: 1 day PAIN SCORE: 10/10 LOCATION: Right middle femur FINDINGS: Two view examination of the right femur demonstrates no evidence of fracture or dislocation. Bony mi neralization is significantly decreased The soft tissue structures are intact. CONCLUSION: 1. Significant decrease in bone mineralization. 2. No evidence of acute fracture. Forest Dennis MD on October 03, 2017 at 13:45 Board Certified Radiologist. This report was verified electronically.
[2017-10-03 14:18] LABS: AUTOMATED NEUTROPHIL # 6.3 TH/MM3 (1.8-7.7); BASOPHIL % 0.4 % (0.0-2.0); EOSINOPHIL % 0.4 % (0.0-4.0); HEMATOCRIT 36.3 % (35.0-46.0); HEMO FLAGS DIFF FINAL; LYMPHOCYTE # 1.1 TH/MM3 (1.0-4.8); MEAN CELL VOLUME 101.3 FL (80.0-100.0); MEAN CORPUSCULAR HEMOGLOBIN 35.2 PG (27.0-34.0); MEAN CORPUSCULAR HGB CONC 34.8 % (32.0-36.0); MONO % 8.4 % (0.0-8.0); NEUT % 77.8 % (16.0-70.0); PLATELET COUNT 318 TH/MM3 (150-450); RED BLOOD COUNT 3.59 MIL/MM3 (4.00-5.30); RED CELL DISTRIBUTION WIDTH 13.9 % (11.6-17.2); WHITE BLOOD COUNT 8.1 TH/MM3 (4.0-11.0)
[2017-10-03 14:54] LABS: BICARBONATE 26.7 MEQ/L (21.0-32.0); POTASSIUM 4.2 MEQ/L (3.5-5.1)
[2017-10-03 15:34] VITALS: BP 157/68; PULSE 40; RESP 22; O2SAT 96
--- NOTE | 2017-10-03 15:43 | RADRPT ---
EXAM DATE/TIME: 10/03/2017 14:17 [place] COMPARISON: No previous studies available for comparison. INDICATIONS : Pain in bilateral legs. MEDICAL HISTORY : Hyperthyroidism. Gastroesophageal reflux disease. Hypercholesterolemia. Cerebral vascular accident. D ementia. Congestive heart failure. A Fib. Bradycardia. Hypertention. Arthritis. SURGICAL HISTORY : Tonsillectomy. Breast biopsy. ENCOUNTER: Initial ACUITY: 1 day PAIN SCORE: 8/10 LOCATION: Bilateral leg. TECHNIQUE: Venous ultrasound of the left and right leg was performed from the inguinal ligament to the proximal calf. Real-time, color Doppler and spectral tracing, compression and augmentation techniques were us ed. FINDINGS: RIGHT LEG: Occlusive thrombus in the posterior tibial vein. There is normal compressibility of the deep venous s ystem from the inguinal region to the proximal calf. No echogenic clot is seen in the lumen of the c ommon femoral, femoral, and popliteal veins. There is a normal response of the venous system to prox imal and distal augmentation and respiration. LEFT LEG: Occlusive thrombus in the posterior tibial vein. There is normal compressibility of the deep venous s ystem from the inguinal region to the proximal calf. No echogenic clot is seen in the lumen of the c ommon femoral, femoral, and popliteal veins. There is a normal response of the venous system to prox imal and distal augmentation and respiration. CONCLUSION: 1. Findings consistent with bilateral posterior tibial (calf) vein DVTs. Kwame Rose MD on October 03, 2017 at 15:40 Board Certified Radiologist. This report was verified electronically.
[2017-10-03] MEDS ORDERED: SODIUM CHLORIDE 0.9% FLUSH 10 ML FLUSH IV FLUSH PRN (16:15)
[2017-10-03] MEDS ORDERED: ACETAMINOPHEN 325 MG TAB PO PRN (16:15)
[2017-10-03] MEDS ORDERED: ONDANSETRON HCL 4 MG/2 ML VIAL IVP PRN (16:15)
[2017-10-03] MEDS ORDERED: MAGNESIUM HYDROXIDE SUSP 30 ML CUP PO PRN (16:15)
[2017-10-03] MEDS ORDERED: NALOXONE HCL 0.4 MG/ML AMP IV PUSH PRN (16:15)
--- NOTE | 2017-10-03 16:21 | HHI.HP ---
HPI Service [facility] Hospitalists Primary Care Physician Edward Thomas D.O. Admission Diagnosis Travel History International Travel<30 Days: No Contact w/Intl Traveler <30 Da: No Traveled to Known Affected Are: No History of Present Illness This is an 87 year old female patient with a past medical history which includes Atrial Fibrillation, bradycardia, CVA, HTN, hypothyroidism, dementia and remove history of seizure. Patient was recently in the hospital from - 09/22/17. Patient underwent closed reduction with pinning of right proximal humerus 09/21/[address] Nolen. On 08/28/17 patient was walking up stairs. She fell onto the chair that was on her right side. A closed right humerus fracture was found and patient being treated nonsurgically following with outpatient orthopedic surgery, Dr. Nolen. Today patient afib..slow ventricular response cva with tpa 2014 bradycardia..asx and evaluated by cardiology htn hypothyroidism dementia remote history of sz Past Surgical History hx hysterectomy remote injury/repair of LLE fx with chronic edema Family History Noncontributory Social History Lives with her daughter and son-in-law No tobacco or alcohol use Past Family Social History Allergies: Coded Allergies: tobramycin (Verified Allergy, Severe, rash, 10/03/17) acetaminophen (Unverified Allergy, Unknown, CONFUSION, 10/03/17) codeine (Unverified Allergy, Unknown, CONFUSION, 10/03/17) CONFUSION furosemide (Unverified Allergy, Unknown, SWELLING, HIVES, 10/03/17) Physical Exam Vital Signs Vital Signs Date Time Temp Pulse Resp B/P (MAP) Pulse Ox O2 Delivery O2 Flow Rate FiO2 10/03/17 15:34 40 22 157/68 (97) 96 Room Air 10/03/17 11:46 97.9 40 20 126/60 (82) Physical Exam GENERAL: This is a well-nourished, well-developed patient, in no apparent distress. SKIN: No rashes, ecchymoses or lesions. Cool and dry. HEAD: Atraumatic. Normocephalic. No temporal or scalp tenderness. EYES: Pupils equal round and reactive. Extraocular motions intact. No scleral icterus. No injection or drainage. ENT: Nose without bleeding, purulent drainage or septal hematoma. Throat without erythema, tonsillar hypertrophy or exudate. Uvula midline. Airway patent. NECK: Trachea midline. No JVD or lymphadenopathy. Supple, nontender, no meningeal signs. CARDIOVASCULAR: Regular rate and rhythm without murmurs, gallops, or rubs. RESPIRATORY: Clear to auscultation. Breath sounds equal bilaterally. No wheezes , rales, or rhonchi. GASTROINTESTINAL: Abdomen soft, non-tender, nondistended. No hepato-splenomegaly , or palpable masses. No guarding. MUSCULOSKELETAL: Extremities without clubbing, cyanosis, or edema. No joint tenderness, effusion, or edema noted. No calf tenderness. Negative Homans sign bilaterally. NEUROLOGICAL: Awake and alert. Cranial nerves II through XII intact. Motor and sensory grossly within normal limits. Five out of 5 muscle strength in all muscle groups. Normal speech. Laboratory Laboratory Tests Test 10/03/17 13:48 White Blood Count 8.1 Red Blood Count 3.59 Hemoglobin 12.6 Hematocrit 36.3 Mean Corpuscular Volume 101.3 Mean Corpuscular Hemoglobin 35.2 Mean Corpuscular Hemoglobin Concent 34.8 Red Cell Distribution Width 13.9 Platelet Count 318 Mean Platelet Volume 6.8 Neutrophils (%) (Auto) 77.8 Lymphocytes (%) (Auto) 13.0 Monocytes (%) (Auto) 8.4 Eosinophils (%) (Auto) 0.4 Basophils (%) (Auto) 0.4 Neutrophils # (Auto) 6.3 Lymphocytes # (Auto) 1.1 Monocytes # (Auto) 0.7 Eosinophils # (Auto) 0.0 Basophils # (Auto) 0.0 CBC Comment DIFF FINAL Differential Comment Blood Urea Nitrogen 13 Creatinine 0.47 Random Glucose 91 Calcium Level 9.2 Sodium Level 126 Potassium Level 4.2 Chloride Level 92 Carbon Dioxide Level 26.7 Anion Gap 7 Estimat Glomerular Filtration Rate 125 Result Diagram: 10/03/17 1348 10/03/17 1348 Caprini VTE Risk Assessment Caprini Risk Assessment Model Point Value = 1 Point Value = 2 Point Value = 3 Point Value = 5 Age 41-60 Minor surgery BMI > 25 kg/m2 Swollen legs Varicose veins or History of unexplained or recurrent spontaneous Oral contraceptives or hormone replacement Sepsis (< 1 month) Serious lung disease, including pneumonia (< 1 month) Abnormal pulmonary function Acute myocardial infarction Congestive heart failure (< 1 month) History of inflammatory bowel disease Medical patient at bed rest Age 61-74 Arthroscopic surgery Major open surgery (> 45 min) Laparoscopic surgery (> 45 min) Malignancy Confined to bed (> 72 hours) Immobilizing plaster cast Central venous access Age >= 75 History of VTE Family history of VTE Factor V Leiden Prothrombin [id number] Lupus anticoagulant Anticardiolipin antibodies Elevated serum homocysteine Heparin-induced thrombocytopenia Other congenital or acquired thrombophilia Stroke (< 1 month) Elective arthroplasty Hip, pelvis, or leg fracture Acute spinal cord injury (< 1 month) Prophylaxis Regimen Total Risk Factor Score Risk Level Prophylaxis Regimen 0-1 Low Early ambulation 2 Moderate Order ONE of the following: *Sequential Compression Device (SCD) *Heparin 5000 units SQ BID 3-4 Higher Order ONE of the following medications: *Heparin 5000 units SQ TID *Enoxaparin/Lovenox 40 mg SQ daily (WT < 150 kg, CrCl > 30 mL/min) *Enoxaparin/Lovenox 30 mg SQ daily (WT < 150 kg, CrCl > 10-29 mL/min) *Enoxaparin/Lovenox 30 mg SQ BID (WT < 150 kg, CrCl > 30 mL/min) AND/OR *Sequential Compression Device (SCD) 5 or more Highest Order ONE of the following medications: *Heparin 5000 units SQ TID (Preferred with Epidurals) *Enoxaparin/Lovenox 40 mg SQ daily (WT < 150 kg, CrCl > 30 mL/min) *Enoxaparin/Lovenox 30 mg SQ daily (WT < 150 kg, CrCl > 10-29 mL/min) *Enoxaparin/Lovenox 30 mg SQ BID (WT < 150 kg, CrCl > 30 mL/min) AND *Sequential Compression Device (SCD) Physician Certification Order for Inpatient Services The services are ordered in accordance with Medicare regulations or non- Medicare payer requirements, as applicable. In the case of services not specified as inpatient-only, they are appropriately provided as inpatient services in accordance with the 2-midnight benchmark. days is the estimated time the patient will need to remain in the hospital, assuming treatment plan goals are met and no additional complications. Michelle Luu Oct 03, 2017 16:21
--- NOTE | 2017-10-03 16:24 | HHI.HP ---
HPI Service [facility] Hospitalists Primary Care Physician Edward Thomas D.O. Admission Diagnosis Hyponatremia generalized weakness Chief Complaint: weakness, couldn't get up and fell out of a chair Travel History International Travel<30 Days: No Contact w/Intl Traveler <30 Da: No Traveled to Known Affected Are: No History of Present Illness This is an 87 year old female patient with a past medical history which includes Atrial Fibrillation, bradycardia, CVA, HTN, hypothyroidism, dementia and remove history of seizure. Patient was recently in the hospital from - 09/22/17. Patient underwent closed reduction with pinning of right proximal humerus 09/21/[address] Nolen. On 08/28/17 patient was walking up stairs. She fell onto the chair that was on her right side. A closed right humerus fracture was found and patient being treated nonsurgically following with outpatient orthopedic surgery, Dr. Nolen. Today patient was at her home where she lives with her daughter and son-in-law. Patient was sitting in a chair, was unable to stand due to weakness and slumped out of the chair. Patient awake but most of the information gathered from daughter who is at bedside. Patient typically walks with a walker within the house. Daughter reports that the patient has been eating and drinking her normal amount, PO intake supplemented with protein drinks. Patient denies chest pain, shortness of breath, N/V/D/C, fevers or chills. Review of Systems Constitutional: DENIES: Fatigue, Fever, Chills Eyes: DENIES: Blurred vision, Diplopia, Vision loss Respiratory: DENIES: Cough, Sputum production, Shortness of breath Cardiovascular: DENIES: Chest pain, Palpitations, Dyspnea on Exertion, Lower Extremity Edema Gastrointestinal: DENIES: Abdominal pain, Constipation, Diarrhea Neurologic: COMPLAINS OF: Abnormal gait, Poor Balance, DENIES: Headache, Speech Problems Psychiatric: DENIES: Anxiety, Confusion, Depression Past Family Social History Past Medical History afib..slow ventricular response cva with tpa 2013 bradycardia..asx and evaluated by cardiology htn hypothyroidism dementia remote history of sz Past Surgical History hysterectomy remote injury/repair of LLE fx with chronic edema Reported Medications Tramadol (Tramadol HCl) 50 Mg Tab 50 Mg PO Q4H PRN Spironolactone 25 Mg Tab 12.5 Mg PO DAILY Amiloride-Hydrochlorothiazide (Amiloride/HCTZ) 5-50 Mg Tab 1 Tab PO DAILY Give with food. Tramadol (Tramadol HCl) 50 Mg Tab 50 Mg PO Q4H PRN Levothyroxine (Levothyroxine Sodium) 50 Mcg Tab 50 Mcg PO DAILY Divalproex ER (Divalproex Sodium) 250 Mg Mirza 250 Mg PO DAILY Allergies: Coded Allergies: tobramycin (Verified Allergy, Severe, rash, 10/03/17) acetaminophen (Unverified Allergy, Unknown, CONFUSION, 10/03/17) codeine (Unverified Allergy, Unknown, CONFUSION, 10/03/17) CONFUSION furosemide (Unverified Allergy, Unknown, SWELLING, HIVES, 10/03/17) Active Ordered Medications Current Medications Medications (Trade) Dose Ordered Sig/Bethanie Route Start Time Stop Time Status Last Admin (NS Flush) 2 ml UNSCH PRN IV FLUSH 10/03/17 16:15 (NS Flush) 2 ml BID IV FLUSH 10/03/17 21:00 (Tylenol) 650 mg Q4H PRN PO 10/03/17 16:15 (Zofran Inj) 4 mg Q6H PRN IVP 10/03/17 16:15 (Narcan Inj) 0.4 mg UNSCH PRN IV PUSH 10/03/17 16:15 (Milk Of Magnesia Liq) 30 ml Q12H PRN PO 10/03/17 16:15 (Ultram) 50 mg Q6H PRN PO 10/03/17 16:15 (Moduretic 5-50 Mg) 1 tab DAILY PO 10/04/17 09:00 UNV (Depakote Er) 250 mg DAILY PO 10/04/17 09:00 UNV (Synthroid) 50 mcg DAILY PO 10/04/17 09:00 UNV (Aldactone) 12.5 mg DAILY PO 10/04/17 09:00 (Eliquis) 5 mg BID PO 10/03/17 21:00 UNV Family History Noncontributory Social History Lives with her daughter and son-in-law No tobacco or alcohol use Physical Exam Vital Signs Vital Signs Date Time Temp Pulse Resp B/P (MAP) Pulse Ox O2 Delivery O2 Flow Rate FiO2 10/03/17 15:34 40 22 157/68 (97) 96 Room Air 10/03/17 11:46 97.9 40 20 126/60 (82) Physical Exam GENERAL: This is a frail elderly 87 year old female, in no apparent distress. SKIN: RLE dressing dry and intact HEAD: Atraumatic. Normocephalic. No temporal or scalp tenderness. EYES: Extraocular motions intact. No scleral icterus. No injection or drainage. ENT: Nose without bleeding, purulent drainage or septal hematoma. Throat without erythema, tonsillar hypertrophy or exudate. Uvula midline. Airway patent. NECK: Trachea midline. No JVD or lymphadenopathy. Supple, nontender, no meningeal signs. CARDIOVASCULAR: Bradycardia RESPIRATORY: Clear to auscultation. Breath sounds equal bilaterally. GASTROINTESTINAL: Abdomen soft, non-tender, nondistended. No guarding. MUSCULOSKELETAL: RUE in sling. Extremities without clubbing, cyanosis, or edema. NEUROLOGICAL: Awake and alert. No focal deficits noted. Motor and sensory grossly within normal limits. 3-4 out of 5 muscle strength in all muscle groups. Normal speech. Laboratory Laboratory Tests Test 10/03/17 13:48 White Blood Count 8.1 Red Blood Count 3.59 Hemoglobin 12.6 Hematocrit 36.3 Mean Corpuscular Volume 101.3 Mean Corpuscular Hemoglobin 35.2 Mean Corpuscular Hemoglobin Concent 34.8 Red Cell Distribution Width 13.9 Platelet Count 318 Mean Platelet Volume 6.8 Neutrophils (%) (Auto) 77.8 Lymphocytes (%) (Auto) 13.0 Monocytes (%) (Auto) 8.4 Eosinophils (%) (Auto) 0.4 Basophils (%) (Auto) 0.4 Neutrophils # (Auto) 6.3 Lymphocytes # (Auto) 1.1 Monocytes # (Auto) 0.7 Eosinophils # (Auto) 0.0 Basophils # (Auto) 0.0 CBC Comment DIFF FINAL Differential Comment Blood Urea Nitrogen 13 Creatinine 0.47 Random Glucose 91 Calcium Level 9.2 Sodium Level 126 Potassium Level 4.2 Chloride Level 92 Carbon Dioxide Level 26.7 Anion Gap 7 Estimat Glomerular Filtration Rate 125 Result Diagram: 10/03/17 1348 10/03/17 1348 Imaging Last Impressions Chest X-Ray 10/03/17 1608 Signed Impressions: Service Date/Time: Tuesday, October 03, 2017 16:18 - CONCLUSION: 1. Cardiomegaly and findings of vascular congestion without overt failure. This is new when compared with the prior exam. 2. Left lower lobe atelectasis versus pneumonia. Mina Hsieh MD Lower Extremity Ultrasound 10/03/17 1324 Signed Impressions: Service Date/Time: Tuesday, October 03, 2017 14:17 - CONCLUSION: 1. Findings consistent with bilateral posterior tibial (calf) vein DVTs. Kwame Rose MD Knee X-Ray 10/03/17 1144 Signed Impressions: Service Date/Time: Tuesday, October 03, 2017 12:49 - CONCLUSION: 1. Possible small joint effusion. 2. No evidence of acute fracture. 3. Severe bone demineralization. 4. Moderate arthropathy. Forest Dennis MD Femur X-Ray 10/03/17 1144 Signed Impressions: Service Date/Time: Tuesday, October 03, 2017 12:57 - CONCLUSION: 1. Significant decrease in bone mineralization. 2. No evidence of acute fracture. Forest Dennis MD Caprini VTE Risk Assessment Caprini VTE Risk Assessment: Mod/High Risk (score >= 2) Caprini Risk Assessment Model Point Value = 1 Point Value = 2 Point Value = 3 Point Value = 5 Age 41-60 Minor surgery BMI > 25 kg/m2 Swollen legs Varicose veins or History of unexplained or recurrent spontaneous Oral contraceptives or hormone replacement Sepsis (< 1 month) Serious lung disease, including pneumonia (< 1 month) Abnormal pulmonary function Acute myocardial infarction Congestive heart failure (< 1 month) History of inflammatory bowel disease Medical patient at bed rest Age 61-74 Arthroscopic surgery Major open surgery (> 45 min) Laparoscopic surgery (> 45 min) Malignancy Confined to bed (> 72 hours) Immobilizing plaster cast Central venous access Age >= 75 History of VTE Family history of VTE Factor V Leiden Prothrombin [id number] Lupus anticoagulant Anticardiolipin antibodies Elevated serum homocysteine Heparin-induced thrombocytopenia Other congenital or acquired thrombophilia Stroke (< 1 month) Elective arthroplasty Hip, pelvis, or leg fracture Acute spinal cord injury (< 1 month) Prophylaxis Regimen Total Risk Factor Score Risk Level Prophylaxis Regimen 0-1 Low Early ambulation 2 Moderate Order ONE of the following: *Sequential Compression Device (SCD) *Heparin 5000 units SQ BID 3-4 Higher Order ONE of the following medications: *Heparin 5000 units SQ TID *Enoxaparin/Lovenox 40 mg SQ daily (WT < 150 kg, CrCl > 30 mL/min) *Enoxaparin/Lovenox 30 mg SQ daily (WT < 150 kg, CrCl > 10-29 mL/min) *Enoxaparin/Lovenox 30 mg SQ BID (WT < 150 kg, CrCl > 30 mL/min) AND/OR *Sequential Compression Device (SCD) 5 or more Highest Order ONE of the following medications: *Heparin 5000 units SQ TID (Preferred with Epidurals) *Enoxaparin/Lovenox 40 mg SQ daily (WT < 150 kg, CrCl > 30 mL/min) *Enoxaparin/Lovenox 30 mg SQ daily (WT < 150 kg, CrCl > 10-29 mL/min) *Enoxaparin/Lovenox 30 mg SQ BID (WT < 150 kg, CrCl > 30 mL/min) AND *Sequential Compression Device (SCD) Assessment and Plan Problem List: (1) Hyponatremia ICD Codes: E87.1 - Hyponatremia Status: Chronic Plan: - Chronic in review of outpatient records baseline sodium between 127-130 - gentle IVF - encourage PO intake regular diet, pureed - serum osmosity and urine osmolality - recheck BMP in AM (2) Weakness ICD Codes: R53.1 - Weakness Status: Acute Plan: Patient with recent fall 08/28 causing fracture R humerus patient is s/p closed reduction with pinning of right proximal humerus and 09/21/17with Dr. Nolen - [facility] recommended at [place] of last hospitalization and family refused - patient now with generalized weakness and unable to stand from a chair - PT eval requested - consult Dr. Nolen - Femur x-ray reviewed significant decrease in bone mineralization. No evidence of acute fracture - R Knee x-ray reviewed possible small joint effusion. No evidence of acute fracture. Severe demineralization. (3) DVT (deep venous thrombosis) ICD Codes: I82.409 - Acute embolism and thrombosis of unspecified deep veins of unspecified lower extremity Status: Acute Plan: Bilateral occlusive lower extremity DVT - US reviewed and reveals: Right lower extremity occlusive thrombus in the posterior tibial vein. Left lower extremity occlusive thrombus in the posterior tibial vein - patient restarted Eliquis 1 week ago, increased does to 5 mg PO BID for treatment of DVT (4) Bradycardia ICD Codes: R00.1 - Bradycardia Status: Acute Plan: Afib Bradycardia - Rate is bradycardic chronically. - Cardiology has been consultation in the past regarding need for possible pacemaker, no PPM per cardiology 11/2016 - plan to discuss with cardiology tomorrow - continue telemetry Assessment and Plan Patient examined. Assessment and plan formulated with Michelle Luu PA-C. I agree with the above. recurrent hyponatremia w/u for SIADH IV NS repeat BMP in AM anticoagulate for DVTs Problem Qualifiers (1) DVT (deep venous thrombosis): Qualified Codes: I82.443 - Acute embolism and thrombosis of tibial vein, bilateral Michelle Luu Oct 03, 2017 16:24 Shin Tatum DO Oct 03, 2017 23:15
--- NOTE | 2017-10-03 16:38 | PD ---
Physical Exam Narrative GENERAL: Well-nourished, well-developed patient. SKIN: Warm and dry. HEAD: Normocephalic EYES: No injection or drainage. ENT: No nasal drainage noted. NECK: Supple, trachea midline. CARDIOVASCULAR: irregular rate and rhythm RESPIRATORY: no increased effort. No accessory muscle use. NEUROLOGICAL: Awake. moves extremities, brace noted to right arm. Normal speech. Data Data Last Documented VS Vital Signs Date Time Temp Pulse Resp B/P (MAP) Pulse Ox O2 Delivery O2 Flow Rate FiO2 10/03/17 15:34 40 22 157/68 (97) 96 Room Air 10/03/17 11:46 97.9 Orders Orders Femur (Ap & Lat/2vws) (10/03/17 11:44) Knee, Complete (4vws) (10/03/17 11:44) Ice/Cold Pack (10/03/17 11:44) Complete Blood Count With Diff (10/03/17 13:24) Basic Metabolic Panel (Bmp) (10/03/17 13:24) Coag Profile (10/03/17 13:24) Us Leg Venous Doppler Bilat (10/03/17 13:24) Tramadol-Acetamin 37.5-325 Mg (Ultracet (10/03/17 13:30) Iv Access Insert/Monitor (10/03/17 13:24) Urinalysis - C+S If Indicated (10/03/17 15:27) Electrocardiogram (10/03/17 ) Ct Brain W/O Iv Contrast(Rout) (10/03/17 ) Place In Observation (10/03/17 ) Code Status (10/03/17 16:08) Vital Signs (Adult) Q4H (10/03/17 16:08) Activity Oob With Assistance (10/03/17 16:08) Diet Heart Healthy (10/03/17 Dinner) Sodium Chloride 0.9% Flush (Ns Flush) (10/03/17 16:15) Sodium Chloride 0.9% Flush (Ns Flush) (10/03/17 21:00) Acetaminophen (Tylenol) (10/03/17 16:15) Ondansetron Inj (Zofran Inj) (10/03/17 16:15) Basic Metabolic Panel (Bmp) (10/04/17 06:00) Complete Blood Count With Diff (10/04/17 06:00) Chest, Single Ap (10/03/17 16:08) Electrocardiogram (10/03/17 16:08) Pt Request For Service (10/03/17 16:08) Scd Bilateral/Knee High KUSUM.BID (10/03/17 16:08) Naloxone Inj (Narcan Inj) (10/03/17 16:15) Magnesium Hydroxide Liq (Milk Of Magnesi (10/03/17 16:15) Enoxaparin Inj (Lovenox Inj) (10/03/17 17:00) Tramadol (Ultram) (10/03/17 16:15) Amiloride/Hctz 5-50 Mg Tab (Moduretic 5- (10/04/17 09:00) Divalproex Er (Depakote Er) (10/04/17 09:00) Levothyroxine (Synthroid) (10/04/17 09:00) Spironolactone (Aldactone) (10/04/17 09:00) Apixaban (Eliquis) (10/03/17 21:00) Admit Order (Ed Use Only) (10/03/17 16:24) Labs Laboratory Tests Test 10/03/17 13:48 White Blood Count 8.1 TH/MM3 Red Blood Count 3.59 MIL/MM3 Hemoglobin 12.6 GM/DL Hematocrit 36.3 % Mean Corpuscular Volume 101.3 FL Mean Corpuscular Hemoglobin 35.2 PG Mean Corpuscular Hemoglobin Concent 34.8 % Red Cell Distribution Width 13.9 % Platelet Count 318 TH/MM3 Mean Platelet Volume 6.8 FL Neutrophils (%) (Auto) 77.8 % Lymphocytes (%) (Auto) 13.0 % Monocytes (%) (Auto) 8.4 % Eosinophils (%) (Auto) 0.4 % Basophils (%) (Auto) 0.4 % Neutrophils # (Auto) 6.3 TH/MM3 Lymphocytes # (Auto) 1.1 TH/MM3 Monocytes # (Auto) 0.7 TH/MM3 Eosinophils # (Auto) 0.0 TH/MM3 Basophils # (Auto) 0.0 TH/MM3 CBC Comment DIFF FINAL Differential Comment Blood Urea Nitrogen 13 MG/DL Creatinine 0.47 MG/DL Random Glucose 91 MG/DL Calcium Level 9.2 MG/DL Sodium Level 126 MEQ/L Potassium Level 4.2 MEQ/L Chloride Level 92 MEQ/L Carbon Dioxide Level 26.7 MEQ/L Anion Gap 7 MEQ/L Estimat Glomerular Filtration Rate 125 ML/MIN [facility] Supervised Visit with GRZEGORZ: Yes Interpretation(s) Last 24 hours Impressions Lower Extremity Ultrasound 10/03/17 1324 Signed Impressions: Service Date/Time: Tuesday, October 03, 2017 14:17 - CONCLUSION: 1. Findings consistent with bilateral posterior tibial (calf) vein DVTs. Kwame Rose MD Knee X-Ray 10/03/17 1144 Signed Impressions: Service Date/Time: Sunday, October 03, 2017 12:49 - CONCLUSION: 1. Possible small joint effusion. 2. No evidence of acute fracture. 3. Severe bone demineralization. 4. Moderate arthropathy. Forest Dennis MD Femur X-Ray 10/03/17 1144 Signed Impressions: Service Date/Time: Tuesday, October 03, 2017 12:57 - CONCLUSION: 1. Significant decrease in bone mineralization. 2. No evidence of acute fracture. Forest Dennis MD Narrative Course Patient transferred from ambulance [facility], additional test added on. Workup found to have bilateral tibial DVTs. Daughter states the patient has been back on Eliquis for one week. She was updated and agrees to admission. Physician Communication Physician Communication dr daniel agrees to admit Diagnosis Primary Impression: DVT (deep venous thrombosis) Qualified Codes: I82.443 - Acute embolism and thrombosis of tibial vein, bilateral Additional Impressions: Atrial fibrillation with slow ventricular response Weakness Fall Qualified Codes: W19.XXXA - Unspecified fall, initial encounter Hyponatremia Admitting Information Admitting Physician Requests: Observation Tatiana Lobo MD Oct 03, 2017 16:38
[2017-10-03] MEDS ORDERED: ENOXAPARIN SODIUM 60 MG/0.6 ML SYRINGE SQ SCH (17:00)
--- NOTE | 2017-10-03 17:04 | RADRPT ---
EXAM DATE/TIME: 10/03/2017 16:18 [facility] COMPARISON: CHEST SINGLE AP, September 21, 2017, 11:03. INDICATIONS : Weakness MEDICAL HISTORY : Congestive heart failure. broken right shoulder 08/2017 SURGICAL HISTORY : right shoulder surgery 08/2017 ENCOUNTER: Initial ACUITY: 1 day PAIN SCORE: 0/10 LOCATION: Bilateral chest FINDINGS: The cardiac silhouette is enlarged in transverse diameter. There is prominence of the central pulmona ry vasculature with indistinct vascular margins compatible with vascular congestion but no evidence o f overt failure. There is left lower lobe atelectasis versus pneumonia. A small left sided effusion i s present. There is pinning of a fracture of the right humeral neck CONCLUSION: 1. Cardiomegaly and findings of vascular congestion without overt failure. This is new when compared with the prior exam. 2. Left lower lobe atelectasis versus pneumonia. Mina Hsieh MD on October 03, 2017 at 17:02 Board Certified Radiologist. This report was verified electronically.
[2017-10-03 18:44] LABS: APTT (PATIENT) 28.1 SEC (24.3-30.1); INTERNATIONAL NORMALIZED RATIO 1.1 RATIO; PROTHROMBIN TIME - PATIENT 10.8 SEC (9.8-11.6)
--- NOTE | 2017-10-03 20:16 | RADRPT ---
EXAM DATE/TIME: 10/03/2017 19:54 [facility] COMPARISON: CT BRAIN W/O CONTRAST, December 05, 2016, 20:57. INDICATIONS : Weakness with altered mental status. RADIATION DOSE: 56.35 CTDIvol (mGy) MEDICAL HISTORY : Dementia. Seizures. Cardiovascular diseaseHypertension SURGICAL HISTORY : None. ENCOUNTER: Initial ACUITY: 1 day PAIN SCALE: 0/10 LOCATION: cranial TECHNIQUE: Multiple contiguous axial images were obtained of the head. Using automated exposure control and adjustment of the mA and/or kV according to patient size, radiation dose was kept as low as reasonably achievable to obtain optimal diagnostic quality images. DICOM format image data is av ailable electronically for review and comparison. FINDINGS: CEREBRUM: Diffuse cerebral atrophy is noted. Moderate periventricular and subcortical white matte r small vessel ischemic changes are noted bilaterally. No evidence of midline shift, mass lesion, hem orrhage or acute infarction. No extra-axial fluid collections are seen. POSTERIOR FOSSA: The cerebellum and brainstem are intact. The 4th ventricle is midline. The cer ebellopontine angle is unremarkable. EXTRACRANIAL: The visualized portion of the orbits is intact. Mucosal thickening is noted within the right sphenoid sinus. SKULL: The calvaria is intact. No evidence of skull fracture. CONCLUSION: 1. Moderate periventricular and subcortical white matter small vessel ischemic changes bilaterally. 2. Diffuse cerebral atrophy. 3. No acute infarct, acute hemorrhage, mass effect or extra axial fluid collections. 4. Mucosal thickening within the right sphenoid sinus. Harshal Winters MD on October 03, 2017 at 20:13 Board Certified Radiologist. This report was verified electronically.
[2017-10-03] MEDS: SODIUM CHLORIDE 0.9% FLUSH 10 ML FLUSH IV FLUSH SCH (21:04)
[2017-10-03] MEDS: APIXABAN 5 MG TABLET PO SCH (21:04)
[2017-10-03 21:21] VITALS: BP 117/59; PULSE 49; RESP 18; TEMP 97; O2SAT 95
[2017-10-04 00:21] VITALS: BP 130/60; PULSE 41; RESP 18; TEMP 98; O2SAT 93
[2017-10-04] MEDS: traMADol HCL 50 MG TAB PO PRN ×3 (02:17→20:34)
[2017-10-04 05:01] VITALS: BP 118/67; PULSE 68; RESP 18; TEMP 98.4; O2SAT 97
[2017-10-04] MEDS: LEVOTHYROXINE SODIUM 50 MCG TAB PO SCH (05:48)
[2017-10-04 07:27] VITALS: BP 125/65; PULSE 47; RESP 18; TEMP 98; O2SAT 96
[2017-10-04 07:35] LABS: AUTOMATED NEUTROPHIL # 5.8 TH/MM3 (1.8-7.7); BASOPHIL % 0.5 % (0.0-2.0); EOSINOPHIL # 0.1 TH/MM3 (0-0.4); EOSINOPHIL % 0.8 % (0.0-4.0); HEMO FLAGS DIFF FINAL; LYMPH % 14.4 % (9.0-44.0); LYMPHOCYTE # 1.1 TH/MM3 (1.0-4.8); MEAN CELL VOLUME 102.3 FL (80.0-100.0); MEAN CORPUSCULAR HEMOGLOBIN 35.5 PG (27.0-34.0); MEAN CORPUSCULAR HGB CONC 34.7 % (32.0-36.0); MONO % 11.6 % (0.0-8.0); NEUT % 72.7 % (16.0-70.0); PLATELET COUNT 276 TH/MM3 (150-450); RED BLOOD COUNT 3.32 MIL/MM3 (4.00-5.30); RED CELL DISTRIBUTION WIDTH 13.9 % (11.6-17.2)
[2017-10-04 07:57] LABS: BICARBONATE 26.1 MEQ/L (21.0-32.0); POTASSIUM 4.1 MEQ/L (3.5-5.1)
[2017-10-04] MEDS: SPIRONOLACTONE 25 MG TAB PO SCH (10:07)
[2017-10-04] MEDS: APIXABAN 5 MG TABLET PO SCH ×2 (10:08→20:34)
[2017-10-04] MEDS: aMILoride/HCTZ 5 MG/50 MG TAB PO SCH (10:08)
[2017-10-04] MEDS: DIVALPROEX SODIUM E.R. 250 MG TAB PO SCH (10:08)
[2017-10-04] MEDS: SODIUM CHLORIDE 0.9% FLUSH 10 ML FLUSH IV FLUSH SCH ×2 (10:09→20:34)
[2017-10-04 10:47] LABS: BACTERIA, URINE MANY /hpf; BLOOD, URINE MOD (NEG); COMMENT (UR) CULTURE INDICATED; CULTURE IF INDICATED CULTURE INDICATED; GLUCOSE,URINE NEG (NEG); KETONE, URINE NEG (NEG); MUCUS URINE FEW /lpf (OCC); NITRITE,URINE POS (NEG); SQUAMOUS EPITHELIAL CELL URINE 2 /hpf (0-5); URINE COLOR YELLOW (YELLW/STRAW)
[2017-10-04 11:32] VITALS: BP 114/59; PULSE 36; RESP 19; TEMP 98.2; O2SAT 94
--- NOTE | 2017-10-04 13:32 | HHI.PR ---
Subjective Remarks No new complaints. Objective Vitals Vital Signs Date Time Temp Pulse Resp B/P (MAP) Pulse Ox O2 Delivery O2 Flow Rate FiO2 10/04/17 11:32 98.2 36 19 114/59 (77) 94 10/04/17 07:27 98.0 47 18 125/65 (85) 96 10/04/17 05:01 98.4 68 18 118/67 (84) 97 10/04/17 00:21 98.0 41 18 130/60 (83) 93 10/03/17 21:21 97.0 49 18 117/59 (78) 95 10/03/17 17:59 41 22 97 10/03/17 15:34 40 22 157/68 (97) 96 Room Air 10/04/17 10/04/17 10/05/17 15:00 23:00 07:00 Intake Total 720 ml Balance 720 ml Intake Oral 720 ml # Voids 2 Result Diagram: 10/04/17 0630 10/04/17 0620 Imaging Last Impressions Chest X-Ray 10/03/17 1608 Signed Impressions: Service Date/Time: Tuesday, October 03, 2017 16:18 - CONCLUSION: 1. Cardiomegaly and findings of vascular congestion without overt failure. This is new when compared with the prior exam. 2. Left lower lobe atelectasis versus pneumonia. Mina Hsieh MD Lower Extremity Ultrasound 10/03/17 1324 Signed Impressions: Service Date/Time: Tuesday, October 03, 2017 14:17 - CONCLUSION: 1. Findings consistent with bilateral posterior tibial (calf) vein DVTs. Kwame Rose MD Knee X-Ray 10/03/17 1144 Signed Impressions: Service Date/Time: Tuesday, October 03, 2017 12:49 - CONCLUSION: 1. Possible small joint effusion. 2. No evidence of acute fracture. 3. Severe bone demineralization. 4. Moderate arthropathy. Forest Dennis MD Femur X-Ray 10/03/17 1144 Signed Impressions: Service Date/Time: Tuesday, October 03, 2017 12:57 - CONCLUSION: 1. Significant decrease in bone mineralization. 2. No evidence of acute fracture. Forest Dennis MD Objective Remarks GENERAL: NAD, A&Ox2 CARDIOVASCULAR: regular, bradycardic RESPIRATORY: Clear to auscultation. Breath sounds equal bilaterally. No wheezes , rales, or rhonchi. GASTROINTESTINAL: Abdomen soft, non-tender, nondistended. Normal active bowel sounds MUSCULOSKELETAL: Extremities without clubbing, cyanosis, or edema. NEURO: Alert & Oriented x4 to person, place, time, situation. Moves all ext x4 A/P Problem List: (1) Hyponatremia ICD Codes: E87.1 - Hyponatremia Status: Chronic Plan: - Chronic in review of outpatient records baseline sodium between 127-130 - continue gentle IVF - encourage PO intake regular diet, pureed - likely nutritional, r/o SIADH - serum osmosity and urine osmolality --> still pending, called the lab to request study - recheck BMP in AM - observe for volume overload - PT - supportive care - DVT prophylaxis - anticipate discharge in 1-2 days (2) Weakness ICD Codes: R53.1 - Weakness Status: Acute Plan: Patient with recent fall 08/28 causing fracture R humerus patient is s/p closed reduction with pinning of right proximal humerus and 09/21/17with Dr. Nolen - SNF recommended at [place] of last hospitalization and family refused - patient now with generalized weakness and unable to stand from a chair - consult Dr. Nolen - R Femur x-ray reviewed significant decrease in bone mineralization. No evidence of acute fracture - R Knee x-ray reviewed possible small joint effusion. No evidence of acute fracture. Severe demineralization. - PT - Pt would benefit from SNF upon discharge. I will again offer this to pt/ family (3) DVT (deep venous thrombosis) ICD Codes: I82.409 - Acute embolism and thrombosis of unspecified deep veins of unspecified lower extremity Status: Acute Plan: Bilateral occlusive lower extremity DVT - US reviewed and reveals: Right lower extremity occlusive thrombus in the posterior tibial vein. Left lower extremity occlusive thrombus in the posterior tibial vein - patient restarted Eliquis 1 week ago, increased does to 5 mg PO BID for treatment of DVT (4) Bradycardia ICD Codes: R00.1 - Bradycardia Status: Acute Plan: Afib Bradycardia - Rate is bradycardic chronically. - Cardiology has been consultation in the past regarding need for possible pacemaker, no PPM per cardiology 11/2016 - Case d/w pt's [employer]iance Coordinator, Dr. Bradford. He will review records/previous w/u - Pt many NOT be a candidate d/t pt's concomitant medical problems, dementia, and advanced age. Problem Qualifiers (1) DVT (deep venous thrombosis): Qualified Codes: I82.443 - Acute embolism and thrombosis of tibial vein, bilateral Shin Tatum DO Oct 04, 2017 13:32
[2017-10-04] MEDS: SODIUM CHLOR 0.9% 1000 ML INJ 1,000 ML IV SCH (14:10)
[2017-10-04] MEDS: cefTRIAXone INJ 1,000 MG in SODIUM CHLORIDE 0.9% INJ 100 ML IV SCH (14:10)
[2017-10-04 15:17] VITALS: BP 116/66; PULSE 46; RESP 17; TEMP 98.2; O2SAT 96
--- NOTE | 2017-10-04 17:21 | EKG ---
Date Performed: 10/03/2017 Time Performed: 15:42:53 PTAGE: 87 years EKG: ATRIAL FIBRILLATION WITH SLOW VENTRICULAR RESPONSE MARKED RIGHT AXIS DEVIATION RIGHT BUNDLE BRANCH BLOCK Prolonged corrected QT interval. ABNORMAL ECG PREVIOUS TRACING : 09/21/2017 10.52 DOCTOR: Orion Chapman Interpretating Date/Time 10/04/2017 17:19:46
[2017-10-04 20:09] VITALS: BP 137/61; PULSE 54; RESP 18; TEMP 99.2; O2SAT 95
[2017-10-04] MEDS ORDERED: MIRTAZAPINE 15 MG TAB PO SCH (21:00)
--- NOTE | 2017-10-04 22:59 | PD.ORT.PN ---
Subjective Subjective Remarks pt admitted with hyponatremia. no CP/SOB Objective Vitals Vital Signs Date Time Temp Pulse Resp B/P (MAP) Pulse Ox O2 Delivery O2 Flow Rate FiO2 10/04/17 20:09 99.2 54 18 137/61 (86) 95 10/04/17 15:17 98.2 46 17 116/66 (83) 96 10/04/17 11:32 98.2 36 19 114/59 (77) 94 10/04/17 07:27 98.0 47 18 125/65 (85) 96 10/04/17 05:01 98.4 68 18 118/67 (84) 97 10/04/17 00:21 98.0 41 18 130/60 (83) 93 I/O 10/03/17 10/03/17 10/03/17 10/04/17 10/04/17 10/04/17 07:00 15:00 23:00 07:00 15:00 23:00 Intake Total 720 ml Balance 720 ml Intake Oral 720 ml # Voids 2 Result Diagram: 10/04/17 0630 10/04/17 0620 Objective Remarks sleepy. demented RUE in sling. dressing CDI on the shoulder. forearm dressing is soild but dry. diffuse RUE edema Assessment & Plan Assessment and Plan right proximal humerus CR and pin 09/22 Admitted for hyponatremia medical management NWB RUE dressing change q 2days in shoulder and forearm no RUE ROM. sling at all times xrays and possible dc pins next week 10/11 Discussed with daughter f/u ortho outpatient 1 week, otherwise i will see if still hospitalized next week Cameron Nolen Jr., MD Oct 04, 2017 22:59
[2017-10-05 00:15] VITALS: BP 131/61; PULSE 60; RESP 20; TEMP 98.3; O2SAT 96
[2017-10-05 04:14] VITALS: BP 140/65; PULSE 46; RESP 20; TEMP 97.9; O2SAT 93
[2017-10-05] MEDS: LEVOTHYROXINE SODIUM 50 MCG TAB PO SCH ×2 (04:37→05:50)
[2017-10-05 06:41] LABS: BICARBONATE 26.5 MEQ/L (21.0-32.0)
[2017-10-05 06:43] LABS: POTASSIUM 4.8 MEQ/L (3.5-5.1)
[2017-10-05 08:00] VITALS: BP 120/58; PULSE 54; RESP 20; TEMP 99; O2SAT 94
[2017-10-05] MEDS: SODIUM CHLORIDE 0.9% FLUSH 10 ML FLUSH IV FLUSH SCH (09:00)
[2017-10-05] MEDS ORDERED: MIRTA15 PO (10:02)
[2017-10-05] MEDS ORDERED: SODI1TAB PO ×2 (10:02→12:31)
[2017-10-05] MEDS ORDERED: APIX5TAB PO (10:02)
[2017-10-05] MEDS: SPIRONOLACTONE 25 MG TAB PO SCH (10:05)
[2017-10-05] MEDS: aMILoride/HCTZ 5 MG/50 MG TAB PO SCH (10:05)
[2017-10-05] MEDS: DIVALPROEX SODIUM E.R. 250 MG TAB PO SCH (10:05)
[2017-10-05] MEDS: APIXABAN 5 MG TABLET PO SCH (10:05)
[2017-10-05] MEDS ORDERED: CIPR250T52 PO (10:18)
[2017-10-05 12:00] VITALS: BP 116/55; PULSE 55; RESP 20; TEMP 98.5; O2SAT 97
[2017-10-05] MEDS ORDERED: SODIUM CHLORIDE 1 GRAM TAB PO ONE (12:30)
--- NOTE | 2017-10-05 12:37 | HHI.DS ---
Discharge Summary Admission Date Oct 03, 2017 at 16:26 Discharge Date: Oct 05, 2017 Admitting Diagnosis Hyponatremia generalized weakness (1) Hyponatremia ICD Codes: E87.1 - Hyponatremia Status: Chronic (2) Weakness ICD Codes: R53.1 - Weakness Status: Acute (3) DVT (deep venous thrombosis) ICD Codes: I82.409 - Acute embolism and thrombosis of unspecified deep veins of unspecified lower extremity Status: Acute (4) Bradycardia ICD Codes: R00.1 - Bradycardia Status: Acute Consultants Dr. Nolen Procedures none Brief History This is an 87 year old female patient with a past medical history which includes Atrial Fibrillation, bradycardia, CVA, HTN, hypothyroidism, dementia and remove history of seizure. Patient was recently in the hospital from - 09/22/17. Patient underwent closed reduction with pinning of right proximal humerus 09/21/[address] Nolen. On 08/28/17 patient was walking up stairs. She fell onto the chair that was on her right side. A closed right humerus fracture was found and patient being treated nonsurgically following with outpatient orthopedic surgery, Dr. Nolen. Today patient was at her home where she lives with her daughter and son-in-law. Patient was sitting in a chair, was unable to stand due to weakness and slumped out of the chair. Patient awake but most of the information gathered from daughter who is at bedside. Patient typically walks with a walker within the house. Daughter reports that the patient has been eating and drinking her normal amount, PO intake supplemented with protein drinks. Patient denies chest pain, shortness of breath, N/V/D/C, fevers or chills. CBC/BMP: 10/04/17 0630 10/05/17 0447 Significant Findings Laboratory Tests Test 10/03/17 13:48 10/03/17 17:46 10/04/17 06:20 10/04/17 06:30 Red Blood Count 3.59 MIL/MM3 (4.00-5.30) 3.32 MIL/MM3 (4.00-5.30) Mean Corpuscular Volume 101.3 FL (80.0-100.0) 102.3 FL (80.0-100.0) Mean Corpuscular Hemoglobin 35.2 PG (27.0-34.0) 35.5 PG (27.0-34.0) Mean Platelet Volume 6.8 FL (7.0-11.0) Neutrophils (%) (Auto) 77.8 % (16.0-70.0) 72.7 % (16.0-70.0) Monocytes (%) (Auto) 8.4 % (0.0-8.0) 11.6 % (0.0-8.0) Creatinine 0.47 MG/DL (0.50-1.00) 0.42 MG/DL (0.50-1.00) Sodium Level 126 MEQ/L (136-145) 127 MEQ/L (136-145) Chloride Level 92 MEQ/L (98-107) 96 MEQ/L (98-107) Serum Osmolality 269 MOSM/KG (275-295) Hematocrit 34.0 % (35.0-46.0) Test 10/04/17 10:27 10/05/17 04:47 Urine Turbidity CLOUDY (CLEAR) Urine Protein 30 mg/dL (NEG-TRACE) Urine Occult Blood MOD (NEG) Urine Nitrite POS (NEG) Urine Leukocyte Esterase LARGE (NEG) Urine RBC 57 /hpf (0-3) Urine WBC Clumps MANY (NONE) Urine Bacteria MANY /hpf (NONE) Urine Mucus FEW /lpf (OCC) Creatinine 0.46 MG/DL (0.50-1.00) Sodium Level 129 MEQ/L (136-145) Chloride Level 96 MEQ/L (98-107) Imaging Last Impressions Chest X-Ray 10/03/17 1608 Signed Impressions: Service Date/Time: Tuesday, October 03, 2017 16:18 - CONCLUSION: 1. Cardiomegaly and findings of vascular congestion without overt failure. This is new when compared with the prior exam. 2. Left lower lobe atelectasis versus pneumonia. Mina Hsieh MD Lower Extremity Ultrasound 10/03/17 1324 Signed Impressions: Service Date/Time: Tuesday, October 03, 2017 14:17 - CONCLUSION: 1. Findings consistent with bilateral posterior tibial (calf) vein DVTs. Kwame Rose MD Knee X-Ray 10/03/17 1144 Signed Impressions: Service Date/Time: Tuesday, October 03, 2017 12:49 - CONCLUSION: 1. Possible small joint effusion. 2. No evidence of acute fracture. 3. Severe bone demineralization. 4. Moderate arthropathy. Forest Dennis MD Femur X-Ray 10/03/17 1144 Signed Impressions: Service Date/Time: Tuesday, October 03, 2017 12:57 - CONCLUSION: 1. Significant decrease in bone mineralization. 2. No evidence of acute fracture. Forest Dennis MD Head CT 10/03/17 0000 Signed Impressions: Service Date/Time: Tuesday, October 03, 2017 19:54 - CONCLUSION: 1. Moderate periventricular and subcortical white matter small vessel ischemic changes bilaterally. 2. Diffuse cerebral atrophy. 3. No acute infarct, acute hemorrhage, mass effect or extra axial fluid collections. 4. Mucosal thickening within the right sphenoid sinus. Harshal Winters MD PE at Discharge GENERAL: NAD, A&Ox2 CARDIOVASCULAR: regular, bradycardic RESPIRATORY: Clear to auscultation. Breath sounds equal bilaterally. No wheezes , rales, or rhonchi. GASTROINTESTINAL: Abdomen soft, non-tender, nondistended. Normal active bowel sounds MUSCULOSKELETAL: Extremities without clubbing, cyanosis, or edema. NEURO: Alert & Oriented x4 to person, place, time, situation. Moves all ext x4 Hospital Course Hyponatremia - Chronic in review of outpatient records baseline sodium between 127-130 - continue gentle IVF - encourage PO intake regular diet, pureed - likely nutritional, r/o SIADH - serum osmosity 269, urine osmolality 456 and urine [id number] - Na on admission 126 -> (10/04) 127 -> (10/05) 129 - start sodium tablets 1 gram PO BID - observe for volume overload - PT - supportive care - DVT prophylaxis Weakness Patient with recent fall 08/28 causing fracture R humerus patient is s/p closed reduction with pinning of right proximal humerus and 09/21/17with Dr. Nolen - SNF recommended at [place] of last hospitalization and family refused - patient now with generalized weakness and unable to stand from a chair - consult Dr. Nolen - R Femur x-ray reviewed significant decrease in bone mineralization. No evidence of acute fracture - R Knee x-ray reviewed possible small joint effusion. No evidence of acute fracture. Severe demineralization. - Orthopedic surgery recommending: NWB RUE dressing change q 2days in shoulder and forearm no RUE ROM. sling at all times xrays and possible dc pins next week 12/14 f/u ortho outpatient 1 week, otherwise i will see if still hospitalized next week - PT recommending rehab - Pt would benefit from SNF upon discharge, family admirably refusing DVT (deep venous thrombosis) Bilateral occlusive lower extremity DVT - US reviewed and reveals: Right lower extremity occlusive thrombus in the posterior tibial vein. Left lower extremity occlusive thrombus in the posterior tibial vein - patient restarted Eliquis 1 week ago, increased does to 5 mg PO BID for treatment of DVT Afib Bradycardia - Rate is bradycardic chronically. - Cardiology has been consultation in the past regarding need for possible pacemaker, no PPM per cardiology 11/2016 - Case d/w pt's [employer], Dr. Bradford. He will review records/previous w/u - Pt many NOT be a candidate d/t pt's concomitant medical problems, dementia, and advanced age. Pt Condition on Discharge: Deteriorating Discharge Disposition: Hospice/ Home Discharge Instructions DIET: Follow Instructions for: As Tolerated, No Restrictions Activities you can perform: Regular-No Restrictions, See Additionl Instruction Other Activity Instructions: NWB RUE dressing change q 2days in shoulder and forearm no RUE ROM. sling at all times Follow up Referrals: Orthopedics - 1 Week with Cameron Nolen Jr., MD PCP Follow-up - [address] Thomas New Medications: Ciprofloxacin (Cipro) 250 Mg Tab 250 MG PO BID for Infection for 3 Days, #6 TAB 0 Refills Sodium Chloride (Sodium Chloride) 1 Gram Tab 1 GM PO BID for Electrolyte Replacement, #30 TAB 0 Refills Apixaban (Eliquis) 5 Mg Tab 5 MG PO BID for DVT, #60 TAB 0 Refills Mirtazapine (Mirtazapine) 15 Mg Tab 15 MG PO HS for appetite, #30 TAB 0 Refills Continued Medications: Amiloride-Hydrochlorothiazide (Amiloride-Hydrochlorothiazide) 5-50 Mg Tab 1 TAB PO DAILY for Blood Pressure Management, #30 TAB 0 Refills Give with food. Divalproex ER (Divalproex ER) 250 Mg Mirza 250 MG PO DAILY for Control Seizures, #30 TAB 0 Refills Levothyroxine (Levothyroxine) 50 Mcg Tab 50 MCG PO DAILY for Thyroid, #30 TAB 0 Refills Spironolactone (Spironolactone) 25 Mg Tab 12.5 MG PO DAILY, #15 TAB 0 Refills Tramadol (Tramadol) 50 Mg Tab 50 MG PO Q4H PRN for PAIN, #30 TAB 0 Refills Discontinued Medications: Tramadol (Tramadol) 50 Mg Tab 50 MG PO Q4H PRN for PAIN, TAB 0 Refills Michelle Luu Oct 05, 2017 12:37
--- NOTE | 2017-10-05 12:38 | HHI.PR ---
Subjective Remarks Patient resting in bed appears weak offers no complaints at this time Objective Vitals Vital Signs Date Time Temp Pulse Resp B/P (MAP) Pulse Ox O2 Delivery O2 Flow Rate FiO2 10/05/17 12:00 98.5 55 20 116/55 (75) 97 10/05/17 08:00 99.0 54 20 120/58 (78) 94 10/05/17 04:14 97.9 46 20 140/65 (90) 93 10/05/17 00:15 98.3 60 20 131/61 (84) 96 10/04/17 20:09 99.2 54 18 137/61 (86) 95 10/04/17 15:17 98.2 46 17 116/66 (83) 96 Result Diagram: 10/04/17 0630 10/05/17 0447 Other Results Laboratory Tests Test 10/03/17 13:48 10/03/17 17:46 10/04/17 06:20 10/04/17 06:30 White Blood Count 8.1 TH/MM3 8.0 TH/MM3 Red Blood Count 3.59 MIL/MM3 3.32 MIL/MM3 Hemoglobin 12.6 GM/DL 11.8 GM/DL Hematocrit 36.3 % 34.0 % Mean Corpuscular Volume 101.3 FL 102.3 FL Mean Corpuscular Hemoglobin 35.2 PG 35.5 PG Mean Corpuscular Hemoglobin Concent 34.8 % 34.7 % Red Cell Distribution Width 13.9 % 13.9 % Platelet Count 318 TH/MM3 276 TH/MM3 Mean Platelet Volume 6.8 FL 7.1 FL Neutrophils (%) (Auto) 77.8 % 72.7 % Lymphocytes (%) (Auto) 13.0 % 14.4 % Monocytes (%) (Auto) 8.4 % 11.6 % Eosinophils (%) (Auto) 0.4 % 0.8 % Basophils (%) (Auto) 0.4 % 0.5 % Neutrophils # (Auto) 6.3 TH/MM3 5.8 TH/MM3 Lymphocytes # (Auto) 1.1 TH/MM3 1.1 TH/MM3 Monocytes # (Auto) 0.7 TH/MM3 0.9 TH/MM3 Eosinophils # (Auto) 0.0 TH/MM3 0.1 TH/MM3 Basophils # (Auto) 0.0 TH/MM3 0.0 TH/MM3 CBC Comment DIFF FINAL DIFF FINAL Differential Comment Blood Urea Nitrogen 13 MG/DL 15 MG/DL Creatinine 0.47 MG/DL 0.42 MG/DL Random Glucose 91 MG/DL 83 MG/DL Calcium Level 9.2 MG/DL 8.6 MG/DL Sodium Level 126 MEQ/L 127 MEQ/L Potassium Level 4.2 MEQ/L 4.1 MEQ/L Chloride Level 92 MEQ/L 96 MEQ/L Carbon Dioxide Level 26.7 MEQ/L 26.1 MEQ/L Anion Gap 7 MEQ/L 5 MEQ/L Estimat Glomerular Filtration Rate 125 ML/MIN 142 ML/MIN Prothrombin Time 10.8 SEC Prothromb Time International Ratio 1.1 RATIO Activated Partial Thromboplast Time 28.1 SEC Serum Osmolality 269 MOSM/KG Test 10/04/17 10:27 10/05/17 04:47 Urine Color YELLOW Urine Turbidity CLOUDY Urine pH 6.0 Urine Specific [place] 1.019 Urine Protein 30 mg/dL Urine Glucose (UA) NEG mg/dL Urine Ketones NEG mg/dL Urine Occult Blood MOD Urine Nitrite POS Urine Bilirubin NEG Urine Urobilinogen LESS THAN 2.0 MG/DL Urine Leukocyte Esterase LARGE Urine RBC 57 /hpf Urine WBC /hpf Urine WBC Clumps MANY Urine Squamous Epithelial Cells 2 /hpf Urine Bacteria MANY /hpf Urine Mucus FEW /lpf Microscopic Urinalysis Comment CULTURE INDICATED Urine Osmolality 456 MOSM/KG Urine Random Sodium 14 MEQ/L Urine Random Chloride 16 MEQ/L Blood Urea Nitrogen 14 MG/DL Creatinine 0.46 MG/DL Random Glucose 77 MG/DL Calcium Level 8.9 MG/DL Sodium Level 129 MEQ/L Potassium Level 4.8 MEQ/L Chloride Level 96 MEQ/L Carbon Dioxide Level 26.5 MEQ/L Anion Gap 7 MEQ/L Estimat Glomerular Filtration Rate 128 ML/MIN Imaging Last Impressions Chest X-Ray 10/03/17 1608 Signed Impressions: Service Date/Time: Tuesday, October 03, 2017 16:18 - CONCLUSION: 1. Cardiomegaly and findings of vascular congestion without overt failure. This is new when compared with the prior exam. 2. Left lower lobe atelectasis versus pneumonia. Mina Hsieh MD Lower Extremity Ultrasound 10/03/17 1324 Signed Impressions: Service Date/Time: Tuesday, October 03, 2017 14:17 - CONCLUSION: 1. Findings consistent with bilateral posterior tibial (calf) vein DVTs. Kwame Bozorgmanesh, MD Knee X-Ray 10/03/17 1144 Signed Impressions: Service Date/Time: Tuesday, October 03, 2017 12:49 - CONCLUSION: 1. Possible small joint effusion. 2. No evidence of acute fracture. 3. Severe bone demineralization. 4. Moderate arthropathy. Forest Dennis MD Femur X-Ray 10/03/17 1144 Signed Impressions: Service Date/Time: Tuesday, October 03, 2017 12:57 - CONCLUSION: 1. Significant decrease in bone mineralization. 2. No evidence of acute fracture. Forest Dennis MD Objective Remarks GENERAL: NAD, A&Ox2 CARDIOVASCULAR: regular, bradycardic RESPIRATORY: Clear to auscultation. Breath sounds equal bilaterally. No wheezes , rales, or rhonchi. GASTROINTESTINAL: Abdomen soft, non-tender, nondistended. Normal active bowel sounds MUSCULOSKELETAL: Extremities without clubbing, cyanosis, or edema. NEURO: Alert & Oriented x4 to person, place, time, situation. Moves all ext x4 Procedures none A/P Problem List: (1) Hyponatremia ICD Codes: E87.1 - Hyponatremia Status: Chronic Plan: Hyponatremia - Chronic in review of outpatient records baseline sodium between 127-130 - continue gentle IVF - encourage PO intake regular diet, pureed - likely nutritional, r/o SIADH - serum osmosity 269, urine osmolality 456 and urine [id number] - Na on admission 126 -> (10/04) 127 -> (10/05) 129 - start sodium tablets 1 gram PO BID - observe for volume overload - PT - supportive care - DVT prophylaxis (2) Weakness ICD Codes: R53.1 - Weakness Status: Acute Plan: Patient with recent fall 08/28 causing fracture R humerus patient is s/p closed reduction with pinning of right proximal humerus and 09/21/17with Dr. Nolen - SNF recommended at [place] of last hospitalization and family refused - patient now with generalized weakness and unable to stand from a chair - consult Dr. Nolen - R Femur x-ray reviewed significant decrease in bone mineralization. No evidence of acute fracture - R Knee x-ray reviewed possible small joint effusion. No evidence of acute fracture. Severe demineralization. - Orthopedic surgery recommending: NWB RUE dressing change q 2days in shoulder and forearm no RUE ROM. sling at all times xrays and possible dc pins next week 10/11 f/u ortho outpatient 1 week, otherwise i will see if still hospitalized next week - PT recommending rehab - Pt would benefit from SNF upon discharge, family admirably refusing (3) DVT (deep venous thrombosis) ICD Codes: I82.409 - Acute embolism and thrombosis of unspecified deep veins of unspecified lower extremity Status: Acute Plan: Bilateral occlusive lower extremity DVT - US reviewed and reveals: Right lower extremity occlusive thrombus in the posterior tibial vein. Left lower extremity occlusive thrombus in the posterior tibial vein - patient restarted Eliquis 1 week ago, increased does to 5 mg PO BID for treatment of DVT (4) Bradycardia ICD Codes: R00.1 - Bradycardia Status: Acute Plan: Bradycardia - Rate is bradycardic chronically. - Cardiology has been consultation in the past regarding need for possible pacemaker, no PPM per cardiology 11/2016 - Case d/w pt's Drive Thru Order Taker, Dr. Bradford. He will review records/previous w/u - Pt many NOT be a candidate d/t pt's concomitant medical problems, dementia, and advanced age. Dr. Tatum discussed patient's case in detail with patient's daughter and son in law over the phone as they were unable to come into the hospital will consult hospice plan to DC later today either home with HHC or hospice per families decision Problem Qualifiers (1) DVT (deep venous thrombosis): Qualified Codes: I82.443 - Acute embolism and thrombosis of tibial vein, bilateral Michelle Luu Oct 05, 2017 12:38
[2017-10-05] MEDS: traMADol HCL 50 MG TAB PO PRN (13:35)
[2017-10-05] MEDS: SODIUM CHLOR 0.9% 1000 ML INJ 1,000 ML IV SCH (13:49)
--- NOTE | 2017-10-05 13:54 | RADRPT ---
EXAM DATE/TIME: 10/05/2017 13:00 [place] COMPARISON: CHEST SINGLE AP, December 05, 2016, 18:42. RIBS LEFT(W PA CXR MIN 3VWS), February 06, 2015, 21:11. JAVID ST SINGLE AP, October 03, 2017, 16:18. CHEST SINGLE AP, September 21, 2017, 11:03. CT ABDOMEN & PEL VIS W CONTRAST, February 06, 2015, 5:15. INDICATIONS : Constipation. MEDICAL HISTORY : Cardiovascular disease. Hypertension Congestive heart failure. dementia, seizures SURGICAL HISTORY : right shoulder surgery ENCOUNTER: Initial ACUITY: 2 weeks PAIN SCORE: Non-responsive. LOCATION: Bilateral abdomen FINDINGS: 3 views of the abdomen demonstrates air within bowel in a nonobstructive pattern. There is stool with in the rectum and colon. No organomegaly is present. There is a round density overlying the left uppe r quadrant measuring 17 mm. No acute osseous abnormality is identified. There is direct lumbar scolio sis with multilevel degenerative change. CONCLUSION: 1. No acute abdominal abnormality is identified. There is a mild to moderate amount of stool througho ut the colon and rectum. 2. 17 mm round density overlying left upper quadrant is nonspecific. It could represent a calcified l esion within the spleen or a density in the overlying soft tissues. Miah Estes MD on October 05, 2017 at 13:50 Board Certified Radiologist. This report was verified electronically.
[2017-10-05] MEDS: cefTRIAXone INJ 1,000 MG in SODIUM CHLORIDE 0.9% INJ 100 ML IV SCH (14:00)
[2017-10-05 16:00] VITALS: BP 115/56; PULSE 65; RESP 20; TEMP 98.6; O2SAT 94
== END 2017-10-05 19:22 | disposition home or self-care (01) ==
LOC: NEDAMB 11:30 → NEDA 16:26 → NEPHCDU 18:47
PROVIDERS: ADMIT Hospitalist; ATTEND Hospitalist
DX: E87.1 Hypo-osmolality and hyponatremia (principal); R53.1 Weakness; I82.443 Acute embolism and thrombosis of tibial vein, bilateral; R00.1 Bradycardia, unspecified; I45.10 Unspecified right bundle-branch block; R94.31 Abnormal electrocardiogram [ECG] [EKG]; M25.561 Pain in right knee; R41.82 Altered mental status, unspecified; G31.9 Degenerative disease of nervous system, unspecified; K59.00 Constipation, unspecified; I11.0 Hypertensive heart disease with heart failure; I50.9 Heart failure, unspecified; E78.00 Pure hypercholesterolemia, unspecified; I48.91 Unspecified atrial fibrillation; E03.9 Hypothyroidism, unspecified; F03.90 Unspecified dementia, unspecified severity, without behavioral disturbance, psychotic disturbance, mood disturbance, and anxiety; K21.9 Gastro-esophageal reflux disease without esophagitis; M12.9 Arthropathy, unspecified; M17.0 Bilateral primary osteoarthritis of knee; Z79.899 Other long term (current) drug therapy; Z86.73 Personal history of transient ischemic attack (TIA), and cerebral infarction without residual deficits; W07.XXXA Fall from chair, initial encounter
CPT/HCPCS: 70450; 71010; 73552; 73564; 74000; 80048; 81001; 82436; 83930; 83935; 84300; 85025; 85610; 85730; 87077; 87086; 87186; 93005; 93970; 96361; 96365; 97162; 99285; G0378; G8987; J0696; J7030